=== PATIENT | male | born 1995 | race Caucasian/White ===

== ENCOUNTER 2023-04-11 09:01 | Outpatient (AMB) | payer BC, SELFPAY ==
--- NOTE | 2023-04-11 09:06 | MHC.PC.OV ---
Vital Signs 04/11/23 09:08 Height 6 ft Weight 235 lb BMI 31.9 BP 110/74 Blood Pressure Location Lt brachial Position Sitting Respiration 12 Pulse 70 Pulse Source Pulse Oximeter Temp 97.3 F Temp Source Temporal Artery Scan Pulse Oximetry (%) 98 Oxygen Delivery Method Room Air Intake Visit Reasons: discuss medical concerns Intake Note: Patient states that he is interested in getting a full blood screening. Patient states that he has a cyst on his left testicle that hasnt gone away but hasn't been painful. Patient states he has gotten a ultrasound of cyst and was told it was benign. Patient states he would also like cholesterol checked as well as A1c. Patient states he has thyroid disorder and needs T3 and T4 checked as well. Rental Coordinator Required: No Accompanied by: Self / Same As Patient Allergies No Known Allergies Allergy (Verified 04/11/23 09:37) Medication List - Last Reconciled 04/11/23 by Ashish Noriega CNP levothyroxine 150 mcg PO DAILY Tobacco use date assessed: 04/11/23 Dental Screening Dental Screen Date: 04/11/23 Did you have a dental visit in the last 12 months?: Yes Did you have a dental problem in the last 6 months where you did not have access to dental care?: No Was dental information given to patient?: Yes HPI HPI Comments History of Present Illness Details 28-year-old male presents to [facility] care. He notes that he was last evaluated by his former PCP and had blood work done on . He has past medical history significant for ADD, anxiety, palpitations, and hypothyroidism s/p iodine treatment for hyperthyroidism He is on levothyroxine 150 mcg daily. He states that he has never been on mediations for anxiety. He was on a medication for ADD which he does not recall, between 2006 and 2007. His mother stopped the mediations because he was reading a lot while on the medication. He notes that he was followed by cardiology for palpitations, he had a holter monitor no remarkable finding. He reports a painless cyst to his left testicle, found by ultrasound in 2021. He requests a new ultrasound. He notes that he is sexually active, in a monogamous relationship, and practices safe sex. He denies symptoms. He states that he has been eating healthy and exercising regularly. [facility] Medical History (Updated 04/11/23 @ 10:35 by Ashish Noriega CNP) ADD (attention deficit disorder) Anxiety Heart palpitations Hypothyroid Irregular heart beat Male circumcision Surgical History (Updated 04/11/23 @ 09:21 by Kalina Peters MA) History of placement of ear tubes [place] teeth extracted Family History (Updated 04/11/23 @ 09:22 by Kalina Peters MA) Father Thyroid disease Mother Thyroid disease Lymphoma Melanoma Breast cancer Social History Housing: Condominium Patient Tobacco Use Status: Former Tobacco user e-Cigarette/Vaping Use: Currently Using (THC PEN) service: No Current occupational status: employed 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 1. Little interest or pleasure in doing things: several days 2. Feeling down, depressed, or hopeless: several days 3. Trouble falling or staying asleep, or sleeping too much: nearly every day 4. Feeling tired or having little energy: several days 5. Poor appetite or overeating: nearly every day 6. Feeling bad about yourself - or that you are a failure or have let yourself or your family down: more than half the days 7. Trouble concentrating on things, such as reading the newspaper or watching television: nearly every day 8. Moving or speaking so slowly that other people could have noticed. Or the opposite - being so fidgety or restless that you have been moving around a lot more than usual: not at all 9. Thoughts that you would be better off or of hurting yourself in some way: not at all Total score: 14 Depression Screening Interpretation: Positive Depression Screening Follow-up: Declines treatment Source: Developed by Drs. Marcelino Agrawal, Eugenia El, Jerrell Gates and colleagues, with an educational carlos from [facility]. Thrive Questionnaire Date Thrive assessed: 04/11/23 I am a: Patient What is your living situation today?: I have a steady place to live Within the past 12 months, did the food you bought not last and you didn't have the money to get more?: Never true Within the past 12 months, did you worry whether your food would run out before you got money to buy more?: Never true Do you have trouble paying for medicines?: No Do you have trouble getting transportation to medical appointments?: No Do you have trouble paying your heating and electricity bill?: No Do you have trouble taking care of your child, family member or friend?: No Do you have trouble with day-to-day activities such as bathing, preparing meals, shopping, managing finances, etc.?: No Are you currently unemployed and looking for a job?: No Are you interested in more education?: Yes Please select the resources that you would like help with: Education Currently or been in a relationship where the following occur: no concerns reported AUDIT C Alcohol Use Questionnaire (AUDIT-C) 1. How often do you have a drink containing alcohol?: Monthly or less 2. How many drinks containing alcohol do you have on a typical day when you are drinking?: 3 or 4 3. How often do you have six or more drinks on one occasion?: Never Total Score: 2 VINAY-7 AMB Questionnaire VINAY-7 Date VINAY - 7 assessed: 04/11/23 Feeling nervous, anxious, or on edge: 3 = Nearly every day Not being able to stop or control worryin = More than half the days Worrying too much about different things: 2 = More than half the days Trouble relaxin = More than half the days Being so restless that it is hard to sit still: 1 = Several days Becoming easily annoyed or irritable: 1 = Several days Feeling afraid as if something awful might happen: 2 = More than half the days Total VINAY-7 score (0-4 normal; 5-9 mild; 10-14 moderate; 15-21 severe): 13 Source: Developed by Drs. Marcelino Agrawal, Eugenia El, Jerrell Gates and colleagues, with an educational carlos from [facility]. Review of Systems Const Details: Const Denies chills, Denies fatigue, Denies fever(s), Denies headache(s) and Denies weakness ENT Denies dizziness and Denies headache(s) Card Denies chest pain, Denies lightheadedness, Denies dyspnea and Denies other (Palpitations) Resp Denies cough, Denies dyspnea, Denies wheezing and Denies other ( shortness of breath) GI Denies abdominal pain, Denies melena, Denies hematochezia, Denies change in bowel habits, Denies dyspepsia and Denies nausea Reports left testicular cyst, Denies hematuria and Denies dysuria Musc Denies abnormal gait, Denies myalgias, Denies arthralgias, Denies numbness and Denies tingling Skin/Breast Denies rash, Denies unusual bruising and Denies wounds Neuro Denies abnormal gait, Denies dizziness, Denies headache(s), Denies memory loss, Denies numbness, Denies Sensory deficit (Neuro), Denies tingling and Denies weakness Psych Reports anxiety and Denies depression Endo Denies fatigue Aller/Immun Denies wheezing Physical exam (Primary Care) Vital Signs: Last Vital Signs Temp 97.3 F 04/11/23 09:08 Pulse 70 04/11/23 09:08 Resp 12 04/11/23 09:08 BP 110/74 04/11/23 09:08 Pulse Ox 98 04/11/23 09:08 Oxygen Delivery Method Room Air 04/11/23 09:08 BMI result Body Mass Index 31.9 Tobacco/Smoking Status: Tobacco use Status Tobacco use date assessed 04/11/23 04/11/23 09:26 Patient Tobacco Use Status Former Tobacco user 04/11/23 09:26 e-Cigarette/Vaping Use Currently Using (THC PEN) 04/11/23 09:26 PHQ-9: PHQ-9 Score PHQ-9: Total score 14 04/11/23 09:43 Depression Screening Interpretation: Positive Depression Screening Follow-up: Declines treatment Thrive Assessment: Date of Thrive Assessment Date Thrive assessed 04/11/23 04/11/23 09:26 Currently or been in a relationship where the following occur: no concerns reported Const Other: General: no acute distress and well developed Nutritional Appearance: well nourished Orientation/consciousness: patient oriented x3 HENMT Head: Yes normocephalic and Yes atraumatic Eyes General: appearance normal, both eyes and all related structures Pupils: Equal, round and reactive pupils present EOM: EOMs intact bilaterally Resp Effort & Inspection: normal respiratory effort Auscultation: clear to auscultation bilaterally Cardio Rate: regular rate Rhythm: regular rhythm Heart sounds: S1 normal heart sound present, S2 normal heart sound present, no gallops, no murmurs and no rubs GI Palpation (GI): No Abdominal aortic bruit present, Soft to palpation, nontender, No hepatosplenomegaly present and No Rebound tenderness present Auscultation: normal bowel sounds General: Yes no CVA tenderness Scrotum: Normal testicular exam Back/Spine/Pelvis Back: no CVA tenderness Cervical Spine: cervical ROM normal and No Cervical spine tenderness Thoracic/Lumbar Spine: thoraco-lumbar ROM normal, No pain with thoraco-lumbar ROM, No thoracic spinal tenderness and No lumbar spinal tenderness Extrem General: Yes normal to inspection, No edema and No calf tenderness Skin General: warm and dry. Normal skin color. Normal skin turgor Lesions: no lesions Rashes: no rashes Trauma: no lacerations or abrasions Wounds: no wounds Nails: normal Neuro General: patient oriented x3, gait normal and no focal neuro deficit Cranial nerves: Yes Equal, round and reactive pupils present Cognition (Neuro): normal cognition Gait exam (Neuro): Normal gait present Motor exam (neuro): 5/5 motor strength present throughout Sensory Exam: No Sensory deficit (Neuro) Psych Appearance: grossly normal Affect: normal affect Attitude: cooperative Thought process: Normal thought process present Assessment and Plan Assessment & Plan (1) Postablative hypothyroidism: Code(s): E89.0 - Postprocedural hypothyroidism Plan: Reports hypothyroidism s/p iodine treatment for hyperthyroidism Currently on levothyroxine 150 mcg daily. Continue to take daily as prescribed TSH/T4 ordered Will review lab results and make changes to his care plan if warranted (2) Anxiety and depression: Code(s): F41.9 - Anxiety disorder, unspecified; F32.A - Depression, unspecified Plan: PHQ-9 and VINAY-7 scores revealed moderate depression and anxiety respectively Declines therapy or medication treatment He states that he will continue to eat healthy and exercise Healthy diet and routine exercise encouraged Advised to inform his PCP if he changes his mind on therapy or medication treatment Follow-up in 1 month or return sooner with worsening or new symptoms Verbalized understanding and agreed with treatment plan. (3) Testicular cyst: Code(s): N44.2 - Benign cyst of testis Plan: He reports a painless cyst to his left testicle, found by ultrasound in 2021. Ultrasound ordered He will be contacted by ultrasound department schedule appointment Return with symptoms or concerns Verbalized understanding and agreed with treatment plan. (4) Laboratory tests ordered as part of a complete physical exam (CPE): Code(s): Z00.00 - Encounter for general adult medical examination without abnormal findings Plan: Fasting labs ordered as part of a complete physical exam. Advised to fast for at least 10 hours before getting labs drawn. May drink water Verbalized understanding and agreed with treatment plan. Orders: Orders Comprehensive Dike. Panel Fast Today Z00.00 - Encounter for general adult medical examination without abnormal findings Lipid Panel Today Z00.00 - Encounter for general adult medical examination without abnormal findings TSH reflex Free T4 Today Z00.00 - Encounter for general adult medical examination without abnormal findings Complete Blood Count Auto Diff Today Z00.00 - Encounter for general adult medical examination without abnormal findings UA CC w/rflx Micro + Cult Today Z00.00 - Encounter for general adult medical examination without abnormal findings US scrotum Today N44.2 - Benign cyst of testis Coding Level of Care Code New Pt Level 3 (77991) Diagnoses Postablative hypothyroidism E89.0 Anxiety and depression F41.9; F32.A Testicular cyst N44.2 Laboratory tests ordered as part of a complete physical exam (CPE) Z00.00
[2023-04-11 09:08] VITALS: BP 110/74; PULSE 70; RESP 12; TEMP 36.3; O2SAT 98; BMI 31.9
== END 2023-04-11 10:16 | disposition home or self-care (01) ==
PROVIDERS: PCP Nurse Practitioner Family; Visit Provider Nurse Practitioner Family
DX: E89.0 Postprocedural hypothyroidism (principal); F41.9 Anxiety disorder, unspecified; F32.A Depression, unspecified; N44.2 Benign cyst of testis; Z00.00 Encounter for general adult medical examination without abnormal findings
CPT/HCPCS: 99203

== ENCOUNTER 2023-04-11 10:25 | Outpatient (REF) | payer BC, SELFPAY ==
[2023-04-11 14:27] LABS: MANUAL DIFF FLAG NO
[2023-04-11 14:31] LABS: Appearance Urine Clear; Color Urine Yellow; Glucose Urine UA Negative (Negative); Leukocyte Esterase Urine Negative (Negative); Nitrite Urine Negative (Negative); PH 6.5 (5.0-9.0); Urine Blood Negative (Negative); Urine Ketones Negative (Negative); Urine Protein Negative (Neg-Trace)
[2023-04-11 14:41] LABS: Basophils Percent Auto 0.6 % (0-2); Eosinophils Absolute Auto 0.1 X10*3/uL (0.0-0.4); Eosinophils Percent Auto 1.1 % (0-4); Hematocrit 45.1 % (42.0-52.0); Hemoglobin 14.7 g/dl (14.0-18.0); Imm Gran Abs Auto 0.01 X10*3/uL (0.00-0.03); Imm Gran Pct Auto 0.2 % (0.0-0.4); Lymphocytes Absolute Auto 1.9 X10*3/uL (1.2-4.9); Lymphocytes Percent Auto 35.7 % (20-40); Mean Corpuscular HGB Conc 32.6 g/dl (31.0-36.0); Mean Corpuscular Hemoglobin 27.6 pg (27.0-33.0); Mean Corpuscular Volume 84.6 fL (80.0-98.0); Mean Platelet Volume 9.5 fL (9.4-12.4); Monocytes Absolute Auto 0.5 X10*3/uL (0.1-1.2); Neutrophils Absolute Auto 2.8 x10*3/uL (2.0-8.3); Neutrophils Percent Auto 52.4 % (45-73); Platelet Count 295 X10*3/uL (160-400); Red Blood Count 5.33 X10*6/uL (4.60-5.80); Red Cell Distribution Width 12.7 % (11.0-16.0); White Blood Count 5.3 X10*3/uL (4.8-10.8)
[2023-04-12 01:56] LABS: Alanine Aminotransferase 38 U/L (0-40); Albumin Level 4.8 g/dL (3.5-5.0); Alkaline Phosphatase 47 U/L (39-117); Anion Gap 11 (12-20); Aspartate Amino Transferase 23 U/L (5-37); Bilirubin Total 0.7 mg/dL (0.0-1.0); Blood Urea Nitrogen 18 mg/dL (9-16); Calcium 9.5 mg/dL (8.4-10.2); Carbon Dioxide 28 mmol/L (22-29); Chloride 104 mmol/L (96-108); Cholesterol 152 mg/dL; Estimated Glomerular Filt Rate > 60; Glucose Fasting 84 mg/dL (60-99); HDL Cholesterol 54 mg/dL; LDL Cholesterol Calculated 81 mg/dl; Potassium 4.5 mmol/L (3.3-5.1); Sodium 138 mmol/L (135-145); Total Protein 7.4 g/dL (6.5-8.0); Triglycerides 89 mg/dL
[2023-04-12 02:13] LABS: TSH reflex Free T4 2.71 uIU/mL (0.32-4.0)
== END 2023-04-11 10:26 | disposition home or self-care (01) ==
LOC: HO.WFDLDS 10:25
PROVIDERS: Visit Provider Nurse Practitioner Family
DX: Z00.00 Encounter for general adult medical examination without abnormal findings (principal); N44.2 Benign cyst of testis
CPT/HCPCS: 36415; 80053; 80061; 81003; 84443; 85025

== ENCOUNTER 2023-04-16 08:52 | Outpatient (REF) | payer BC, SELFPAY ==
--- NOTE | ~2023-04-16 | US_ITS ---
EXAMINATION: US SCROTUM CLINICAL INFORMATION: 28-year-old male with left testicular pain radiating to the shoulder. COMPARISON: None available. TECHNIQUE: A sonogram of the scrotum was performed assessing fontana-scale appearance and color Doppler flow. Spectral Doppler analysis of the arterial and venous flow were performed in the testes bilaterally. FINDINGS: RIGHT: Right testicle measures 5.0 x 2.3 x 3.7 cm, volume 22.3 mL. No focal testicular parenchymal lesions are visualized. Spectral Doppler analysis of the arterial and venous flow is mildly diminished in the right testis, in comparison to the left. Right epididymal head is normal in size, with 0.4 x 0.3 x 0.5 cm simple cyst.. No right hydrocele or varicocele is seen. Right epididymal Doppler flow is normal. LEFT: Left testicle measures 5.0 x 2.3 x 3.3 cm, volume 20 mL. No focal testicular parenchymal lesions are visualized. Spectral Doppler analysis of the arterial and venous flow is normal in the left testis. Left epididymal head is normal in size. Is mild hydrocele but no varicocele on the left. Left epididymal Doppler flow is normal. There is Left epididymal head 0.4 x 0.5 x 0.7 cm appendix. US/US scrotum IMPRESSION: Trace of hydrocele on the left. Simple cyst in the right epididymal head is mildly diminished flow or in the right testicle
== END 2023-04-16 08:53 | disposition home or self-care (01) ==
LOC: HO.HMGCX 08:52
PROVIDERS: PCP Nurse Practitioner Family; Visit Provider Nurse Practitioner Family
DX: N44.2 Benign cyst of testis (principal)
CPT/HCPCS: 76870

== ENCOUNTER 2023-05-11 09:53 | Outpatient (AMB) | payer BC, SELFPAY ==
--- NOTE | 2023-05-11 10:10 | A.OFFVIS_ITS ---
Intake Intake Visit Reasons: Benign cyst of testis Intake Note: New Patient presents for initial visit benign cyst of testis Urology Medications: none Blood Thinner: none Management Liaison Required: No Accompanied by: Self / Same As Patient Allergies No Known Allergies Allergy (Verified 05/11/23 11:03) Medication List - Last Reconciled 05/11/23 by SAVANNAH Mederos levothyroxine 150 mcg PO DAILY HPI HPI Comments History of Present Illness0 Details Lon is a very pleasant 28-year-old male patient of Dr. Noriega. He has a past medical history of ADD, anxiety, hypothyroidism, and palpitations. He presents to the office today as a new patient for left-sided hydrocele. Recent scrotal ultrasound results reviewed with the patient today. Trace hydrocele on left. Simple cyst in the right epididymal head. In discussion with the patient today he reports noting fluid filled sac to left testicle many years ago. He reports having followed-up with [facility] over 2 years ago at which time a scrotal ultrasound was ordered and reassurance was provided. Patient reports he recently moved here to [place] and would like to establish urological care. When asked he denies urinary urgency, urinary frequency, incontinence, nocturia, hematuria, dysuria, foul smelling urine, changes to urinary stream, flank pain, fever, and or chills. He is happy with his current voiding parameters. In assessment of the patient today small left- sided hydrocele present. Otherwise no masses, lesions, and or drainage noted to bilateral scrotum/ testicles/ and or penis. No pain elicited on exam today. In office urinalysis results reviewed with the patient today. Patient otherwise offers no other issues or concerns at this time. 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 Cognitive needs: No Hearing needs: No Vision needs: No Review of Systems Const Reports as per HPI Eyes Reports no additional complaints ENT Reports no additional complaints Card Reports as per HPI Resp Reports no additional complaints GI Reports no additional complaints Reports as per HPI Musc Reports no additional complaints Neuro Reports as per HPI Psych Reports as per HPI Endo Reports no additional complaints Physical Exam Const General: cooperative, healthy appearing, comfortable, no acute distress, well developed, alert and awake Orientation/consciousness: patient oriented x3 Limitations: no limitations HEENT Head: Yes normal to inspection, Yes normocephalic and Yes atraumatic Ears: hearing grossly normal bilaterally Eyes General: appearance normal, both eyes and all related structures Neck Neck: Yes normal visual inspection and Yes trachea midline Chest Chest palpation & inspection: normal inspection of the chest Resp Effort & Inspection: normal respiratory effort and able to speak in complete sentences Cardio Rate: regular rate GI Inspection: Yes normal to inspection General: Yes no CVA tenderness Penis: normal penis and circumcised Scrotum: Varicocele present (small ) on the left Testes: Testes normal Back/Spine/Pelvis Back: no CVA tenderness Skin General skin exam: no rashes or lesions noted Neuro General: patient oriented x3 Extrem General: Yes normal to inspection Psych Appearance: grossly normal and well kempt Mental Status: mental status grossly normal Speech and movement: Normal speech and movement present and Clear speech present Affect: normal affect Attitude: cooperative Thought process: Normal thought process present Thought content: Normal thought content present Insight: Good insight present (Psych) Judgement: Good judgement present (Psych) Results AMB Urinalysis, Automated UA Leukoctes 0 Michaela/uL Last Edit by [employer] on 05/11/23 10:25 UA Nitrite Last Edit by [employer] on 05/11/23 10:25 UA Urobilinogen 0.2 mg/dL Last Edit by [employer] on 05/11/23 10:25 UA Protein 15 mg/dL Last Edit by [employer] on 05/11/23 10:25 UA pH 8.5 Last Edit by [employer] on 05/11/23 10:25 UA Blood 0 Rigoberto/uL Last Edit by [employer] on 05/11/23 10:25 UA Specific [place] 1.010 Last Edit by Juany Gandhi on 05/11/23 10:25 UA Ketone Negative Last Edit by Juany Gandhi on 05/11/23 10:25 UA Bilirubin 0 mg/dL Last Edit by Juany Gandhi on 05/11/23 10:25 UA Glucose 0 mg/dL Last Edit by Juany Gandhi on 05/11/23 10:25 Results Reviewed Results Reviewed: Laboratory Last Values Urine pH (Auto) 8.5 05/11/23 10:11 Specific [place] (Auto) 1.010 05/11/23 10:11 Urine Protein (Auto) 15 mg/dL 05/11/23 10:11 Glucose (UA)(Auto) 0 mg/dL 05/11/23 10:11 Urine Ketones (Auto) Negative 05/11/23 10:11 Urine Blood (Auto) 0 Rigoberto/uL 05/11/23 10:11 Urine Bilirubin (Auto) 0 mg/dL 05/11/23 10:11 Urine Urobilinogen (Auto) 0.2 mg/dL 05/11/23 10:11 Leukocyte Esterase (Auto) 0 Michaela/uL 05/11/23 10:11 Date of Service: 04/16/23 EXAMINATION: US SCROTUM FINDINGS: RIGHT: Right testicle measures 5.0 x 2.3 x 3.7 cm, volume 22.3 mL. No focal testicular parenchymal lesions are visualized. Spectral Doppler analysis of the arterial and venous flow is mildly diminished in the right testis, in comparison to the left. Right epididymal head is normal in size, with 0.4 x 0.3 x 0.5 cm simple cyst.. No right hydrocele or varicocele is seen. Right epididymal Doppler flow is normal. LEFT: Left testicle measures 5.0 x 2.3 x 3.3 cm, volume 20 mL. No focal testicular parenchymal lesions are visualized. Spectral Doppler analysis of the arterial and venous flow is normal in the left testis. Left epididymal head is normal in size. Is mild hydrocele but no varicocele on the left. Left epididymal Doppler flow is normal. There is Left epididymal head 0.4 x 0.5 x 0.7 cm appendix. IMPRESSION: Trace of hydrocele on the left. Simple cyst in the right epididymal head is mildly diminished flow or in the right testicle Assessment & Plan Assessment & Plan (1) Hydrocele: Code(s): N43.3 - Hydrocele, unspecified Plan In office urinalysis results reviewed with the patient today. Recent scrotal ultrasound results reviewed with the patient today; as noted above. Reassurance provided. Small left-sided hydrocele present; patient denies pain Discussed at length potential causes for hydroceles. Discussed surveillance monitoring verses hydrocelectomy; discussed risks and benefits of noted interventions/treatment options All questions were answered Patient reports to be happy with current voiding parameters Discussed follow-up PRN however patient would like to continue with surveillance monitoring with imaging. Scrotal ultrasound in 6 months. Follow-up in 6 months with imaging to be completed prior; or sooner with any issues, concerns, and or questions. Orders: Orders US scrotum 6 Months N43.3 - Hydrocele, unspecified AMB Urinalysis Automated 05/11/23 Z13.9 - Encounter for screening, unspecified Patient Instructions: The patient had an opportunity to ask questions regarding the treatment plan. All questions were answered. Physical exam, labs, and imaging were discussed and reviewed in detail. As well as risks, benefits, and discussion of treatment choices. No major barriers to understanding were identified. The patient expressed understanding and agreement with the above treatment plan. The patient was made aware they should contact our office by phone for worsening of their current condition, the appearance of new symptoms, or with any ques tions or concerns. Compliance is encouraged with any medications and follow up testing that is ordered. It is a privilege to be allowed the opportunity to participate in? your urological care.? Again, if you have any questions or concerns If you have any questions or concerns please do not hesitate to contact me. The office is [phone]. This note is constructed using voice recognition software. While every effort has been made to ensure accuracy fireman errors may have been included. Yours sincerely, SAVANNAH Mederos Coding Level of Care Code New Pt Level 3 (01701) Diagnoses Hydrocele N43.3
== END 2023-05-11 11:42 | disposition home or self-care (01) ==
PROVIDERS: PCP Nurse Practitioner Family; Visit Provider Nurse Practitioner Family
DX: N43.3 Hydrocele, unspecified (principal)
CPT/HCPCS: 99203

== ENCOUNTER → 2023-05-11 09:53 | Outpatient (BNVA) | payer BC, SELFPAY | PROVIDERS: PCP Nurse Practitioner Family; Visit Provider Nurse Practitioner Family | DX: N43.3 Hydrocele, unspecified (principal) | CPT/HCPCS: 81003 ==

== ENCOUNTER 2023-05-15 08:19 | Outpatient (AMB) | payer BC, SELFPAY ==
--- NOTE | 2023-05-14 09:19 | ...WebTmpl.AM.PHNO ---
Nursing Note MA called patient to confirm appointment, completed the screening for VINAY-7 and PHQ-9. Patient reports he is aware that he struggles with anxiety and depression, he reports he does not feel he is in an active anxiety episode. Patient reports the appointment should be more about his concern for testicular cancer, which patient reports he does not have, and the urology referral. VINAY-7 AMB Questionnaire VINAY-7 Date VINAY - 7 assessed: 05/14/23 Feeling nervous, anxious, or on edge: 3 = Nearly every day Not being able to stop or control worryin = Several days Worrying too much about different things: 3 = Nearly every day Trouble relaxin = Several days Being so restless that it is hard to sit still: 3 = Nearly every day Becoming easily annoyed or irritable: 1 = Several days Feeling afraid as if something awful might happen: 1 = Several days Total VINAY-7 score (0-4 normal; 5-9 mild; 10-14 moderate; 15-21 severe): 13 Source: Developed by Drs. Marcelino Agrawal, Eugenia El, Jerrell Gates and colleagues, with an educational carlos from [employer]. PHQ-9 Over the last 2 weeks, how often have you been bothered by any of the following problems? 1. Little interest or pleasure in doing things: not at all 2. Feeling down, depressed, or hopeless: not at all 3. Trouble falling or staying asleep, or sleeping too much: more than half the days 4. Feeling tired or having little energy: several days 5. Poor appetite or overeating: more than half the days 6. Feeling bad about yourself - or that you are a failure or have let yourself or your family down: nearly every day 7. Trouble concentrating on things, such as reading the newspaper or watching television: more than half the days 8. Moving or speaking so slowly that other people could have noticed. Or the opposite - being so fidgety or restless that you have been moving around a lot more than usual: not at all 9. Thoughts that you would be better off or of hurting yourself in some way: not at all Total score: 10 Source: Developed by Drs. Marcelino Agrawal, Eugenia El, Jerrell Gates and colleagues, with an educational carlos from [employer]
--- NOTE | 2023-05-15 08:26 | A.OFFPC_ITS ---
Vital Signs 05/15/23 08:32 Height 6 ft Weight 236 lb 4 oz BMI 32.0 BP 116/76 Blood Pressure Location Rt brachial Position Sitting Respiration 12 Pulse 69 Pulse Source Pulse Oximeter Temp 98.1 F Temp Source Temporal Artery Scan Pulse Oximetry (%) 99 Oxygen Delivery Method Room Air Intake Visit Reasons: 1 mos CPE, anxiety, depression, urology Intake Note: Patient reports he is aware that he struggles with anxiety and depression, he reports he does not feel he is in an active anxiety episode. Patient reports the appointment should be more about his concern for testicular cancer, which patient reports he does not have, and the urology referral. Pet Technologist Required: No Accompanied by: Self / Same As Patient Allergies No Known Allergies Allergy (Verified 05/15/23 08:45) Medication List - Last Reconciled 05/15/23 by Ashish Noriega CNP levothyroxine 150 mcg PO DAILY Tobacco use date assessed: 04/11/23 Dental Screening Dental Screen Date: 05/15/23 Did you have a dental visit in the last 12 months?: Yes Did you have a dental problem in the last 6 months where you did not have access to dental care?: No Was dental information given to patient?: Patient has dentist HPI HPI Comments History of Present Illness Details 28-year-old male presents for anxiety and depression follow-up. He established care last month. He declined talk therapy and medication regimen. He noted he will continue with lifestyle modifications. An ultrasound was performed for reports of painless cyst to his left testicle with the following findings: IMPRESSION: Trace of hydrocele on the left. Simple cyst in the right epididymal head is mildly diminished flow or in the right testicle He was seen by Urology last week. The is to continue with surveillance monitoring with imaging. He is scheduled to have scrotal ultrasound in 6 months.?Discussed follow-up PRN however patient would like to continue with surveillance monitoring with imaging. Scrotal ultrasound in 6 months.? He denies acute symptoms today. 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 1. Little interest or pleasure in doing things: not at all 2. Feeling down, depressed, or hopeless: not at all 3. Trouble falling or staying asleep, or sleeping too much: more than half the days 4. Feeling tired or having little energy: several days 5. Poor appetite or overeating: more than half the days 6. Feeling bad about yourself - or that you are a failure or have let yourself or your family down: nearly every day 7. Trouble concentrating on things, such as reading the newspaper or watching television: more than half the days 8. Moving or speaking so slowly that other people could have noticed. Or the opposite - being so fidgety or restless that you have been moving around a lot more than usual: not at all 9. Thoughts that you would be better off or of hurting yourself in some way: not at all Total score: 10 Depression Screening Interpretation: Positive Depression Screening Follow-up: Existing condition and Declines treatment Source: Developed by Drs. Marcelino Agrawal, Eugeina El, Jerrell Gates and colleagues, with an educational carlos from [employer]. Thrive Questionnaire Date Thrive assessed: 04/11/23 VINAY-7 AMB Questionnaire VINAY-7 Date VINAY - 7 assessed: 05/15/23 Feeling nervous, anxious, or on edge: 3 = Nearly every day Not being able to stop or control worryin = Several days Worrying too much about different things: 3 = Nearly every day Trouble relaxin = Several days Being so restless that it is hard to sit still: 3 = Nearly every day Becoming easily annoyed or irritable: 1 = Several days Feeling afraid as if something awful might happen: 1 = Several days Total VINAY-7 score (0-4 normal; 5-9 mild; 10-14 moderate; 15-21 severe): 13 Source: Developed by Drs. Marcelino Agrawal, Eugenia El, Jerrell Gates and colleagues, with an educational carlos from [employer]. Review of Systems Const Details: Denies chills, Denies fatigue, Denies fever(s), Denies headache(s) and Denies weakness HEENT Denies change in vision, Denies dizziness, Denies headache(s), Denies hearing loss, Denies nasal congestion, Denies sinus pain, Denies sinus pressure and Denies sore throat Card Denies chest pain, Denies lightheadedness, Denies dyspnea and Denies other (palpitations) Resp Denies cough, Denies dyspnea and Denies wheezing GI Denies abdominal pain, Denies melena, Denies hematochezia, Denies change in bowel habits, Denies dyspepsia and Denies nausea Denies hematuria and Denies dysuria Musc Denies abnormal gait, Denies myalgias, Denies arthralgias, Denies numbness and Denies tingling Skin/Breast Denies rash, Denies unusual bruising and Denies wounds Neuro Denies abnormal gait, Denies dizziness, Denies headache(s), Denies memory loss, Denies numbness, Denies Sensory deficit (Neuro), Denies tingling and Denies weakness Psych Denies anxiety, Denies depression and Denies memory loss Endo Denies cold intolerance, Denies fatigue, Denies heat intolerance, Denies polydipsia and Denies polyuria Evaristo/Lymph Denies easy bleeding and Denies easy bruising Aller/Immun Denies wheezing Physical exam (Primary Care) Vital Signs: Last Vital Signs Temp 98.1 F 05/15/23 08:32 Pulse 69 05/15/23 08:32 Resp 12 05/15/23 08:32 BP 116/76 05/15/23 08:32 Pulse Ox 99 05/15/23 08:32 Oxygen Delivery Method Room Air 05/15/23 08:32 BMI result Body Mass Index 32.0 Tobacco/Smoking Status: Tobacco use Status Tobacco use date assessed 04/11/23 05/15/23 08:27 Patient Tobacco Use Status Former Tobacco user 08/22/23 08:27 e-Cigarette/Vaping Use Currently Using (THC PEN) 05/15/23 08:27 PHQ-9: PHQ-9 Score PHQ-9: Total score 10 05/15/23 08:53 Depression Screening Interpretation: Positive Depression Screening Follow-up: Existing condition and Declines treatment Thrive Assessment: Date of Thrive Assessment Date Thrive assessed 04/11/23 05/15/23 08:27 Const Other: General: no acute distress, well developed, alert and awake Nutritional Appearance: well nourished Orientation/consciousness: patient oriented x3 HENMT Head: Yes normocephalic and Yes atraumatic Ears: hearing grossly normal bilaterally and TM's normal bilaterally General nose exam: Normal external nose present and Normal nares present Mouth: Normal oral and palatal mucosa present and moist mucous membranes Teeth and gingiva: dentition normal Throat: Yes oropharynx normal Eyes Pupils: Equal, round and reactive pupils present and Pupil accommodation reflex normal EOM: EOMs intact bilaterally Neck Neck: Yes normal visual inspection, Yes no lymphadenopathy and Yes trachea midline Thyroid: Thyroid normal Carotids: no bruits Lymphatic: no lymphadenopathy noted Chest Chest palpation & inspection: normal inspection of the chest Resp Effort & Inspection: normal respiratory effort Auscultation: clear to auscultation bilaterally Cardio Rate: regular rate Rhythm: regular rhythm Heart sounds: S1 normal heart sound present, S2 normal heart sound present, no gallops, no murmurs and no rubs Bruits: no abdominal aortic bruits and no carotid bruits GI Palpation (GI): No Abdominal aortic bruit present, Soft to palpation, nontender, No hepatosplenomegaly present and No Rebound tenderness present Auscultation: normal bowel sounds General: Yes no CVA tenderness Back/Spine/Pelvis Back: no CVA tenderness Cervical Spine: cervical ROM normal and No Cervical spine tenderness Thoracic/Lumbar Spine: thoraco-lumbar ROM normal, No pain with thoraco-lumbar ROM, No thoracic spinal tenderness and No lumbar spinal tenderness Skin General: warm and dry. Normal skin color. Normal skin turgor Lesions: no lesions Rashes: no rashes Trauma: no lacerations or abrasions Wounds: no wounds Nails: normal Neuro General: patient oriented x3, gait normal and CN's II-XI intact bilaterally Cranial nerves: Yes Equal, round and reactive pupils present Cognition (Neuro): normal cognition Gait exam (Neuro): Normal gait present Motor exam (neuro): 5/5 motor strength present throughout Sensory Exam: No Sensory deficit (Neuro) Deep tendon reflexes (DTR's): Right patellar reflex intensity grade: 2+ and Left patellar reflex intensity grade: 2+ Extrem General: Yes normal to inspection, No edema and No calf tenderness Psych Appearance: grossly normal Affect: normal affect Attitude: cooperative Thought process: Normal thought process present Assessment and Plan Assessment & Plan (1) Normal physical examination, routine: Code(s): Z00.00 - Encounter for general adult medical examination without abnormal findings Plan: No significant physical restrictions or limitations noted Recent blood work reviewed with the patient; results were unremarkable Follow-up in 6 months for hypothyroidism Return sooner with concerns or symptoms Verbalized understanding and agreed with treatment plan. (2) Anxiety and depression: Code(s): F41.9 - Anxiety disorder, unspecified; F32.A - Depression, unspecified Plan: PHQ-9 and VINAY-7 scores revealed moderate depression and anxiety He declines talk therapy and medication regimen He will continue with lifestyle modification Healthy diet and routine exercise encouraged Advised to follow-up with his PCP if he changes his mind on therapy or medication treatment or if his symptoms persist or worsen Verbalized understanding and agreed with treatment plan. (3) Hydrocele: Code(s): N43.3 - Hydrocele, unspecified Plan: Continue follow-up with urology as planned Verbalized understanding and agreed with the plan. (4) Postablative hypothyroidism: Code(s): E89.0 - Postprocedural hypothyroidism Plan: Recent TSH is normal Continue with current treatment regimen Follow-up in 6 months. Perform TSH/T4 blood work before next visit Verbalized understanding and agreed with treatment plan. Coding Level of Care Code Est Pt Prev Care 18-39y(99215) Diagnoses Normal physical examination, routine Z00.00 Anxiety and depression F41.9; F32.A Hydrocele N43.3 Postablative hypothyroidism E89.0
[2023-05-15 08:32] VITALS: BP 116/76; PULSE 69; RESP 12; TEMP 36.7; O2SAT 99; BMI 32.0
== END 2023-05-15 09:10 | disposition home or self-care (01) ==
PROVIDERS: PCP Nurse Practitioner Family; Visit Provider Nurse Practitioner Family
DX: Z00.00 Encounter for general adult medical examination without abnormal findings (principal); F41.9 Anxiety disorder, unspecified; F32.A Depression, unspecified; N43.3 Hydrocele, unspecified; E89.0 Postprocedural hypothyroidism
CPT/HCPCS: 99395

== ENCOUNTER 2023-07-04 13:42 | Outpatient (AMB) | payer BC, SELFPAY ==
--- NOTE | 2023-07-04 13:46 | A.OFFPC_ITS ---
Vital Signs 07/04/23 13:47 Height 6 ft Weight 241 lb 2 oz BMI 32.7 BP 110/72 Blood Pressure Location Lt brachial Position Sitting Respiration 13 Pulse 93 Pulse Source Pulse Oximeter Temp 97.7 F Temp Source Oral Pulse Oximetry (%) 97 Oxygen Delivery Method Room Air Intake Visit Reasons: ? sinus infection, sore throat Intake Note: Patient states that he believes he got sick when traveling on a plane. Patient states that he wasnt feeling well on 06/05/23 and by 06/13/23 he started feeling better and went to the gym. Patient states that he went to a concert on 06/23/23 - 06/24/23 and when he got home and woke up he states that he had the worst post nasal drip. He states that when he blew his nose he had bright green mucus and dark phlegm when he coughs. Patient states that he has tight tension in back of neck as well as body aches and pains. Patient also has diarrhea. Tripe Scraper Required: No Accompanied by: Self / Same As Patient Allergies No Known Allergies Allergy (Verified 07/04/23 14:26) Medication List - Last Reconciled 07/04/23 by Ashish Noriega CNP ibuprofen (Advil) 400 mg PO Q6H levothyroxine 150 mcg PO DAILY Tobacco use date assessed: 04/11/23 Dental Screening Dental Screen Date: 07/04/23 Did you have a dental visit in the last 12 months?: Yes Did you have a dental problem in the last 6 months where you did not have access to dental care?: No Was dental information given to patient?: Patient has dentist HPI HPI Comments History of Present Illness Details 28-year-old male presents with complaint s of a sore throat for the past 8-9 days. He reports associated runny nose with green discharge, productive cough with dark-green phlegm, body aches, fatigue, and diarrhea. He denies fever, chills, weakness. He has been taking Advil with improvement improvement of the aches. He denies sick contacts. He had multiple negative rapid COVID tests. 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 Marcelino Agrawal, Eugenia El, Jerrell Gates and colleagues, with an educational carlos from [employer]. Review of Systems Const Details: Const Denies chills, Reports fatigue, Denies fever(s), Denies headache(s) and Denies weakness ENT Reports sore throat, Denies dizziness and Denies headache(s) Card Denies chest pain, Denies lightheadedness, Denies dyspnea and Denies other (Palpitations) Resp Reports cough, Denies dyspnea, Denies wheezing and Denies other ( shortness of breath) GI Denies abdominal pain, Denies melena, Denies hematochezia, Denies change in bowel habits, Denies dyspepsia and Denies nausea Denies hematuria and Denies dysuria Musc Denies abnormal gait, Denies myalgias, Denies arthralgias, Denies numbness and Denies tingling Skin/Breast Denies rash, Denies unusual bruising and Denies wounds Neuro Denies abnormal gait, Denies dizziness, Denies headache(s), Denies memory loss, Denies numbness, Denies Sensory deficit (Neuro), Denies tingling and Denies weakness Psych Denies anxiety, Denies depression, Denies memory loss Endo Denies cold intolerance, Denies fatigue, Denies heat intolerance, Denies polydipsia and Denies polyuria Aller/Immun Denies wheezing Physical exam (Primary Care) Vital Signs: Last Vital Signs Temp 97.7 F 07/04/23 13:47 Pulse 93 07/04/23 13:47 Resp 13 07/04/23 13:47 BP 110/72 07/04/23 13:47 Pulse Ox 97 07/04/23 13:47 Oxygen Delivery Method Room Air 07/04/23 13:47 BMI result Body Mass Index 32.7 Tobacco/Smoking Status: Tobacco use Status Tobacco use date assessed 04/11/23 07/04/23 13:56 Patient Tobacco Use Status Never used Tobacco 07/04/23 13:56 e-Cigarette/Vaping Use Currently Using (THC PEN) 07/04/23 13:56 Thrive Assessment: Date of Thrive Assessment Date Thrive assessed 04/11/23 07/04/23 13:56 Const Other: General: no acute distress and well developed Nutritional Appearance: well nourished Orientation/consciousness: patient oriented x3 HENMT Head is normocephalic Bilateral ear canal and TM are normal Nasal turbinates with significant erythema, no edema or discharge noted Oropharynx is pink and moist Sinuses are nontender with palpation No auricular or cervical lymphadenopathy Eyes General: appearance normal, both eyes and all related structures Pupils: Equal, round and reactive pupils present EOM: EOMs intact bilaterally Resp Effort & Inspection: normal respiratory effort Auscultation: clear to auscultation bilaterally Cardio Rate: regular rate Rhythm: regular rhythm Heart sounds: S1 normal heart sound present, S2 normal heart sound present, no gallops, no murmurs and no rubs GI Palpation (GI): No Abdominal aortic bruit present, Soft to palpation, nontender, No hepatosplenomegaly present and No Rebound tenderness present Auscultation: normal bowel sounds General: Yes no CVA tenderness Back/Spine/Pelvis Back: no CVA tenderness Cervical Spine: cervical ROM normal and No Cervical spine tenderness Thoracic/Lumbar Spine: thoraco-lumbar ROM normal, No pain with thoraco-lumbar ROM, No thoracic spinal tenderness and No lumbar spinal tenderness Extrem General: Yes normal to inspection, No edema and No calf tenderness Skin General: warm and dry. Normal skin color. Normal skin turgor Lesions: no lesions Rashes: no rashes Trauma: no lacerations or abrasions Wounds: no wounds Nails: normal Neuro General: patient oriented x3, gait normal and no focal neuro deficit Cranial nerves: Yes Equal, round and reactive pupils present Cognition (Neuro): normal cognition Gait exam (Neuro): Normal gait present Sensory Exam: No Sensory deficit (Neuro) Psych Appearance: grossly normal Affect: normal affect Attitude: cooperative Thought process: Normal thought process present Assessment and Plan Assessment & Plan (1) Viral upper respiratory illness: Code(s): J06.9 - Acute upper respiratory infection, unspecified Plan: Likely viral illness though possibly allergies. No exam evidence of bacterial infection Rapid strep test is negative Viral illness There is no antibiotic medication for viruses.? They must run their course.? Most average 5-7 days but 7-10 days is not uncommon and up to 14 days is still possible.? A cough is often the last symptom to resolve and this can last for weeks in some cases. Rest Hydrate well -? Drink plenty of fluids.? Especially water. Tylenol or ibuprofen for muscle aches, headache, fever/discomfort Robitussin for cough Cannot rule out COVID-19/RSV/Flu infection Nasal swab acquired and will be sent to the lab Return for new or worsening symptoms Verbalized understanding and agreed with treatment plan. (2) Cough: Code(s): R05.9 - Cough, unspecified Qualifiers: Cough type: acute Qualified Code(s): R05.1 - Acute cough Plan: As above (3) Diarrhea: Code(s): R19.7 - Diarrhea, unspecified Qualifiers: Diarrhea type: presumed infectious Qualified Code(s): R19.7 - Diarrhea, unspecified Plan: Likely due to viral infection Advised to avoid contaminated food or water Effective hand washing encouraged May take Metamucil 1 tbsp makes in 8 oz of water daily and may increase to 2 tbsp if symptoms persist or worsen Return with new or worsening symptoms Verbalized understanding and agreed with treatment plan. (4) Rhinitis: Code(s): J31.0 - Chronic rhinitis Qualifiers: Allergic rhinitis trigger: unspecified Allergic rhinitis seasonality: unspecified Plan: Reports associated runny nose with green discharge Nasal turbinate with significant erythema, no edema noted Likely viral although allergies as possible There may be superimposed bacterial infection Z-José Antonio ordered. Take as prescribed May take Tylenol ibuprofen for pain or discomfort Follow-up with worsening or new symptoms Verbalized understanding and agreed with treatment plan. Orders: Orders SARS-CoV2/FLU/RSV Today J06.9 - Acute upper respiratory infection, unspecified AMB Rapid Strep Screen Today Z13.9 - Encounter for screening, unspecified Medications: New azithromycin (Zithromax Z-José Antonio) For 250 mg dose pack: take 500 mg today (day 1), then 250 mg for 4 days (days 2-5) PO 6 tabs 0RF Coding Level of Care Code Est Pt Level 3 (87510) Diagnoses Viral upper respiratory illness J06.9 Acute cough R05.1 Cough type: acute Diarrhea of presumed infectious origin R19.7 Diarrhea type: presumed infectious Rhinitis J31.0 Allergic rhinitis trigger: unspecified Allergic rhinitis seasonality: unspecified
[2023-07-04 13:47] VITALS: BP 110/72; PULSE 93; RESP 13; TEMP 36.5; O2SAT 97; BMI 32.7
== END 2023-07-04 14:40 | disposition home or self-care (01) ==
PROVIDERS: PCP Nurse Practitioner Family; Visit Provider Nurse Practitioner Family
DX: J06.9 Acute upper respiratory infection, unspecified (principal); R05.1 Acute cough; R19.7 Diarrhea, unspecified; J02.9 Acute pharyngitis, unspecified; J31.0 Chronic rhinitis
CPT/HCPCS: 87880; 99214

== ENCOUNTER 2023-07-04 14:40 | Outpatient (REF) | payer BC, SELFPAY ==
[2023-07-05 12:58] LABS: Influenza A PCR NEGATIVE (Negative); Influenza B PCR NEGATIVE (Negative); Resp Syncy Virus RNA Qual PCR NEGATIVE (Negative); SARS COV2 PCR INHOUSE NEGATIVE (Negative)
== END 2023-07-04 14:41 | disposition home or self-care (01) ==
LOC: HO.LAB 14:40
PROVIDERS: Visit Provider Nurse Practitioner Family
DX: J06.9 Acute upper respiratory infection, unspecified (principal)
CPT/HCPCS: 0241U

== ENCOUNTER 2023-09-10 09:10 | Outpatient (AMB) | payer BC, SELFPAY ==
[2023-09-10 09:33] VITALS: BP 130/80; PULSE 72; TEMP 36.4; O2SAT 97; BMI 33.6
--- NOTE | 2023-09-10 09:33 | AM.OFFWIN_ITS ---
Intake Vital Signs 09/10/23 09:33 Height 6 ft Weight 112.491 kg BMI 33.6 BP 130/80 Blood Pressure Location Rt brachial Position Sitting Pulse 72 Pulse Source Pulse Oximeter Temp 97.6 F Temp Source Temporal Artery Scan Pulse Oximetry (%) 97 Oxygen Delivery Method Room Air Intake Visit Reasons: EP phlem sinus pain sore throat [id number] Intake Note: pt is here today for sinus pain, sore throat started 1 week ago Patient Tobacco Use Status: Never used Tobacco Allergies No Known Allergies Allergy (Verified 09/10/23 09:34) Do you need a note to return to daycare/school/sports/work: No HPI HPI Comments History of Present Illness Details 28-year-old male presents to the clinic for sick visit patient reporting sinus congestion, fatigue, malaise, myalgias, sore throat for the past 7 days, does not seem to be improving on its own. Patient reports this feels like a typical sinus infection. Reports he had URI that just seemed to worsen. Denies headache, vision changes, dizziness, weakness, chest pain, shortness of breath, fevers, chills, nausea, vomiting, abdominal pain and diarrhea Physical exam benign Likely sinusitis versus viral illness versus pharyngitis. Unlikely epiglottitis, retropharyngeal or peritonsillar abscess, threat to airway, pneumonia, ACS, PE, meningitis or encephalitis Plan will discharge patient home with Augmentin. Educated patient on diagnosis and treatment plan, answered all question, patient verbalizes understanding. At this time patient will be discharged home, advised to return with new or worsening symptoms. Educated on worrisome signs and symptoms and when to return. At this time I feel comfortable discharge home. 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 Oriented X3.? No acute distress.? Head: Normocephalic, atraumatic, no step-offs or deformities Eyes: Pupils equal, round and reactive to light.? Neck: Normal inspection.? Neck supple.? CVS: Normal heart rate and rhythm.? Pulses normal.? Respiratory: No respiratory distress.? Breath sounds normal.? Abdomen: Soft and nontender.? Skin: Skin warm and dry.? Normal skin color.? Normal skin turgor.? Extremities: No lower extremity edema.? No calf ttp. 5/5 strength to bilateral upper and lower extremities Neuro: Oriented X 3.? No motor deficit.? No sensory deficit. CN 2-12 intact Assessment & Plan Assessment & Plan (1) Sinusitis: Code(s): J32.9 - Chronic sinusitis, unspecified Plan Take your medications as prescribed. If you were prescribed antibiotics today, it is important that you take your medication to their entirety, do not skip any doses, do not finish them early. Follow-up with your primary care provider this week. Return to the emergency department with new or worsening symptoms. Such as fevers, chills, chest pain, shortness of breath, nausea, vomiting, dizziness, headache, vision changes, lethargy In case of emergency call 911 Medications: New amoxicillin-pot clavulanate 875-125 mg 1 tab PO BID 10 days 20 tabs 0RF prednisone 20 mg PO DAILY 5 days 5 tabs 0RF Coding Level of Care Code Est Pt Level 3 (69687) Diagnoses Sinusitis J32.9
== END 2023-09-10 10:39 | disposition home or self-care (01) ==
PROVIDERS: PCP Nurse Practitioner Family; Visit Provider Physician Assistant
DX: J32.9 Chronic sinusitis, unspecified (principal)
CPT/HCPCS: 99213

== ENCOUNTER 2023-11-07 09:52 | Outpatient (REF) | payer BC, SELFPAY ==
--- NOTE | ~2023-11-07 | US_ITS ---
EXAMINATION: US SCROTUM CLINICAL INFORMATION: Hydrocele, unspecified. COMPARISON: Scrotal ultrasound 04/16/2023. TECHNIQUE: A sonogram of the scrotum was performed assessing fontana-scale appearance and color Doppler flow. Spectral Doppler analysis of the arterial and venous flow were performed in the testes bilaterally. FINDINGS: RIGHT: Right testicle measures 5.0 x 2.5 x 3.7 cm, volume 23.8 mL. No focal testicular parenchymal lesions are visualized. Spectral Doppler analysis of the arterial and venous flow is normal in the right testis. Right epididymal head is normal in size. A 3 mm right epididymal head cyst versus spermatocele is seen. No right varicocele is seen. Right epididymal Doppler flow is normal. There is a small hydrocele. LEFT: Left testicle measures 5.0 x 2.4 x 3.4 cm, volume 20.7 mL. No focal testicular parenchymal lesions are visualized. Spectral Doppler analysis of the arterial and venous flow is normal in the left testis. Left epididymal head is normal in size. No left varicocele is seen. Left epididymal Doppler flow is normal. There is a small hydrocele. US/US scrotum IMPRESSION: 1. A 3 mm right epididymal head cyst versus spermatocele is seen. 2. There are small bilateral hydroceles. 3. No testicular mass, torsion or varicocele is seen bilaterally.
== END 2023-11-07 09:53 | disposition home or self-care (01) ==
LOC: HO.HMGCX 09:52
PROVIDERS: PCP Nurse Practitioner Family; Visit Provider Nurse Practitioner Family
DX: N43.3 Hydrocele, unspecified (principal)
CPT/HCPCS: 76870

== ENCOUNTER 2023-11-19 09:57 | Outpatient (REF) | payer BC, SELFPAY ==
[2023-11-19 14:16] LABS: TSH reflex Free T4 1.17 uIU/mL (0.32-4.0)
== END 2023-11-19 09:58 | disposition home or self-care (01) ==
LOC: HO.HMGCLDS 09:57
PROVIDERS: PCP Nurse Practitioner Family; Visit Provider Nurse Practitioner Family
DX: E89.0 Postprocedural hypothyroidism (principal)
CPT/HCPCS: 36415; 84443

== ENCOUNTER 2023-11-20 09:31 | Outpatient (AMB) | payer BC, SELFPAY ==
--- NOTE | 2023-11-20 09:39 | A.OFFVIS_ITS ---
Intake Intake Visit Reasons: 6 month u/s(set) Intake Note: Patient presents today for follow up visit benign cyst of testis and ultrasound results Imagin11/07/23 Urology Medications: none Blood Thinner: none Patient stated he feels a little bit better, however he still feel uncomfortable when going to sleep, or when taking a shower. He noticed one testicle far from the other. Product Safety Engineer Required: No Accompanied by: Self / Same As Patient Allergies No Known Allergies Allergy (Verified 11/20/23 22:34) Medication List - Last Reconciled 11/20/23 by SAVANNAH Mederos levothyroxine 150 mcg PO DAILY 90 days HPI HPI Comments History of Present Illness Details Lon is a very pleasant 28-year-old male patient of Dr. Noriega. He has a past medical history of ADD, anxiety, hypothyroidism, and palpitations. He presents to the office today for follow-up of his left-sided hydrocele. Of note, patient was seen approximately 6 months ago at which time reassurance was provided and recommendations were made for p.r.n. follow-up however patient would like to continue with surveillance monitoring. Recent scrotal imaging results reviewed with the patient today. 3 mm right epididymal head cyst versus spermatocele is seen. There are small bilateral hydroceles. No testicular mass, torsion, or varicocele is noted bilaterally. In discussion with the patient today reports to be doing and feeling well. He denies any urinary issues. He reports noting after bathing one testicle sits higher than the other. He otherwise denies pain, nausea, and or vomiting. When asked he denies urinary urgency, urinary frequency, incontinence, nocturia, hematuria, dysuria, foul smelling urine, changes to urinary stream, flank pain, fever, and or chills. He is happy with his current voiding parameters. In office urinalysis results reviewed with the patient today. Patient otherwise offers no other issues or concerns at this time. 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 Cognitive needs: No Hearing needs: No Vision needs: No Review of Systems Const Reports as per HPI Eyes Reports no additional complaints ENT Reports no additional complaints Card Reports as per HPI Resp Reports no additional complaints GI Reports no additional complaints Reports as per HPI Musc Reports no additional complaints Neuro Reports as per HPI Psych Reports as per HPI Endo Reports no additional complaints Physical Exam Const General: cooperative, healthy appearing, comfortable, no acute distress, well developed, alert and awake Orientation/consciousness: patient oriented x3 Limitations: no limitations HEENT Head: Yes normal to inspection, Yes normocephalic and Yes atraumatic Ears: hearing grossly normal bilaterally Eyes General: appearance normal, both eyes and all related structures Neck Neck: Yes normal visual inspection and Yes trachea midline Chest Chest palpation & inspection: normal inspection of the chest Resp Effort & Inspection: normal respiratory effort and able to speak in complete sentences Cardio Rate: regular rate GI Inspection: Yes normal to inspection General: Yes no CVA tenderness Penis: normal penis and circumcised Back/Spine/Pelvis Back: no CVA tenderness Skin General skin exam: no rashes or lesions noted Neuro General: patient oriented x3 Extrem General: Yes normal to inspection Psych Appearance: grossly normal and well kempt Mental Status: mental status grossly normal Speech and movement: Normal speech and movement present and Clear speech present Affect: normal affect Attitude: cooperative Thought process: Normal thought process present Thought content: Normal thought content present Insight: Good insight present (Psych) Judgement: Good judgement present (Psych) Results AMB Urinalysis, Automated UA Leukoctes 0 Michaela/uL Last Edit by Kelsey Patel CMA on 11/20/23 09 :56 UA Nitrite Negative Last Edit by [employer] Patel, [facility] on 11/20/23 09: 56 UA Urobilinogen 0.2 mg/dL Last Edit by Kelsey Patelparveen Patel [facility] on 4 09:56 UA Protein 0 mg/dL Last Edit by Kelsey Patel, [facility] on 11/20/23 09:56 UA pH 6.0 Last Edit by Kelsey Patelparveen Patel, [facility] on 11/20/23 09:56 UA Blood 10 Rigoberto/uL Last Edit by [employer] Pat[employer], [facility] on 11/20/23 09:56 UA Specific [place] 1.015 Last Edit by Kelsey Patel, [facility] on 09:56 UA Ketone Negative Last Edit by Kelsey Patelparveen Patel, [facility] on 11/20/23 09:5 6 UA Bilirubin 0 mg/dL Last Edit by Kelsey Patelparveen Patel, [facility] on 11/20/23 09: 56 UA Glucose 0 mg/dL Last Edit by Kelsey Patelparveen Patel [facility] on 11/20/23 09:56 Results Reviewed Results Reviewed: Laboratory Last Values Urine pH (Auto) 6.0 11/20/23 09:55 Specific [place] (Auto) 1.015 11/20/23 09:55 Urine Protein (Auto) 0 mg/dL 11/20/23 09:55 Glucose (UA)(Auto) 0 mg/dL 11/20/23 09:55 Urine Ketones (Auto) Negative 11/20/23 09:55 Urine Blood (Auto) 10 Rigoberto/uL 11/20/23 09:55 Urine Nitrite (Auto) Negative 11/20/23 09:55 Urine Bilirubin (Auto) 0 mg/dL 11/20/23 09:55 Urine Urobilinogen (Auto) 0.2 mg/dL 11/20/23 09:55 Leukocyte Esterase (Auto) 0 Michaela/uL 11/20/23 09:55 Date of Service: 11/07/23 EXAMINATION: US SCROTUM FINDINGS: RIGHT: Right testicle measures 5.0 x 2.5 x 3.7 cm, volume 23.8 mL. No focal testicular parenchymal lesions are visualized. Spectral Doppler analysis of the arterial and venous flow is normal in the right testis. Right epididymal head is normal in size. A 3 mm right epididymal head cyst versus spermatocele is seen. No right varicocele is seen. Right epididymal Doppler flow is normal. There is a small hydrocele. LEFT: Left testicle measures 5.0 x 2.4 x 3.4 cm, volume 20.7 mL. No focal testicular parenchymal lesions are visualized. Spectral Doppler analysis of the arterial and venous flow is normal in the left testis. Left epididymal head is normal in size. No left varicocele is seen. Left epididymal Doppler flow is normal. There is a small hydrocele. IMPRESSION: 1. A 3 mm right epididymal head cyst versus spermatocele is seen. 2. There are small bilateral hydroceles. 3. No testicular mass, torsion or varicocele is seen bilaterally. Assessment & Plan Assessment & Plan (1) Hydrocele: Code(s): N43.3 - Hydrocele, unspecified Plan In office urinalysis results reviewed with the patient today. Recent scrotal ultrasound results reviewed with the patient today; as noted above. Reassurance provided. Discussed at length potential causes for hydroceles. Discussed surveillance monitoring verses hydrocelectomy; discussed risks and benefits of noted interventions/treatment options All questions were answered Patient reports to be happy with current voiding parameters Discussed follow-up PRN however patient would like to continue with surveillance monitoring with imaging. Scrotal ultrasound in 6 months. Follow-up in 6 months with imaging to be completed prior; or sooner with any issues, concerns, and or questions. Orders: Orders AMB Urinalysis Automated Today R33.9 - Retention of urine, unspecified US scrotum 6 Months N43.3 - Hydrocele, unspecified Patient Instructions: The patient had an opportunity to ask questions regarding the treatment plan. All questions were answered. Physical exam, labs, and imaging were discussed and reviewed in detail. As well as risks, benefits, and discussion of treatment choices. No major barriers to understanding were identified. The patient expre ssed understanding and agreement with the above treatment plan. The patient was made aware they should contact our office by phone for worsening of their current condition, the appearance of new symptoms, or with any questions or concerns. Compliance is encouraged with any medications and follow up testing that is ordered. It is a privilege to be allowed the opportunity to participate in? your urological care.? Again, if you have any questions or concerns If you have any questions or concerns please do not hesitate to contact me. The office is [phone]. This note is constructed using voice recognition software. While every effort has been made to ensure accuracy system operation superintendent errors may have been included. Yours sincerely, SARANYA Mederos-ALTAGRACIA Coding Level of Care Code Est Pt Level 3 (95860) Diagnoses Hydrocele N43.3
== END 2023-11-20 10:07 | disposition home or self-care (01) ==
PROVIDERS: PCP Nurse Practitioner Family; Visit Provider Nurse Practitioner Family
DX: N43.3 Hydrocele, unspecified (principal)
CPT/HCPCS: 99213

== ENCOUNTER → 2023-11-20 09:31 | Outpatient (BNVA) | payer BC, SELFPAY | PROVIDERS: PCP Nurse Practitioner Family; Visit Provider Nurse Practitioner Family | DX: N43.3 Hydrocele, unspecified (principal); R33.9 Retention of urine, unspecified | CPT/HCPCS: 81003 ==

== ENCOUNTER 2023-11-20 12:15 | Outpatient (AMB) | payer BC, SELFPAY ==
--- NOTE | 2023-11-20 12:23 | A.OFFPC_ITS ---
Vital Signs 11/20/23 12:27 Height 6 ft Weight 254 lb BMI 34.4 BP 112/64 Blood Pressure Location Lt brachial Position Sitting Respiration 13 Pulse 86 Pulse Source Pulse Oximeter Pulse Oximetry (%) 97 Oxygen Delivery Method Room Air Intake Visit Reasons: 6 mos hypothyroidism Intake Note: Patient is here for a follow up of his thyroid. Patient reports he is having gastrointestinal concerns. Aerodynamics Professor Required: No Accompanied by: Self / Same As Patient Allergies No Known Allergies Allergy (Verified 11/20/23 12:39) Medication List - Last Reconciled 11/20/23 by Ashish Noriega CNP levothyroxine 150 mcg PO DAILY 90 days Tobacco use date assessed: 04/11/23 HPI HPI Comments History of Present Illness Details 28 y/o male presents for hyothyroidism f ollow up He admits to taking Levothyroxine 150 mcg daily as prescribed Reports bright red rectal bleeding with wiping for about a year. He also reports frequent non-bloody diarrhea, 3-4 times in the morning, for a year. 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 Marcelino Agrawal, Eugenia El, Jerrell Gates and colleagues, with an educational carlos from [employer]. Review of Systems Const Details: Const Denies chills, Denies fatigue, Denies fever(s), Denies headache(s) and Denies weakness ENT Denies dizziness and Denies headache(s) Card Denies chest pain, Denies lightheadedness, Denies dyspnea and Denies other (Palpitations) Resp Denies cough, Denies dyspnea, Denies wheezing and Denies other ( shortness of breath) GI Denies abdominal pain, Denies melena, Denies hematochezia, Denies change in bowel habits, Denies dyspepsia and Denies nausea Denies hematuria and Denies dysuria Musc Denies abnormal gait, Denies myalgias, Denies arthralgias, Denies numbness and Denies tingling Skin/Breast Denies rash, Denies unusual bruising and Denies wounds Neuro Denies abnormal gait, Denies dizziness, Denies headache(s), Denies memory loss, Denies numbness, Denies Sensory deficit (Neuro), Denies tingling and Denies weakness Psych Denies anxiety, Denies depression, Denies memory loss Endo Denies cold intolerance, Denies fatigue, Denies heat intolerance, Denies polydipsia and Denies polyuria Aller/Immun Denies wheezing Physical exam (Primary Care) Vital Signs: Last Vital Signs Pulse 86 11/20/23 12:27 Resp 13 11/20/23 12:27 BP 112/64 11/20/23 12:27 Pulse Ox 97 11/20/23 12:27 Oxygen Delivery Method Room Air 11/20/23 12:27 BMI result Body Mass Index 34.4 Tobacco/Smoking Status: Tobacco use Status Tobacco use date assessed 04/11/23 11/20/23 12:26 Patient Tobacco Use Status Never used Tobacco 11/20/23 12:26 e-Cigarette/Vaping Use Currently Using 11/20/23 12:26 Thrive Assessment: Date of Thrive Assessment Date Thrive assessed 04/11/23 11/20/23 12:26 Const Other: General: no acute distress and well developed Nutritional Appearance: well nourished Orientation/consciousness: patient oriented x3 HENMT Head: Yes normocephalic and Yes atraumatic Eyes General: appearance normal, both eyes and all related structures Pupils: Equal, round and reactive pupils present EOM: EOMs intact bilaterally Resp Effort & Inspection: normal respiratory effort Auscultation: clear to auscultation bilaterally Cardio Rate: regular rate Rhythm: regular rhythm Heart sounds: S1 normal heart sound present, S2 normal heart sound present, no gallops, no murmurs and no rubs GI Palpation (GI): No Abdominal aortic bruit present, Soft to palpation, nontender, No hepatosplenomegaly present and No Rebound tenderness present Auscultation: normal bowel sounds General: Yes no CVA tenderness Back/Spine/Pelvis Back: no CVA tenderness Cervical Spine: cervical ROM normal and No Cervical spine tenderness Thoracic/Lumbar Spine: thoraco-lumbar ROM normal, No pain with thoraco-lumbar ROM, No thoracic spinal tenderness and No lumbar spinal tenderness Extrem General: Yes normal to inspection, No edema and No calf tenderness Skin General: warm and dry. Normal skin color. Normal skin turgor Neuro General: patient oriented x3, gait normal and no focal neuro deficit Cranial nerves: Yes Equal, round and reactive pupils present Cognition (Neuro): normal cognition Gait exam (Neuro): Normal gait present Sensory Exam: No Sensory deficit (Neuro) Psych Appearance: grossly normal Affect: normal affect Attitude: cooperative Thought process: Normal thought process present Results AMB Urinalysis, Automated UA Leukoctes 0 Michaela/uL Last Edit by Kelsey Patel CMA on 11/20/23 09 :56 UA Nitrite Negative Last Edit by Kelsey Patel CMA on 11/20/23 09: 56 UA Urobilinogen 0.2 mg/dL Last Edit by Kelsey Patel CMA on 4 09:56 UA Protein 0 mg/dL Last Edit by Kelsey Patel CMA on 11/20/23 09:56 UA pH 6.0 Last Edit by Kelsey Patel CMA on 11/20/23 09:56 UA Blood 10 Rigoberto/uL Last Edit by Kelsey Patel CMA on 11/20/23 09:56 UA Specific [place] 1.015 Last Edit by Kelsey Patel CMA on 09:56 UA Ketone Negative Last Edit by Kelsey Patel CMA on 11/20/23 09:5 6 UA Bilirubin 0 mg/dL Last Edit by Kelsey Patel CMA on 11/20/23 09: 56 UA Glucose 0 mg/dL Last Edit by Kelsey Patel CMA on 11/20/23 09:56 Assessment and Plan Assessment & Plan (1) Postablative hypothyroidism: Code(s): E89.0 - Postprocedural hypothyroidism Plan: Recent TSh level is normal Continue current treatment Advised to get routine fasting labs done before his next visit Follow up in 6 months for an extended physical exam Return sooner with symptoms or concerns Verbalized understanding and agreed with the plan (2) Rectal bleeding: Code(s): K62.5 - Hemorrhage of anus and rectum Plan: Reports bright red rectal bleeding with wiping and frequent non-bloody diarrhea for the past 1 year He has been doing sitz baths without improvement Bleeding is likely caused by external hemorrhoids May use hemorrhoidal cream as needed May continue sitz baths Referred to Gastroenterology Follow-up with worsening or new symptoms Verbalized understanding and agreed with treatment plan (3) Diarrhea: Code(s): R19.7 - Diarrhea, unspecified Qualifiers: Diarrhea type: presumed infectious Qualified Code(s): R19.7 - Diarrhea, unspecified Plan: As above (4) Laboratory tests ordered as part of a complete physical exam (CPE): Code(s): Z00.00 - Encounter for general adult medical examination without abnormal findings Plan: Fasting labs ordered in preparation for a complete physical exam. Advised to fast for at least 10 hours before getting labs drawn. May drink water Verbalized understanding and agreed with treatment plan. Orders: Orders Comprehensive Java. Panel Fast 6 Months Z00.00 - Encounter for general adult medical examination without abnormal findings Complete Blood Count Auto Diff 6 Months Z00.00 - Encounter for general adult medical examination without abnormal findings Lipid Panel 6 Months Z00.00 - Encounter for general adult medical examination without abnormal findings TSH reflex Free T4 6 Months Z00.00 - Encounter for general adult medical examination without abnormal findings UA CC w/rflx Micro + Cult 6 Months Z00.00 - Encounter for general adult medical examination without abnormal findings Referrals Gastroenterology Referral K62.5 - Hemorrhage of anus and rectum, R19.7 - D iarrhea, unspecified Coding Level of Care Code Est Pt Level 4 (80056) Diagnoses Postablative hypothyroidism E89.0 Rectal bleeding K62.5 Diarrhea of presumed infectious origin R19.7 Diarrhea type: presumed infectious Laboratory tests ordered as part of a complete physical exam (CPE) Z00.00
[2023-11-20 12:27] VITALS: BP 112/64; PULSE 86; RESP 13; O2SAT 97; BMI 34.4
== END 2023-11-20 12:58 | disposition home or self-care (01) ==
PROVIDERS: PCP Nurse Practitioner Family; Visit Provider Nurse Practitioner Family
DX: E89.0 Postprocedural hypothyroidism (principal); K62.5 Hemorrhage of anus and rectum; R19.7 Diarrhea, unspecified; Z00.00 Encounter for general adult medical examination without abnormal findings
CPT/HCPCS: 99214

== ENCOUNTER 2023-11-27 11:44 | Outpatient (AMB) | payer BC, SELFPAY ==
[2023-11-27 12:34] VITALS: BP 120/86; PULSE 87; TEMP 36.4; O2SAT 96; BMI 34.0
--- NOTE | 2023-11-27 12:34 | AM.OFFWIN_ITS ---
Intake Vital Signs 11/27/23 12:34 Height 6 ft Weight 251 lb BMI 34.0 BP 120/86 Blood Pressure Location Lt brachial Position Sitting Pulse 87 Pulse Source Pulse Oximeter Temp 97.5 F Temp Source Temporal Artery Scan Pulse Oximetry (%) 96 Oxygen Delivery Method Room Air Intake Visit Reasons: EP sore throat headache congestion [id number] Intake Note: pt is here today for ore throat headache congestion started 1 week ago Patient Tobacco Use Status: Never used Tobacco Allergies No Known Allergies Allergy (Verified 11/29/23 06:54) Medication List - Last Reconciled 11/29/23 by Torres Nova MD azithromycin take 500 mg today (day 1), then 250 mg for 4 days (days 2-5) PO levothyroxine 150 mcg PO DAILY 90 days Do you need a note to return to daycare/school/sports/work: No HPI EP sore throat headache congestion [id number] HPI Details 28 yr old male presents to the office fo r a sick visit. He is reporting sx of congestion, headaches and sore throat for the past few days. No fever or chills. 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 Pt is frustrated as he is having frequent URI. He has been sick 5-6 times in the past 6 months. He has been on abx atleast thrice. Sx subside and then recur. 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 Cognitive needs: No Hearing needs: No Vision needs: No Physical Exam Vital Signs: Last Vital Signs Temp 97.5 F 03/05/24 12:34 Pulse 87 11/27/23 12:34 BP 120/86 11/27/23 12:34 Pulse Ox 96 11/27/23 12:34 Oxygen Delivery Method Room Air 11/27/23 12:34 BMI result Body Mass Index 34.0 Const General: cooperative and healthy appearing Nutritional Appearance: well nourished Orientation/consciousness: patient oriented x3 Limitations: no limitations HEENT Head: Yes normal to inspection Eyes General: appearance normal, both eyes and all related structures Neck Neck: Yes normal visual inspection Chest Chest palpation & inspection: normal palpation of entire chest wall Resp Effort & Inspection: normal respiratory effort Neuro General: patient oriented x3 Results AMB Rapid Strep AMB Rapid Strep Negative Last Edit by Joey Josue on 11/27/23 13:00 Results Reviewed Results Reviewed: Laboratory Last Values Strep Scn Rapid Clinic Negative 11/27/23 12:59 Assessment & Plan Assessment & Plan (1) Cough: Code(s): R05.9 - Cough, unspecified Qualifiers: Cough type: acute Qualified Code(s): R05.1 - Acute cough Plan: Frequent URI. Blood work has been ordered. He should follow up with PCP if his sx persist. Chronic allergies should be considered. Orders: Orders Lipid Panel 11/27/23 R05.9 - Cough, unspecified Liver Panel 11/27/23 R05.9 - Cough, unspecified Thyroid Stimulating Hormone 11/27/23 R05.9 - Cough, unspecified Complete Blood Count no Diff 11/27/23 R05.9 - Cough, unspecified Basic Metabolic Panel 11/27/23 R05.9 - Cough, unspecified Erythrocyte Sedimentation Rate 11/27/23 R05.9 - Cough, unspecified Medications: New azithromycin take 500 mg today (day 1), then 250 mg for 4 days (days 2-5) PO 6 tabs 0RF Coding Level of Care Code Est Pt Level 3 (29790) Diagnoses Acute cough R05.1 Cough type: acute
== END 2023-11-27 13:47 | disposition home or self-care (01) ==
PROVIDERS: PCP Nurse Practitioner Family; Visit Provider Internal Medicine
DX: R05.1 Acute cough (principal)
CPT/HCPCS: 99213

== ENCOUNTER 2023-11-27 13:01 | Outpatient (REF) | payer BC, SELFPAY ==
[2023-11-27 16:22] LABS: Hematocrit 46.4 % (42.0-52.0); Hemoglobin 15.5 g/dl (14.0-18.0); Mean Corpuscular HGB Conc 33.4 g/dl (31.0-36.0); Mean Corpuscular Hemoglobin 27.1 pg (27.0-33.0); Mean Corpuscular Volume 81.3 fL (80.0-98.0); Mean Platelet Volume 9.4 fL (9.4-12.4); Platelet Count 252 X10*3/uL (160-400); Red Blood Count 5.71 X10*6/uL (4.60-5.80); Red Cell Distribution Width 12.3 % (11.0-16.0); White Blood Count 6.1 X10*3/uL (4.8-10.8)
[2023-11-27 17:07] LABS: Erythrocyte Sedimentation Rate 12 MM/HR (0-15)
[2023-11-27 17:11] LABS: Alanine Aminotransferase 58 U/L (0-40); Albumin Level 4.8 g/dL (3.5-5.0); Alkaline Phosphatase 62 U/L (39-117); Anion Gap 14 (12-20); Aspartate Amino Transferase 25 U/L (5-37); Bilirubin Direct 0.2 mg/dL (0.0-0.5); Bilirubin Total 0.7 mg/dL (0.0-1.0); Blood Urea Nitrogen 12 mg/dL (9-16); Calcium 10.2 mg/dL (8.4-10.2); Carbon Dioxide 29 mmol/L (22-29); Chloride 102 mmol/L (96-108); Cholesterol 154 mg/dL (<200); Estimated Glomerular Filt Rate > 60; Glucose Random 85 mg/dL (60-115); HDL Cholesterol 41 mg/dL (>40); LDL Cholesterol Calculated 70 mg/dL (<100); Potassium 4.5 mmol/L (3.3-5.1); Sodium 140 mmol/L (135-145); Triglycerides 216 mg/dL (<150)
[2023-11-27 17:19] LABS: Thyroid Stimulating Hormone 3.05 uIU/mL (0.32-4.0)
== END 2023-11-27 13:02 | disposition home or self-care (01) ==
LOC: HO.HMGCLDS 13:01
PROVIDERS: PCP Nurse Practitioner Family; Visit Provider Internal Medicine
DX: Z13.6 Encounter for screening for cardiovascular disorders (principal); R05.9 Cough, unspecified
CPT/HCPCS: 36415; 80048; 80061; 80076; 84443; 85027; 85652

== ENCOUNTER 2023-12-18 07:56 | Outpatient (REF) | payer BC, SELFPAY ==
[2023-12-18 09:47] LABS: C Reactive Protein 0.15 mg/dL (< or = 0.50); Lipase 43 U/L (8-78)
[2023-12-18 11:51] LABS: Folate 8.1 ng/mL (> or = 4.0); Vitamin B12 456 pg/mL (200-900)
[2023-12-22 15:14] LABS: Vitamin D 25-OH, D2 <4 ng/mL; Vitamin D 25-OH, D3 20 ng/mL; Vitamin D 25-OH, Total 20 ng/mL (30-100)
[2023-12-24 14:03] LABS: Transglutaminase Ab IgG 1.2 U/mL; Transglutaminase IgA <1.0 U/mL
== END 2023-12-18 07:57 | disposition home or self-care (01) ==
LOC: HO.LAB 07:56
PROVIDERS: PCP Nurse Practitioner Family; Visit Provider Nurse Practitioner Family
DX: R19.7 Diarrhea, unspecified (principal); K58.9 Irritable bowel syndrome, unspecified; K62.5 Hemorrhage of anus and rectum; R14.0 Abdominal distension (gaseous)
CPT/HCPCS: 36415; 82306; 82607; 82746; 83690; 86140; 86364

== ENCOUNTER 2023-12-18 07:56 | Outpatient (AMB) | payer BC, SELFPAY ==
--- NOTE | 2023-12-18 08:00 | MHC.OFFVIS ---
Intake Vital Signs 12/18/23 08:02 Height 6 ft Weight 251 lb 5.231 oz BMI 34.1 BP 133/79 Blood Pressure Location Lt brachial Position Sitting Pulse 68 Intake Visit Reasons: Hemorrhage of anus and rectum, Diarrhea Intake Note: Lon presents in the office as a new patient today for hemorrhage of anus and rectum. CC: HE states that bleeding comes and goes. He believes it could be hemorrhoids. Diarrhea all the time no constipation No pains in the stomach. Allergies No Known Allergies Allergy (Verified 12/18/23 08:02) HPI Hemorrhage of anus and rectum, Diarrhea HPI Details 28-year-old male with past medical history anxiety, ADD, depression, hypothyroidism, high do feel is here today for initial consultation. Patient was sent to us by his PCP. Patient is presenting symptoms postprandial diarrhea, abdominal bloating and frequent blood in the stool. Patient reports that he was diagnosed with hemorrhoids long time ago. His symptoms have been going on for sometimes. However he admits that symptoms got worse when he moved here to [place] from [place]. 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 Patient reports that one of his sisters was diagnosed with Crohn's and other sister had polyps. He was told that he should get a colonoscopy. Patient was never worked up for IBD. Patient does admit that certain food will make him feel worse with bloating and diarrhea afterwards. Patient denies any cramps or any abdominal discomfort when he has loose stools. Patient states that he tried probiotic in the past and feels like his symptoms got better. Patient tried MiraLax and she will fiber and his symptoms got worse. Patient denies any nausea or vomiting. Denies any fever or chills. Patient denies dyspepsia, dysphagia or odynophagia. 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 Cognitive needs: No Hearing needs: No Vision needs: No Review of Systems Const Denies weight gain and Denies weight loss ENT Reports no additional complaints, Denies dysphagia and Denies odynophagia Card Reports no additional complaints Resp Reports no additional complaints GI Denies abdominal pain, Denies belching, Denies melena, Denies bloating, Denies change in bowel habits, Denies dysphagia, Denies excessive flatus, Denies dyspepsia, Denies heartburn, Denies diarrhea, Reports loose stools, Denies nausea, Denies odynophagia and Denies vomiting Reports no additional complaints Musc Reports no additional complaints Neuro Reports no additional complaints Psych Reports no additional complaints Endo Reports no additional complaints Physical Exam Vital Signs: Last Vital Signs Pulse 68 12/18/23 08:02 BP 133/79 12/18/23 08:02 BMI result Body Mass Index 34.1 Const General: healthy appearing, no acute distress and well developed Nutritional Appearance: well nourished Orientation/consciousness: patient oriented x3 Resp Effort & Inspection: normal respiratory effort, able to speak in complete sentences, no tracheal deviation and symmetric chest movement Auscultation: clear to auscultation bilaterally Cardio Rate: regular rate GI Inspection: Yes normal to inspection, No distended and Yes obesity Palpation (GI): Soft to palpation, not firm, nontender and No hepatosplenomegaly present Auscultation: normal bowel sounds General: Yes no CVA tenderness Back/Spine/Pelvis Back: no CVA tenderness Skin General skin exam: elasticity normal, turgor normal and dry skin Neuro General: patient oriented x3 Psych Appearance: grossly normal Mental Status: mental status grossly normal Assessment & Plan Assessment & Plan (1) Rectal bleeding: Code(s): K62.5 - Hemorrhage of anus and rectum (2) Diarrhea: Code(s): R19.7 - Diarrhea, unspecified Qualifiers: Diarrhea type: presumed infectious Qualified Code(s): R19.7 - Diarrhea, unspecified (3) Postprandial abdominal bloating: Code(s): R14.0 - Abdominal distension (gaseous) (4) IBS (irritable bowel syndrome): Code(s): K58.9 - Irritable bowel syndrome without diarrhea Qualifiers: Irritable bowel syndrome type: with both diarrhea and constipation Qualified Code(s): K58.2 - Mixed irritable bowel syndrome Plan Family history of Crohn's will do IBD workup with CRP and fecal calprotectin. Will check vitamin B12, folate vitamin-D level. Will order transglutaminase even though patient does not report any postprandial abdominal pain. Will rule out pancreatic insufficiency, patient complains of postprandial abdominal bloating and loose stools. Will check lipase. I will see patient in 4 months, sooner on as needed basis. We might discuss patient going for possible colonoscopy if his symptoms still continue. Patient will start fiber therapy twice a day and will take senna in the evening if no bowel movement for 1-2 days. Most likely his symptoms are related to IBS. Patient will return in 4 months, sooner on as needed basis. Patient is agreeable to this plan and verbalizes. He was given the opportunity to ask questions and all questions answered. Thank you for allowing me to participate in his care Orders: Orders Transglutaminase Ab IgG Today R19.7 - Diarrhea, unspecified Transglutaminase IgA Today R19.7 - Diarrhea, unspecified Vitamin B12 and Folate Today R19.7 - Diarrhea, unspecified Vitamin D 25-OH (D2 and D3) Today R19.7 - Diarrhea, unspecified Calprotectin, Fecal Today R19.7 - Diarrhea, unspecified C Reactive Protein Today K58.9 - Irritable bowel syndrome without diarrhea Pancreatic Elastase-1 Today R10.9 - Unspecified abdominal pain Lipase Today R19.7 - Diarrhea, unspecified Medications: New sennosides (Natural Senna Laxative) 17.2 mg (2 x 8.6 mg) PO BEDTIME 60 tabs 1RF constipation K59.00 - Constipation, unspecified hydrocortisone 2.5% (Proctosol HC) 1 appl CO BID-QID PRN 30 grams 0RF hemorrhoids methylcellulose (laxative) (Citrucel) take it with full glass of water 500 mg PO BID 60 tabs 4RF K59.00 - Constipation, unspecified Coding Level of Care Code New Pt Level 4 (55551) Diagnoses Rectal bleeding K62.5 Diarrhea of presumed infectious origin R19.7 Diarrhea type: presumed infectious Postprandial abdominal bloating R14.0 Irritable bowel syndrome with both constipation and diarrhea K58.2 Irritable bowel syndrome type: with both diarrhea and constipation Time Spent (min) 45 Comment 30 minutes spent with patient and additional 15 minutes spent reviewing his records
[2023-12-18 08:02] VITALS: BP 133/79; PULSE 68; BMI 34.1
== END 2023-12-18 08:38 | disposition home or self-care (01) ==
PROVIDERS: PCP Nurse Practitioner Family; Visit Provider Nurse Practitioner Family
DX: K62.5 Hemorrhage of anus and rectum (principal); R19.7 Diarrhea, unspecified; R14.0 Abdominal distension (gaseous); K58.2 Mixed irritable bowel syndrome
CPT/HCPCS: 99204

== ENCOUNTER 2024-01-01 09:48 | Outpatient (REF) | payer BC, SELFPAY ==
[2024-01-06 23:58] LABS: Calprotectin, Fecal 5 mcg/g
[2024-01-07 22:39] LABS: Pancreatic Elastase-1 389 mcg/g
== END 2024-01-01 09:49 | disposition home or self-care (01) ==
LOC: HO.LNP 09:48
PROVIDERS: Visit Provider Nurse Practitioner Family
DX: R10.9 Unspecified abdominal pain (principal); R19.7 Diarrhea, unspecified
CPT/HCPCS: 82656; 83993

== ENCOUNTER 2024-05-09 15:42 | Outpatient (REF) | payer BC, SELFPAY ==
--- NOTE | ~2024-05-09 | US_ITS ---
EXAMINATION: US SCROTUM CLINICAL INFORMATION: Hydrocele, unspecified. COMPARISON: Ultrasound scrotum 11/07/2023. TECHNIQUE: A sonogram of the scrotum was performed assessing fontana-scale appearance and color Doppler flow. Spectral Doppler analysis of the arterial and venous flow were performed in the testes bilaterally. FINDINGS: RIGHT: Right testicle measures 4.9 x 2.2 x 3.3 cm, volume 18.7 mL. No focal testicular parenchymal lesions are visualized. Spectral Doppler analysis of the arterial and venous flow is normal in the right testis. Right epididymal head is normal in size. No right varicocele is seen. Small 4 mm epididymal head cyst previously 3 mm. A new 5 mm avascular multiseptated right epididymal head cyst without internal vascularity, recommend 3-6 month follow-up ultrasound. Right epididymal Doppler flow is normal. Trace fluid within the scrotal sac favored to be within physiologic limits for volume. No dominga hydrocele. LEFT: Left testicle measures 4.9 x 2.4 x 3.2 cm, volume 19.8 mL. No focal testicular parenchymal lesions are visualized. Spectral Doppler analysis of the arterial and venous flow is normal in the left testis. Left epididymal head is remarkable for an appendix epididymis. No left varicocele is seen. Left epididymal Doppler flow is normal. Trace fluid within the scrotal sac favored to be within physiologic limits for volume. No dominga hydrocele. US/US scrotum IMPRESSION: 1. A new 5 mm avascular multiseptated right epididymal head cyst without internal vascularity, recommend 3-6 month follow-up ultrasound given the multiplicity of septations to ensure no developing worrisome solid component. 2. A small 4 mm right epididymal head cyst previously 3 mm. 3. Trace fluid within the scrotal sac favored to be within physiologic limits for volume. No dominga hydrocele. Electronically signed by: Ashley Bruce MD 06/02/2024 06:48 PM EDT
== END 2024-05-09 15:43 | disposition home or self-care (01) ==
LOC: HO.US 15:42
PROVIDERS: PCP Nurse Practitioner Family; Visit Provider Nurse Practitioner Family
DX: N43.3 Hydrocele, unspecified (principal)
CPT/HCPCS: 76870

== ENCOUNTER 2024-05-28 09:42 | Outpatient (AMB) | payer BC, SELFPAY ==
--- NOTE | 2024-05-28 09:48 | A.OFFVIS_ITS ---
Intake Visit Reasons: 6m/US(set) Intake Note: Patient presents today for follow up visit on: hydrocele and ultrasound results Imaging Completed: 05/09/24 Urology Medications: none Blood Thinner: none Commissioner Of Officials Required: No Accompanied by: Self / Same As Patient Allergies No Known Allergies Allergy (Verified 05/28/24 10:57) Medication List - Last Reconciled 05/28/24 by SARANYA Mederos- bisacodyl (Dulcolax (bisacodyl)) 20 mg (4 x 5 mg) PO ONCE 1 day bisacodyl (Dulcolax (bisacodyl)) 20 mg (4 x 5 mg) PO ONCE 1 day cholecalciferol (vitamin D3) 50 mcg PO DAILY hydrocortisone 2.5% (Proctosol HC) 1 appl NM BID-QID PRN levothyroxine 150 mcg PO DAILY 90 days methylcellulose (laxative) (Citrucel) 500 mg PO BID polyethylene glycol 3350 (Miralax) 238 grams PO ONCE polyethylene glycol 3350 (Miralax) 238 grams PO ONCE 1 day sennosides (Natural Senna Laxative) 17.2 mg (2 x 8.6 mg) PO BEDTIME HPI Comments Details: Lon is a very pleasant 29-year-old male patient of Dr. Noriega. He has a past medical history of ADD, anxiety, hypothyroidism, and palpitations. He presents to the office today for follow-up of his left-sided hydrocele. Of note, patient was seen approximately 6 months ago at which time reassurance was provided and recommendations were made for p.r.n. follow-up however patient would like to continue with surveillance monitoring. Recent scrotal imaging results reviewed with the patient today. 3 mm-4mm right epididymal head cyst. Trace fluid within the scrotal sac. New 5 mm avascular multi septated right epididymal head cyst without internal vascularity recommend follow-up ultrasound given septation to ensure no developing worrisome solid component. On exam today very small bilateral hydroceles palpated. Otherwise no open areas, lesions, or drainage noted to the penis and or scrotum. In discussion with the patient today reports to be doing and feeling well. He reports noting intermittent episodes of discomfort at the end of the day. He denies any urinary issues. He reports noting after bathing one testicle sits higher than the other. He otherwise denies pain, nausea, and or vomiting. When asked he denies urinary urgency, urinary frequency, incontinence, nocturia, hematuria, dysuria, foul smelling urine, changes to urinary stream, flank pain, fever, and or chills. He is happy with his current voiding parameters. In office urinalysis results reviewed with the patient today. Patient otherwise offers no other issues or concerns at this time. 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 Cognitive needs: No Hearing needs: No Vision needs: No Review of Systems Const Reports as per HPI Eyes Reports no additional complaints ENT Reports no additional complaints Card Reports as per HPI Resp Reports no additional complaints GI Reports no additional complaints Reports as per HPI Musc Reports no additional complaints Neuro Reports as per HPI Psych Reports as per HPI Endo Reports no additional complaints Physical Exam Const General: cooperative, healthy appearing, comfortable, no acute distress, well developed, alert and awake Orientation/consciousness: patient oriented x3 Limitations: no limitations HEENT Head: Yes normal to inspection, Yes normocephalic and Yes atraumatic Ears: hearing grossly normal bilaterally Eyes General: appearance normal, both eyes and all related structures Neck Neck: Yes normal visual inspection and Yes trachea midline Chest Chest palpation & inspection: normal inspection of the chest Resp Effort & Inspection: normal respiratory effort and able to speak in complete sentences Cardio Rate: regular rate GI Inspection: Yes normal to inspection General: Yes no CVA tenderness Penis: normal penis and circumcised Back/Spine/Pelvis Back: no CVA tenderness Skin General skin exam: no rashes or lesions noted Neuro General: patient oriented x3 Extrem General: Yes normal to inspection Psych Appearance: grossly normal and well kempt Mental Status: mental status grossly normal Speech and movement: Normal speech and movement present and Clear speech present Affect: normal affect Attitude: cooperative Thought process: Normal thought process present Thought content: Normal thought content present Insight: Good insight present (Psych) Judgement: Good judgement present (Psych) Results AMB Urinalysis, Automated UA Leukoctes 0 Michaela/uL Last Edit by Juany Gandhi on 05/28/24 09:59 UA Nitrite Last Edit by Juany Gandhi on 05/28/24 09:59 UA Urobilinogen 0.2 mg/dL Last Edit by Juany Gandhi on 05/28/24 09:59 UA Protein 0 mg/dL Last Edit by Altius Educationyung Gandhi on 05/28/24 09:59 UA pH 6.0 Last Edit by Juany Gandhi on 05/28/24 09:59 UA Blood 10 Rigoberto/uL Last Edit by Juany Gandhi on 05/28/24 09:59 UA Specific [place] 1.020 Last Edit by Juany Gandhi on 05/28/24 09:59 UA Ketone Last Edit by Juany Gandhi on 05/28/24 09:59 UA Bilirubin 0 mg/dL Last Edit by Juany Gandhi on 05/28/24 09:59 UA Glucose 0 mg/dL Last Edit by Juany Gandhi on 05/28/24 09:59 Results Reviewed Results Reviewed: Laboratory Last Values Urine pH (Auto) 6.0 05/28/24 09:57 Specific [place] (Auto) 1.020 05/28/24 09:57 Urine Protein (Auto) 0 mg/dL 05/28/24 09:57 Glucose (UA)(Auto) 0 mg/dL 05/28/24 09:57 Urine Blood (Auto) 10 Rigoberto/uL 05/28/24 09:57 Urine Bilirubin (Auto) 0 mg/dL 05/28/24 09:57 Urine Urobilinogen (Auto) 0.2 mg/dL 05/28/24 09:57 Leukocyte Esterase (Auto) 0 Michaela/uL 05/28/24 09:57 Date of Service: 05/09/24 EXAMINATION: US SCROTUM FINDINGS: RIGHT: Right testicle measures 4.9 x 2.2 x 3.3 cm, volume 18.7 mL. No focal testicular parenchymal lesions are visualized. Spectral Doppler analysis of the arterial and venous flow is normal in the right testis. Right epididymal head is normal in size. No right varicocele is seen. Small 4 mm epididymal head cyst previously 3 mm. A new 5 mm avascular multiseptated right epididymal head cyst without internal vascularity, recommend 3-6 month follow-up ultrasound. Right epididymal Doppler flow is normal. Trace fluid within the scrotal sac favored to be within physiologic limits for volume. No dominga hydrocele. LEFT: Left testicle measures 4.9 x 2.4 x 3.2 cm, volume 19.8 mL. No focal testicular parenchymal lesions are visualized. Spectral Doppler analysis of the arterial and venous flow is normal in the left testis. Left epididymal head is remarkable for an appendix epididymis. No left varicocele is seen. Left epididymal Doppler flow is normal. Trace fluid within the scrotal sac favored to be within physiologic limits for volume. No dominga hydrocele. IMPRESSION: 1. A new 5 mm avascular multiseptated right epididymal head cyst without internal vascularity, recommend 3-6 month follow-up ultrasound given the multiplicity of septations to ensure no developing worrisome solid component. 2. A small 4 mm right epididymal head cyst previously 3 mm. 3. Trace fluid within the scrotal sac favored to be within physiologic limits for volume. No dominga hydrocele. Assessment & Plan Assessment & Plan (1) Hydrocele: Code(s): N43.3 - Hydrocele, unspecified Category: Medical Plan In office urinalysis results reviewed with the patient today. Recent scrotal ultrasound results reviewed with the patient today; as noted above. Reassurance provided. Discussed at length potential causes for hydroceles and epididymal head cysts. Discussed surveillance monitoring verses hydrocelectomy; discussed risks and benefits of noted interventions/treatment options. All questions were answered Patient reports to be happy with current voiding parameters Discussed follow-up PRN however patient would like to continue with surveillance monitoring with imaging. Scrotal ultrasound in 6 months. Follow-up in 6 months with imaging to be completed prior; or sooner with any issues, concerns, and or questions. Orders: Orders AMB Urinalysis Automated 05/28/24 Z13.9 - Encounter for screening, unspecified US scrotum 6 Months N50.3 - Cyst of epididymis Medications: Discontinued polyethylene glycol 3350 (Miralax) As directed by gastroenterology department at [facility] Discontinued Reason: Duplicate 238 grams PO ONCE 238 grams 0RF Z12.11 - Encounter for screening for malignant neoplasm of colon bisacodyl (Dulcolax (bisacodyl)) take 4 tabs at noon the day before your colonoscopy Discontinued Reason: Duplicate 20 mg (4 x 5 mg) PO ONCE 1 day 4 tabs 0RF constipation Z12.11 - Encounter for screening for malignant neoplasm of colon Patient Instructions: The patient had an opportunity to ask questions regarding the treatment plan. All questions were answered. Physical exam, labs, and imaging were discussed and reviewed in detail. As well as risks, benefits, and discussion of treatment choices. No major barriers to understanding were identified. The patient expressed understanding and agreement with the above treatment plan. The patient was made aware they should contact our office by phone for worsening of their current condition, the appearance of new symptoms, or with any questions or concerns. Compliance is encouraged with any medications and follow up testing that is ordered. It is a privilege to be allowed the opportunity to participate in? your urological care.? Again, if you have any questions or concerns If you have any questions or concerns please do not hesitate to contact me. The office is [phone]. This note is constructed using voice recognition software. While every effort has been made to ensure accuracy experimental preflight mechanic errors may have been included. Yours sincerely, SAVANNAH Mederos Coding Level of Care Code Est Pt Level 3 (82641) Diagnoses Hydrocele N43.3
== END 2024-05-28 10:56 | disposition home or self-care (01) ==
PROVIDERS: PCP Nurse Practitioner Family; Visit Provider Nurse Practitioner Family
DX: N43.3 Hydrocele, unspecified (principal)
CPT/HCPCS: 99213

== ENCOUNTER → 2024-05-28 09:42 | Outpatient (BNVA) | payer BC, SELFPAY | PROVIDERS: PCP Nurse Practitioner Family; Visit Provider Nurse Practitioner Family | DX: N43.3 Hydrocele, unspecified (principal) | CPT/HCPCS: 81003 ==

== ENCOUNTER 2024-06-03 07:52 | Outpatient (AMB) | payer BC, SELFPAY ==
--- NOTE | 2024-06-03 07:58 | A.OFFPC_ITS ---
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 [employer] Required: No Allergies No Known Allergies Allergy (Verified 06/03/24 08:16) Medication List - Last Reconciled 06/03/24 by Ashish Noriega CNP bisacodyl (Dulcolax (bisacodyl)) 20 mg (4 x 5 mg) PO ONCE 1 day cholecalciferol (vitamin D3) 50 mcg PO DAILY levothyroxine 150 mcg PO DAILY 90 days polyethylene glycol 3350 (Miralax) 238 grams PO ONCE 1 day Tobacco use date assessed: 06/03/24 Dental Screening Dental Screen Date: 06/03/24 Did you have a dental visit in the last 12 months?: Yes Did you have a dental problem in the last 6 months where you did not have access to dental care?: No Was dental information given to patient?: Patient has dentist HPI HPI Comments History of Present Illness Details 29-year-old male presents for an extende d physical exam He has past medical history significant for ADHD, anxiety, hypothyroidism, palpitations, hypertriglyceridemia, vitamin-D deficiency, obesity, and left- sided hydrocele He admits to taking his medications as prescribed without adverse reactions He reports stable mood and controlled ADHD symptoms He notes that he has not been eating healthy in the past 3 months. He admits to doing routine physical exercise. He generally sleeps well. He offers no complaints and denies acute symptoms at this time Nonsmoker. Drinks alcohol 2-3 glass of wine/cocktail or a mug of beer twice monthly. Vapes cannabis occasionally She is followed by [facility] urology [facility] Medical History Male circumcision Hypothyroid Anxiety ADD (attention deficit disorder) Heart palpitations Irregular heart beat Surgical History History of placement of ear tubes [place] teeth extracted Family History Father Thyroid disease Mother Thyroid disease Lymphoma Melanoma Breast cancer Social History Housing: Condominium Patient Tobacco Use Status: Never used Tobacco e-Cigarette/Vaping Use: Currently Using Second Hand Smoke Exposure: No service: No Current occupational status: employed Current occupation: [employer] Current occupational exposures/hazards: Yes Cognitive needs: No Hearing needs: No Vision needs: No Questionnaire PHQ-9 Over the last 2 weeks, how often have you been bothered by any of the following problems? 1. Little interest or pleasure in doing things: not at all 2. Feeling down, depressed, or hopeless: several days 3. Trouble falling or staying asleep, or sleeping too much: several days 4. Feeling tired or having little energy: not at all 5. Poor appetite or overeating: more than half the days 6. Feeling bad about yourself - or that you are a failure or have let yourself or your family down: several days 7. Trouble concentrating on things, such as reading the newspaper or watching television: several days 8. Moving or speaking so slowly that other people could have noticed. Or the op posite - being so fidgety or restless that you have been moving around a lot more than usual: several days 9. Thoughts that you would be better off or of hurting yourself in some way: not at all Total score: 7 Depression Screening Interpretation: Positive Depression Screening Follow-up: Existing condition Depression Screening Done: Yes 44001 - PHQ-9 Billing: Yes Source: Developed by Drs. Marcelino Agrawal, Eugenia El, Jerrell Gates and colleagues, with an educational carlos from [employer]. Thrive Questionnaire Date Thrive assessed: 06/03/24 I am a: Patient What is your living situation today?: I have a steady place to live Within the past 12 months, did the food you bought not last and you didn't have the money to get more?: Never true Within the past 12 months, did you worry whether your food would run out before you got money to buy more?: Never true Do you have trouble paying for medicines?: No Do you have trouble getting transportation to medical appointments?: No Do you have trouble paying your heating and electricity bill?: No Do you have trouble taking care of your child, family member or friend?: No Do you have trouble with day-to-day activities such as bathing, preparing meals, shopping, managing finances, etc.?: No Are you currently unemployed and looking for a job?: No Are you interested in more education?: No Please select the resources that you would like help with: None Currently or been in a relationship where the following occur: No concerns reported THRIVE Score: 0 AUDIT C Alcohol Use Questionnaire (AUDIT-C) 1. How often do you have a drink containing alcohol?: 2-4 times a month 2. How many drinks containing alcohol do you have on a typical day when you are drinking?: 1 or 2 3. How often do you have six or more drinks on one occasion?: Never Total Score: 2 Score Reviewed/Action Taken: Yes VINAY-7 AMB Questionnaire VINAY-7 Date VINAY - 7 assessed: 06/03/24 Feeling nervous, anxious, or on edge: 1 = Several days Not being able to stop or control worryin = Not at all Worrying too much about different things: 1 = Several days Trouble relaxin = Several days Being so restless that it is hard to sit still: 1 = Several days Becoming easily annoyed or irritable: 0 = Not at all Feeling afraid as if something awful might happen: 0 = Not at all Total VINAY-7 score (0-4 normal; 5-9 mild; 10-14 moderate; 15-21 severe): 4 Source: Developed by Drs. Marcelino Agrawal, Eugenia El, Jerrell Gates and colleagues, with an educational carlos from [employer]. VINAY-7 Assessment Billing VINAY-7 Assessment Tool: VINAY-7 Assessment 25736 Review of Systems Const Details: Denies chills, Denies fatigue, Denies fever(s), Denies headache(s) and Denies weakness HEENT Denies change in vision, Denies dizziness, Denies headache(s), Denies hearing loss, Denies nasal congestion, Denies sinus pain, Denies sinus pressure and Denies sore throat Card Denies chest pain, Denies lightheadedness, Denies dyspnea and Denies other ( palpitations) Resp Denies cough, Denies dyspnea and Denies wheezing GI Denies abdominal pain, Denies melena, Denies hematochezia, Denies change in bowel habits, Denies dyspepsia and Denies nausea Denies hematuria and Denies dysuria Musc Denies abnormal gait, Denies myalgias, Denies arthralgias, Denies numbness and Denies tingling Skin/Breast Denies rash, Denies unusual bruising and Denies wounds Neuro Denies abnormal gait, Denies dizziness, Denies headache(s), Denies memory loss, Denies numbness, Denies Sensory deficit (Neuro), Denies tingling and Denies weakness Psych Denies anxiety, Denies depression and Denies memory loss Endo Denies cold intolerance, Denies fatigue, Denies heat intolerance, Denies polydipsia and Denies polyuria Evaristo/Lymph Denies easy bleeding and Denies easy bruising Aller/Immun Denies wheezing Physical exam (Primary Care) Vital Signs: Last Vital Signs Temp 97.7 F 06/03/24 08:07 Pulse 67 06/03/24 08:07 Resp 16 06/03/24 08:07 BP 120/74 06/03/24 08:07 Pulse Ox 98 06/03/24 08:07 Oxygen Delivery Method Room Air 06/03/24 08:07 BMI result Body Mass Index 33.8 Tobacco/Smoking Status: Tobacco use Status Tobacco use date assessed 06/03/24 06/03/24 08:07 Patient Tobacco Use Status Never used Tobacco 06/03/24 08:02 e-Cigarette/Vaping Use Currently Using 06/03/24 08:02 PHQ-9: PHQ-9 Score PHQ-9: Total score 7 06/03/24 08:11 Depression Screening Interpretation: Positive Depression Screening Follow-up: Existing condition Thrive Assessment: Date of Thrive Assessment Date Thrive assessed 06/03/24 06/03/24 08:11 Currently or been in a relationship where the following occur: No concerns reported Const Other: General: no acute distress, well developed, alert and awake Nutritional Appearance: well nourished Orientation/consciousness: patient oriented x3 HENMT Head: Yes normocephalic and Yes atraumatic Ears: hearing grossly normal bilaterally and TM's normal bilaterally General nose exam: Normal external nose present and Normal nares present Mouth: Normal oral and palatal mucosa present and moist mucous membranes Teeth and gingiva: dentition normal Throat: Yes oropharynx normal Eyes Pupils: Equal, round and reactive pupils present and Pupil accommodation reflex normal EOM: EOMs intact bilaterally Neck Neck: Yes normal visual inspection, Yes no lymphadenopathy and Yes trachea midline Thyroid: Thyroid normal Carotids: no bruits Lymphatic: no lymphadenopathy noted Chest Chest palpation & inspection: normal inspection of the chest Resp Effort & Inspection: normal respiratory effort Auscultation: clear to auscultation bilaterally Cardio Rate: regular rate Rhythm: regular rhythm Heart sounds: S1 normal heart sound present, S2 normal heart sound present, no gallops, no murmurs and no rubs Bruits: no abdominal aortic bruits and no carotid bruits GI Palpation (GI): No Abdominal aortic bruit present, Soft to palpation, nontender, No hepatosplenomegaly present and No Rebound tenderness present Auscultation: normal bowel sounds General: Yes no CVA tenderness Back/Spine/Pelvis Back: no CVA tenderness Cervical Spine: cervical ROM normal and No Cervical spine tenderness Thoracic/Lumbar Spine: thoraco-lumbar ROM normal, No pain with thoraco-lumbar ROM, No thoracic spinal tenderness and No lumbar spinal tenderness Skin General: warm and dry. Normal skin color. Normal skin turgor Lesions: no lesions Rashes: no rashes Trauma: no lacerations or abrasions Wounds: no wounds Nails: normal Neuro General: patient oriented x3, gait normal and CN's II-XI intact bilaterally Cranial nerves: Yes Equal, round and reactive pupils present Cognition (Neuro): normal cognition Gait exam (Neuro): Normal gait present Motor exam (neuro): 5/5 motor strength present throughout Sensory Exam: No Sensory deficit (Neuro) Deep tendon reflexes (DTR's): Right patellar reflex intensity grade: 2+ and Left patellar reflex intensity grade: 2+ Extrem General: Yes normal to inspection, No edema and No calf tenderness Psych Appearance: grossly normal Affect: normal affect Attitude: cooperative Thought process: Normal thought process present Assessment and Plan Assessment & Plan (1) Normal physical examination, routine: Code(s): Z00.00 - Encounter for general adult medical examination without abnormal findings Plan: No significant physical restrictions or limitations noted Continue current treatment regimen Healthy diet and routine exercise encouraged Advised to get fasting blood work done and schedule a telehealth visit in 2-3 weeks for labs review Return with symptoms or concerns Verbalized understanding and agreed with the plan (2) Anxiety and depression: Code(s): F41.9 - Anxiety disorder, unspecified; F32.A - Depression, unspecified Plan: Controlled symptoms PHQ-9 score revealed mild depression. VINAY-7 score is normal Routine exercise encouraged Follow-up with symptoms or concerns Verbalized understanding and agreed with the plan (3) ADHD: Code(s): F90.9 - Attention-deficit hyperactivity disorder, unspecified type Plan: Reports as per HPI (4) Postablative hypothyroidism: Code(s): E89.0 - Postprocedural hypothyroidism Plan: Continue current treatment regimen Will check TSH/4 level and make changes as needed (5) Hydrocele: Code(s): N43.3 - Hydrocele, unspecified Plan: Followed by [facility] urology (6) Hypertriglyceridemia: Code(s): E78.1 - Pure hyperglyceridemia Plan: Recent triglyceride level was elevated, 216 Will check lipid panel level and make changes as needed Advised to limit foods high in saturated fat and avoid foods high in trans fat Routine exercise encouraged Verbalized understanding and agreed with the plan (7) Vitamin D deficiency: Code(s): E55.9 - Vitamin D deficiency, unspecified Plan: Recent vitamin-D level is low, 20 Continue current treatment regimen Will check vitamin-D level and make changes as needed Verbalized understanding and agreed with the plan (8) Obesity (BMI 30-39.9): Code(s): E66.9 - Obesity, unspecified Plan: He currently weighs 249 lb, BMI is 33.8 He has not been making healthy dietary choices. However, he has been doing routine physical exercise Healthy diet and routine exercise encouraged Follow-up with symptoms or concerns or requires dietitian or weight management referral Verbalized understanding and agreed with the plan Orders: Orders Vitamin D 25-OH Total Today E55.9 - Vitamin D deficiency, unspecified Coding Level of Care Code Est Pt Prev Care 18-39y(76106) Diagnoses Normal physical examination, routine Z00.00 Anxiety and depression F41.9; F32.A ADHD F90.9 Postablative hypothyroidism E89.0 Hydrocele N43.3 Hypertriglyceridemia E78.1 Vitamin D deficiency E55.9 Obesity (BMI 30-39.9) E66.9 Additional Codes VINAY-7 Assessment Billing - VINAY-7 Assessment Tool: VINAY-7 Assessment [id number] ([id number])
[2024-06-03 08:07] VITALS: BP 120/74; PULSE 67; RESP 16; TEMP 36.5; O2SAT 98; BMI 33.8
== END 2024-06-03 08:36 | disposition home or self-care (01) ==
PROVIDERS: PCP Nurse Practitioner Family; Visit Provider Nurse Practitioner Family
DX: Z00.00 Encounter for general adult medical examination without abnormal findings (principal); F41.9 Anxiety disorder, unspecified; F32.A Depression, unspecified; F90.9 Attention-deficit hyperactivity disorder, unspecified type; E89.0 Postprocedural hypothyroidism; N43.3 Hydrocele, unspecified; E78.1 Pure hyperglyceridemia; E55.9 Vitamin D deficiency, unspecified; E66.9 Obesity, unspecified
CPT/HCPCS: 96127; 99395

== ENCOUNTER 2024-06-03 08:46 | Outpatient (REF) | payer BC, SELFPAY ==
[2024-06-03 11:11] LABS: MANUAL DIFF FLAG NO
[2024-06-03 11:16] LABS: Appearance Urine Clear; Color Urine Yellow; Glucose Urine UA Negative (Negative); Leukocyte Esterase Urine Negative (Negative); Nitrite Urine Negative (Negative); PH 6.5 (5.0-9.0); Specific Gravity - Urine 1.015 (1.005-1.025); Urine Blood Negative (Negative); Urine Ketones Negative (Negative); Urine Protein Negative (Neg-Trace)
[2024-06-03 11:19] LABS: Basophils Percent Auto 0.7 % (0-2); Eosinophils Absolute Auto 0.1 X10*3/uL (0.0-0.4); Eosinophils Percent Auto 1.5 % (0-4); Hematocrit 45.2 % (42.0-52.0); Hemoglobin 15.1 g/dl (14.0-18.0); Imm Gran Abs Auto 0.01 X10*3/uL (0.00-0.03); Imm Gran Pct Auto 0.2 % (0.0-0.4); Lymphocytes Absolute Auto 1.9 X10*3/uL (1.2-4.9); Lymphocytes Percent Auto 32.1 % (20-40); Mean Corpuscular HGB Conc 33.4 g/dl (31.0-36.0); Mean Corpuscular Hemoglobin 27.4 pg (27.0-33.0); Mean Corpuscular Volume 81.9 fL (80.0-98.0); Mean Platelet Volume 9.6 fL (9.4-12.4); Monocytes Absolute Auto 0.6 X10*3/uL (0.1-1.2); Neutrophils Absolute Auto 3.3 x10*3/uL (2.0-8.3); Neutrophils Percent Auto 55.5 % (45-73); Platelet Count 279 X10*3/uL (160-400); Red Blood Count 5.52 X10*6/uL (4.60-5.80); White Blood Count 5.9 X10*3/uL (4.8-10.8)
[2024-06-03 12:22] LABS: Alanine Aminotransferase 72 U/L (0-40); Albumin Level 4.6 g/dL (3.5-5.0); Alkaline Phosphatase 50 U/L (39-117); Anion Gap 12 (12-20); Aspartate Amino Transferase 36 U/L (5-37); Bilirubin Total 0.6 mg/dL (0.0-1.0); Blood Urea Nitrogen 14 mg/dL (9-16); Calcium 9.7 mg/dL (8.4-10.2); Carbon Dioxide 28 mmol/L (22-29); Chloride 104 mmol/L (96-108); Cholesterol 139 mg/dL (<200); Estimated Glomerular Filt Rate > 60; Glucose Fasting 98 mg/dL (60-99); HDL Cholesterol 54 mg/dL (>40); LDL Cholesterol Calculated 65 mg/dL (<100); Potassium 4.4 mmol/L (3.3-5.1); Sodium 140 mmol/L (135-145); TSH reflex Free T4 2.27 uIU/mL (0.32-4.0); Total Protein 7.4 g/dL (6.5-8.0); Triglycerides 103 mg/dL (<150); Vitamin D 25-OH Total 40.9 ng/mL (>30)
== END 2024-06-03 08:47 | disposition home or self-care (01) ==
LOC: HO.WFDLDS 08:46
PROVIDERS: Visit Provider Nurse Practitioner Family
DX: Z00.00 Encounter for general adult medical examination without abnormal findings (principal); E55.9 Vitamin D deficiency, unspecified
CPT/HCPCS: 36415; 80053; 80061; 81003; 82306; 84443; 85025

== ENCOUNTER 2024-06-23 14:45 | Outpatient (AMB) | payer BC, SELFPAY ==
--- NOTE | 2024-06-23 07:58 | A.OFFPC_ITS ---
Intake Visit Reasons: Telehealth 2-3 wks labs review Allergies No Known Allergies Allergy (Verified 06/23/24 15:25) Medication List - Last Reconciled 06/23/24 by Ashish Noriega CNP bisacodyl (Dulcolax (bisacodyl)) 20 mg (4 x 5 mg) PO ONCE 1 day cholecalciferol (vitamin D3) 50 mcg PO DAILY levothyroxine 150 mcg PO DAILY 90 days polyethylene glycol 3350 (Miralax) 238 grams PO ONCE 1 day Tobacco use date assessed: 06/03/24 Dental Screening Dental Screen Date: 06/03/24 HPI HPI Comments History of Present Illness Details 29 y/o male presents for review of recen t lab results He admits to taking his medications as prescribed without adverse reactions He offers no complaints and denies acute symptoms at this time [facility] Medical History Male circumcision Hypothyroid Anxiety ADD (attention deficit disorder) Heart palpitations Irregular heart beat Surgical History History of placement of ear tubes [place] teeth extracted Family History Father Thyroid disease Mother Thyroid disease Lymphoma Melanoma Breast cancer Social History Housing: Condominium Patient Tobacco Use Status: Never used Tobacco e-Cigarette/Vaping Use: Currently Using Second Hand Smoke Exposure: No service: No Current occupational status: employed 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 Marcelino Agrawal, Eugenia El, Jerrell Gates and colleagues, with an educational carlos from [employer]. Review of Systems Const Details: Const Denies chills, Denies fatigue, Denies fever(s), Denies headache(s) and Denies weakness ENT Denies dizziness and Denies headache(s) Card Denies chest pain, Denies lightheadedness, Denies dyspnea and Denies other (Palpitations) Resp Denies cough, Denies dyspnea, Denies wheezing and Denies other ( shortness of breath) GI Denies abdominal pain, Denies melena, Denies hematochezia, Denies change in bowel habits, Denies dyspepsia and Denies nausea Denies hematuria and Denies dysuria Musc Denies abnormal gait, Denies myalgias, Denies arthralgias, Denies numbness and Denies tingling Skin/Breast Denies rash, Denies unusual bruising and Denies wounds Neuro Denies abnormal gait, Denies dizziness, Denies headache(s), Denies memory loss, Denies numbness, Denies Sensory deficit (Neuro), Denies tingling and Denies weakness Psych Denies anxiety, Denies depression, Denies memory loss Endo Denies cold intolerance, Denies fatigue, Denies heat intolerance, Denies polydipsia and Denies polyuria Aller/Immun Denies wheezing Physical exam (Primary Care) Tobacco/Smoking Status: Tobacco use Status Tobacco use date assessed 06/03/24 06/23/24 08:05 Patient Tobacco Use Status Never used Tobacco 06/23/24 08:05 e-Cigarette/Vaping Use Currently Using 06/23/24 08:05 Thrive Assessment: Date of Thrive Assessment Date Thrive assessed 06/03/24 06/23/24 08:05 Const Other: Telehealth visit. No physical exam Telehealth Telehealth Telehealth Platform: Telephone Location of provider rendering services: practice address Location of patient: address on file Patient Identification confirmed using: Name, : Yes Telehealth method: voice only Patient verbally consented to treatment: Yes Patient verbally consented to billing insurance company: Yes Patient informed of any privacy concerns related to visit: Yes Assessment and Plan Assessment & Plan (1) Elevated ALT measurement: Code(s): R74.01 - Elevation of levels of liver transaminase levels Plan: Recent lab results are unremarkable except for slightly elevated ALT He drinks alcohol occasionally. He is obese Likely d/t hepatic steatosis Healthy diet and routine exercise encouraged Will monitor liver enzymes periodically or based on symptoms Follow up on/after 06/03/2025 for an extended physical exam or return sooner with symptoms or concerns Verbalized understanding and agreed with the plan Medications: Refilled levothyroxine 150 mcg PO DAILY 90 days 90 tabs 3RF Coding Level of Care Code Tele Est Pt Level 3 (20148) Diagnoses Elevated ALT measurement R74.01 Time Spent (min) 10
== END 2024-06-23 15:27 | disposition home or self-care (01) ==
LOC: HO.HMCFM 14:45
PROVIDERS: PCP Nurse Practitioner Family; Visit Provider Nurse Practitioner Family
DX: R74.01 Elevation of levels of liver transaminase levels (principal)

== ENCOUNTER → 2024-06-23 14:45 | Outpatient (BNVA) | payer BC, SELFPAY | PROVIDERS: PCP Nurse Practitioner Family; Visit Provider Nurse Practitioner Family ==

== ENCOUNTER 2024-08-19 08:02 | Outpatient (AMB) | payer BC, SELFPAY ==
[2024-08-19 08:08] VITALS: BP 122/80; PULSE 64; TEMP 37; O2SAT 97
--- NOTE | 2024-08-19 08:08 | MHC.OFFWIV ---
Intake Vital Signs 08/19/24 08:08 Weight 242 lb 8 oz BP 122/80 Blood Pressure Location Rt brachial Position Sitting Pulse 64 Pulse Source Pulse Oximeter Temp 98.6 F Temp Source Oral Pulse Oximetry (%) 97 Oxygen Delivery Method Room Air Intake Visit Reasons: EP-laryngitis Intake Note: Patient here for laryngitis that has been present for 8 days. Patient Tobacco Use Status: Never used Tobacco Allergies No Known Allergies Allergy (Verified 08/19/24 08:11) Do you need a note to return to daycare/school/sports/work: No HPI HPI Comments History of Present Illness Details 29 y/o male patient who presents to the walk in clinic with c/o Sore throat for 8 days. He does report subjective fevers at home. He does endorse some coughing that started this morning. 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 Current occupational exposures/hazards: Yes Cognitive needs: No Hearing needs: No Vision needs: No Review of Systems Const All systems reviewed & are unremarkable except as noted in HPI and below Physical Exam Vital Signs: Last Vital Signs Temp 98.6 F 08/19/24 08:08 Pulse 64 08/19/24 08:08 BP 122/80 08/19/24 08:08 Pulse Ox 97 08/19/24 08:08 Oxygen Delivery Method Room Air 08/19/24 08:08 Const General: no acute distress Nutritional Appearance: overweight Orientation/consciousness: patient oriented x3 HEENT Head: Yes normocephalic Ears: external ears normal and TM abnormal with fluid behind the TM bilateral General nose exam: Normal external nose present Face and sinus: Yes sinuses nontender Mouth: moist mucous membranes and Abnormal oral and palatal mucosa present erythematous Throat: Yes abnormal tonsil (+3 Enlarged tonsils.) Resp Effort & Inspection: normal respiratory effort and able to speak in complete sentences Auscultation: clear to auscultation bilaterally, no crackles, no rales, no rhonchi and no wheezes Cardio Heart sounds: S1 normal heart sound present and S2 normal heart sound present Neuro General: patient oriented x3 Results AMB Rapid Strep AMB Rapid Strep Negative Last Edit by TELLO Landin on 08/19/24 08:31 Results Reviewed Results Reviewed: Laboratory Last Values Strep Scn Rapid Clinic Negative 08/19/24 08:30 Assessment & Plan Assessment & Plan (1) Acute pharyngitis: Code(s): J02.9 - Acute pharyngitis, unspecified Qualifiers: Pharyngitis/tonsillitis etiology: unspecified etiology Qualified Code(s): J02.9 - Acute pharyngitis, unspecified Plan: Rapid Strep negative. OTC cold/cough remedies Warm fluids with honey Rest Acetaminophen for pain relief. Orders: Orders AMB Rapid Strep Screen Today Z13.9 - Encounter for screening, unspecified Coding Level of Care Code Est Pt Level 3 (74765) Diagnoses Acute pharyngitis, unspecified etiology J02.9 Pharyngitis/tonsillitis etiology: unspecified etiology Time Spent (min) 15
== END 2024-08-19 08:37 | disposition home or self-care (01) ==
PROVIDERS: PCP Nurse Practitioner Family; Visit Provider Nurse Practitioner Family
DX: J02.9 Acute pharyngitis, unspecified (principal); Z13.9 Encounter for screening, unspecified

== ENCOUNTER → 2024-08-19 08:02 | Outpatient (BNVA) | payer BC, SELFPAY | PROVIDERS: PCP Nurse Practitioner Family; Visit Provider Nurse Practitioner Family | DX: J02.9 Acute pharyngitis, unspecified (principal) | CPT/HCPCS: 87880 ==

== ENCOUNTER 2024-09-25 10:58 | Outpatient (AMB) | payer BC, SELFPAY ==
--- NOTE | 2024-09-25 11:07 | A.OFFPC_ITS ---
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 Allergies No Known Allergies Allergy (Verified 09/25/24 11:45) Medication List - Last Reconciled 09/25/24 by Ashish Noriega CNP cholecalciferol (vitamin D3) 50 mcg PO DAILY levothyroxine 150 mcg PO DAILY 90 days Tobacco use date assessed: 09/25/24 Dental Screening Dental Screen Date: 09/25/24 Did you have a dental visit in the last 12 months?: Yes Did you have a dental problem in the last 6 months where you did not have access to dental care?: No Was dental information given to patient?: Patient has dentist HPI HPI Comments History of Present Illness Details 29-year-old male presents with complaint s of a painless lump to his left breast and a mole on the right side of his neck with intermittent pain. The lump in his left breast has been present for the past 2 months. He requests Dermatology referral to have skin tags removed. No constitutional symptoms. He admits to taking his medications as prescribed without adverse reactions. 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 1. Little interest or pleasure in doing things: several days 2. Feeling down, depressed, or hopeless: not at all 3. Trouble falling or staying asleep, or sleeping too much: several days 4. Feeling tired or having little energy: not at all 5. Poor appetite or overeating: more than half the days 6. Feeling bad about yourself - or that you are a failure or have let yourself or your family down: several days 7. Trouble concentrating on things, such as reading the newspaper or watching television: several days 8. Moving or speaking so slowly that other people could have noticed. Or the opposite - being so fidgety or restless that you have been moving around a lot more than usual: not at all 9. Thoughts that you would be better off or of hurting yourself in some way: not at all Total score: 6 Source: Developed by Drs. Marcelino Agrawal, Eugenia El, Jerrell Gates and colleagues, with an educational carlos from [employer]. Thrive Questionnaire Date Thrive assessed: 09/22/24 I am a: Patient What is your living situation today?: I have a steady place to live Within the past 12 months, did the food you bought not last and you didn't have the money to get more?: Never true Within the past 12 months, did you worry whether your food would run out before you got money to buy more?: Never true Do you have trouble paying for medicines?: No Do you have trouble getting transportation to medical appointments?: No Do you have trouble paying your heating and electricity bill?: No Do you have trouble taking care of your child, family member or friend?: No Do you have trouble with day-to-day activities such as bathing, preparing meals, shopping, managing finances, etc.?: No Are you currently unemployed and looking for a job?: No Are you interested in more education?: No Please select the resources that you would like help with: None Currently or been in a relationship where the following occur: No concerns reported THRIVE Score: 0 AUDIT C Alcohol Use Questionnaire (AUDIT-C) 1. How often do you have a drink containing alcohol?: 2-4 times a month 2. How many drinks containing alcohol do you have on a typical day when you are drinking?: 1 or 2 3. How often do you have six or more drinks on one occasion?: Never Total Score: 2 VINAY-7 AMB Questionnaire VINAY-7 Date VINAY - 7 assessed: 06/03/24 Feeling nervous, anxious, or on edge: 1 = Several days Not being able to stop or control worryin = Several days Worrying too much about different things: 1 = Several days Trouble relaxin = Several days Being so restless that it is hard to sit still: 0 = Not at all Becoming easily annoyed or irritable: 0 = Not at all Feeling afraid as if something awful might happen: 1 = Several days Total VINAY-7 score (0-4 normal; 5-9 mild; 10-14 moderate; 15-21 severe): 5 Source: Developed by Drs. Marcelino Agrawal, Eugenia El, Jerrell Gates and colleagues, with an educational carlos from [employer]. Review of Systems Const Details: Const Denies chills, Denies fatigue, Denies fever(s), Denies headache(s) and Denies weakness ENT Denies dizziness and Denies headache(s) Card Denies chest pain, Denies lightheadedness, Denies dyspnea and Denies other (Palpitations) Resp Denies cough, Denies dyspnea, Denies wheezing and Denies other ( shortness of breath) GI Denies abdominal pain, Denies melena, Denies hematochezia, Denies change in bowel habits, Denies dyspepsia and Denies nausea Denies hematuria and Denies dysuria Musc Denies abnormal gait, Denies myalgias, Denies arthralgias, Denies numbness and Denies tingling Skin/Breast Reports as per HPI Neuro Denies abnormal gait, Denies dizziness, Denies headache(s), Denies memory loss, Denies numbness, Denies Sensory deficit (Neuro), Denies tingling and Denies weakness Psych Denies anxiety, Denies depression, Denies memory loss Endo Denies cold intolerance, Denies fatigue, Denies heat intolerance, Denies polydipsia and Denies polyuria Aller/Immun Denies wheezing Physical exam (Primary Care) Vital Signs: Last Vital Signs Temp 98.7 F 09/25/24 11:10 Pulse 76 09/25/24 11:10 Resp 16 09/25/24 11:10 BP 132/76 09/25/24 11:10 Pulse Ox 100 09/25/24 11:10 Oxygen Delivery Method Room Air 09/25/24 11:10 BMI result Body Mass Index 33.8 Tobacco/Smoking Status: Tobacco use Status Tobacco use date assessed 09/25/24 09/25/24 11:14 Patient Tobacco Use Status Never used Tobacco 09/25/24 11:08 e-Cigarette/Vaping Use Currently Using 09/25/24 11:08 PHQ-9: PHQ-9 Score PHQ-9: Total score 6 09/25/24 11:08 Thrive Assessment: Date of Thrive Assessment Date Thrive assessed 09/22/24 09/25/24 11:08 Currently or been in a relationship where the following occur: No concerns reported Const Other: General: no acute distress and well developed Nutritional Appearance: well nourished Orientation/consciousness: patient oriented x3 HENMT Head: Yes normocephalic and Yes atraumatic Eyes General: appearance normal, both eyes and all related structures Pupils: Equal, round and reactive pupils present EOM: EOMs intact bilaterally Resp Effort & Inspection: normal respiratory effort Auscultation: clear to auscultation bilaterally Cardio Rate: regular rate Rhythm: regular rhythm Heart sounds: S1 normal heart sound present, S2 normal heart sound present, no gallops, no murmurs and no rubs Chest: Normal breast exam with normal breast tissues; no lumps/lesion; no tenderness with palpation GI Palpation (GI): No Abdominal aortic bruit present, Soft to palpation, nontender, No hepatosplenomegaly present and No Rebound tenderness present Auscultation: normal bowel sounds General: Yes no CVA tenderness Back/Spine/Pelvis Back: no CVA tenderness Cervical Spine: cervical ROM normal and No Cervical spine tenderness Thoracic/Lumbar Spine: thoraco-lumbar ROM normal, No pain with thoraco-lumbar ROM, No thoracic spinal tenderness and No lumbar spinal tenderness Extrem General: Yes normal to inspection, No edema and No calf tenderness Skin General: warm and dry. Normal skin color. Normal skin turgor Lesions: Small, round, coffee brown, skin tags noted to the neck; Two on the right side and one on her left. Rashes: no rashes Trauma: no lacerations or abrasions Wounds: no wounds Nails: normal Neuro General: patient oriented x3, gait normal and no focal neuro deficit Cranial nerves: Yes Equal, round and reactive pupils present Cognition (Neuro): normal cognition Gait exam (Neuro): Normal gait present Sensory Exam: No Sensory deficit (Neuro) Psych Appearance: grossly normal Affect: normal affect Attitude: cooperative Thought process: Normal thought process present Coding Level of Care Code Est Pt Level 3 (56520) Diagnoses Skin tag L91.8 Vitamin D deficiency E55.9 Postablative hypothyroidism E89.0 Assessment & Plan Assessment & Plan (1) Skin tag: Code(s): L91.8 - Other hypertrophic disorders of the skin Category: Medical Plan: Small, round, coffee brown, skin tags noted to the neck; Two on the right side and one on her left. May take Tylenol ibuprofen as needed for pain or discomfort. Warm/cool compresses encouraged. Referred to Dermatology as requested. Follow-up as needed. Verbalized understanding and agreed with the plan. (2) Vitamin D deficiency: Code(s): E55.9 - Vitamin D deficiency, unspecified Category: Medical Plan: Continue current treatment regimen. Perform blood work in 3-4 months. Will review results and make changes as needed. Verbalized understanding and agreed with the plan. (3) Postablative hypothyroidism: Code(s): E89.0 - Postprocedural hypothyroidism Category: Medical Plan: Plan as above Plan Normal breast exam with normal breast tissues; no lumps/lesion; no tenderness with palpation. Follow-up as needed. Orders: Orders TSH reflex Free T4 Today E89.0 - Postprocedural hypothyroidism Vitamin D 25-OH Total Today E55.9 - Vitamin D deficiency, unspecified Referrals Dermatology Referral L91.8 - Other hypertrophic disorders of the skin
[2024-09-25 11:10] VITALS: BP 132/76; PULSE 76; RESP 16; TEMP 37.1; O2SAT 100; BMI 33.8
== END 2024-09-25 11:58 | disposition home or self-care (01) ==
PROVIDERS: PCP Nurse Practitioner Family; Visit Provider Nurse Practitioner Family
DX: L91.8 Other hypertrophic disorders of the skin (principal); E55.9 Vitamin D deficiency, unspecified; E89.0 Postprocedural hypothyroidism

== ENCOUNTER 2024-10-30 06:57 | Day surgery (SDC) | payer BC, SELFPAY ==
[2024-10-28 10:52] VITALS: BMI 33.8
--- NOTE | 2024-10-29 09:50 | HO.ANESPROP2 ---
Documented by User: Josie Cope NP 10/29/24 09:50 HPI - Anesthesia Eval Consult details Narrative: 29yo M for Colonoscopy PMFSH Active Problems Active Problems: All Active Problems Skin tag (Acute) Elevated ALT measurement (Acute) Obesity (BMI 30-39.9) (Acute) ADHD (Acute) Hypertriglyceridemia (Acute) Vitamin D deficiency (Acute) Epididymal cyst (Acute) Rectal bleeding (Acute) Cough (Acute) Rhinitis (Acute) Diarrhea (Acute) Viral upper respiratory illness (Acute) Normal physical examination, routine (Acute) Hydrocele (Acute) Postablative hypothyroidism (Acute) Testicular cyst (Acute) Anxiety and depression (Acute) Laboratory tests ordered as part of a complete physical exam (CPE) (Acute) Past Medical History Medical History Arrhythmia Fatty liver Hypertriglyceridemia Depression Hypothyroid Anxiety ADD (attention deficit disorder) Heart palpitations Family History Family History Father Thyroid disease Mother Thyroid disease Lymphoma Melanoma Breast cancer Surgical History Surgical History Hx of circumcision History of placement of ear tubes [place] teeth extracted Social History Social History Housing: Condominium Patient Tobacco Use Status: Never used Tobacco e-Cigarette/Vaping Use: Currently Using Second Hand Smoke Exposure: No Use of substances other than those prescribed or required for medical reasons: Yes Advance Directives: No Advance Directives Information Provided: Yes Recently lost weight without trying: No Nutrition Risks: No Nutritional Risk Poor oral hygiene: No service: No Current occupational status: employed 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 Current occupational exposures/hazards: Yes Cognitive needs: No Hearing needs: No Vision needs: No Meds Allergies Allergy/AdvReac Type Severity Reaction Status Date / Time No Known Allergies Allergy Verified 09/25/24 11:45 Exam Height,Weight and Vital Signs: Height 6 ft Weight 112.945 kg Assessment and Plan Assessment Anesthesia Assessment: Chart Reviewed Documented by User: Alicia Vaca MD 10/30/24 07:37 PMFSH Past Medical History Medical History Arrhythmia Fatty liver Hypertriglyceridemia Depression Hypothyroid Anxiety ADD (attention deficit disorder) Heart palpitations Family History Family History Father Thyroid disease Mother Thyroid disease Lymphoma Melanoma Breast cancer Surgical History Surgical History Hx of circumcision History of placement of ear tubes [place] teeth extracted History of Problems with Anesthesia: No Social History Social History Housing: Condominium Patient Tobacco Use Status: Never used Tobacco e-Cigarette/Vaping Use: Currently Using Second Hand Smoke Exposure: No Use of substances other than those prescribed or required for medical reasons: Yes Advance Directives: No Advance Directives Information Provided: Yes Recently lost weight without trying: No Nutrition Risks: No Nutritional Risk Poor oral hygiene: No service: No Current occupational status: employed 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 Current occupational exposures/hazards: Yes Cognitive needs: No Hearing needs: No Vision needs: No Meds Allergies Allergy/AdvReac Type Severity Reaction Status Date / Time No Known Allergies Allergy Verified 09/25/24 11:45 Exam Airway Mallampati Class: III TM Dist: >3cm Neck ROM: Full Loose/Missing/Broken Teeth: No Heart: RRR Lungs: CTA Assessment and Plan Assessment Anesthesia Assessment: Anesthesia Plan Discussed Final Anesthetic Review History of Problems with Anesthesia: No NPO: Yes ASA Class: II and III Final Preanesthetic Review: Meds/Allgs Chart Reviewed, Consent Obtained/Reviewed and Anes Risks/Benef Reviewed Patient Risk: Low Procedure Risk: Low Anesthetic Plan Anesthetic Plan: MAC: Disposition: Standard PACU
[2024-10-30 07:15] VITALS: BMI 31.9
[2024-10-30 07:33] VITALS: BP 120/68; PULSE 87; RESP 16; TEMP 36.3; O2SAT 97
[2024-10-30] MEDS: Lactated Ringers 1,000 ML 100 ML IVCONT (07:42)
--- NOTE | 2024-10-30 07:52 | P.HPSUR_ITS ---
Pre-Procedural Eval Section A - 24 Hr Update-Section A only Date of Service: 10/30/24 Section B - Complete if H&P > 30 days Chief Complaint: Hemorrhage of anus and rectum Details of Present Illness: Male circumcision Hypothyroid Anxiety ADD (attention deficit disorder) Heart palpitations Irregular heart beat Surgical History History of placement of ear tubes [place] teeth extracted Allergies: Allergies Allergy/AdvReac Type Severity Reaction Status Date / Time No Known Allergies Allergy Verified 09/25/24 11:45 Review of Systems Review of Systems Comment: Ten point ROS negative Exam Exam Comment: Gen appear: No acute distress HEENT: no icterus Chest: No overt resp distress Abd: soft, nontender, nondistended Psych: Stable affect, answering questions appropriately Neuro: A/Ox3 noted to move all extremities spontaneously Ext: no peripheral edema Plan Diagnosis/Plan: Unchanged I have reviewed the history and physical and performed a pertinent physical examination on my patient. No changes have occurred unless specified. Time Spent With Patient Time: Total time managing care of this patient today ____ minutes.
[2024-10-30 08:38] VITALS: BP 103/71; PULSE 77; RESP 18; TEMP 36.2; O2SAT 99
[2024-10-30 08:53] VITALS: BP 103/79; PULSE 82; RESP 20; TEMP 36.3; O2SAT 98
--- NOTE | 2024-10-30 09:24 | HO.OPN-COLON ---
Colonoscopy Operative Note Operative Note Date of Service: 10/30/24 Narrative: Procedure: Colonoscopy Indication: Diarrhea Endoscopist: Priya Smith MD Anesthesia Provider: Dr Fern Vaca Anesthesia type: MAC Instrument: Olympus [id number]-[id number] Consent: Indication, risks vs benefits, and alternatives were discussed with the patient who gave written informed consent to proceed. EKG, pulse, pulse oximetry and blood pressure were monitored throughout the procedure. Please see anesthesia flowsheet. Procedure: The patient was brought to the procedure room and placed in the left lateral decubitus position. IV medications were administered by the anesthesia provider in attendance. A digital rectal exam was performed which was normal. A distal attachment cap was affixed to the tip of the colonoscope which was then inserted through the anus and advanced through the colon to the cecum at 75 cm,and terminal ileum. Appendiceal orifice and ileocecal valve were identified. Mucosa was carefully examined under high definition white light as the instrument was slowly withdrawn in a retrograde panoramic fashion. Retroflexion was performed in rectum. The procedure was not difficult. There were no immediate obvious complications. The quality of the prep was BBPS: 3+2+3 = adequate Withdrawal time 6 minutes. Limitations: No limitations. Findings: Mucosa: Normal to cecum and terminal ileum. Cold forceps biopsies were taken from the right and left side of the colon to rule out microscopic colitis. Impression: 1. Normal colon mucosa (biopsy) Recommendations: - Follow path results. - Colonoscopy for asymptomatic colorectal cancer screening to begin at 45 years of age
== END 2024-10-30 09:39 | disposition home or self-care (01) ==
PROVIDERS: PCP Nurse Practitioner Family; Visit Provider Internal Medicine
PROC: 0DJD8ZZ Inspection of Lower Intestinal Tract, Via Natural or Artificial Opening Endoscopic (ICD-10-PCS; CPT 45378; principal; 2024-10-30 08:10)
DX: K62.5 Hemorrhage of anus and rectum (principal); K58.2 Mixed irritable bowel syndrome; E03.9 Hypothyroidism, unspecified; F98.8 Other specified behavioral and emotional disorders with onset usually occurring in childhood and adolescence; F41.8 Other specified anxiety disorders; R00.2 Palpitations; Z79.899 Other long term (current) drug therapy
CPT/HCPCS: 45380; 88305; J2003; J2250; J2704

== ENCOUNTER → 2024-10-30 06:57 | Outpatient (BNV) | payer BC, SELFPAY | PROVIDERS: PCP Nurse Practitioner Family; Visit Provider Internal Medicine | DX: R19.7 Diarrhea, unspecified (principal) | CPT/HCPCS: 45380 ==

== ENCOUNTER 2024-11-12 09:58 | Outpatient (REF) | payer BC, SELFPAY ==
--- NOTE | ~2024-11-12 | US_ITS ---
CLINICAL HISTORY: N50.3 - Cyst of epididymis US Scrotum with Doppler Comparison: None Findings: Right testicle normal size and echotexture, 5 x 2 x 3.8 cm. Left testicle normal size and echotexture, 5 x 2.2 x 3.4 cm. Normal color flow and arterial/venous spectral tracing of both testicles. No testicular lesion. Epididymides are unremarkable, except for a simple 4 mm left-sided epididymal cyst. No hydroceles. IMPRESSION: 4 mm simple left epididymal cyst not requiring further follow-up/workup. This document has been electronically signed by: Vonda Tay MD on 11/13/2024 11:06:49
--- OUTSIDE RECORDS SUMMARY | 2024-11-12 10:28 | XMS_ITS | Data Portability ---
Author Organization [place] [facility], Main Office Address [address] [place] [address] Assessment No assessment recorded. Plan of Treatment Reminders Order Date Submit Date Provider Last Modified By Organization Details Last Modified Time Details Appointments None recorded. Lab lipid panel, serum 2018 019 [email or web address], [address], [address], [place], [address], 9 08:49:48 CMP, serum or plasma 2018 019 [facility], [address], [address], [place], [address], 9 08:49:49 TSH, serum or plasma 2018 019 [facility], [address], [address], [place], [address], 9 08:49:50 CBC w/ auto diff 2018 019 [facility], [address], [address], [place], [address], 9 08:49:50 CBC w/ auto diff 2018 019 lissette Armendariz Not available 9 09:37:48 CMP, serum or plasma 2018 019 [facility] Not available 9 18:35:13 lipid panel, serum 2018 019 [facility] Not available 9 18:35:12 TSH, serum, reflex free T4 2018 lissette Armendariz Not available 9 09:37:48 Referral None recorded. Procedures None recorded. Surgeries None recorded. Imaging None recorded. Medication Orders Lotrisone 1 %-0.05 % topical cream 2018 INTERFACE [id number], [address] [place], [address], 9 08:50:47 levothyrox ine 150 mcg tablet 2018 019 INTERFACE [id number], [address] [place], [address], 9 08:50:47 levothyrox ine 150 mcg tablet 2018 019 INTERFACE [id number], [address] [place], [address], 9 08:27:42 Patient TargetsNo targets recorded. Patient Instructions Encounter Date Encounter Id Patient Instructions Last Modified By Organization Details Last Modified Time 12/13/2018 [id number] 1. F/U when possible. 2. Got Tdap shot today. 3. Will call with lab results. 4. Sent medication to [facility] on [address]. 5. Any questions, please call office. [email or web address] Not available 12/13/2018 08:36:50 09/15/2019 [id number] 1. Keep skin cool and dry - wear cotton materials and loose clothing 2. Blood draw done today, will contact you with results of your labs 3. 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 He will call office if he needs to be seen or if he changes plans and stay in [place] pearl Not available 09/15/2019 08:58:08 Reason for Referral None Reported. Results Created Date Observation Date Name Description Value Unit Range Abnormal Flag Note LastModifiedBy Organization Detail LastModifiedTime 03/22/12/14/2018 lipid panel , serum cholesterol 129 mg/dL <200 Not Available [facility] ([employer]) [address], [place], [address], 12/14/2018 18:35:12 12/14/19 19 12/14/2018 lipid panel , serum HDL chol., direct 49 mg/dL >40 Not Available [facility] ([employer]) [address], [place], [address], 12/14/2018 18:35:12 12/14/1912/14/2018 lipid panel , serum triglyceride s 132 mg/dL <150 Not Available [facility] ([employer]) [address], [place], [address], 12/14/2018 18:35:12 12/14/19 19 12/14/2018 lipid panel , serum HDL % of cholesterol 38 % >14 Evalu ation : BELOW AVERA GE RISK Not Available [facility] ([employer] [employer]) [address], [place], [address], 12/14/2018 18:35:12 12/14/19 19 12/14/2018 lipid panel , serum chol/HDL ratio 2.6 <7.4 Evalu ation : BELOW AVERA GE RISK Not Available [facility] ([employer] [facility]) [address], [place], [address], 12/14/2018 18:35:12 12/14/19 19 12/14/2018 lipid panel , serum LDL/HDL ratio 1.10 <3.56 Not Available [facility] ([employer] [facility]) [address], [place], [address], 12/14/2018 18:35:12 12/14/19 19 12/14/2018 lipid panel , serum LDL cholesterol 54 mg/dL <100 Not Available [facility] ([facility]) [address], [place], [address], 12/14/2018 18:35:12 12/14/19 19 12/14/2018 lipid panel , serum VLDL, calculated 26 mg/dL 7-[address] [facility] ([facility]) [address], [place], [address], 12/14/2018 18:35:12 12/14/19 19 12/14/2018 lipid panel , serum non-HDL cholesterol 80 mg/dL <130 Not Available [facility] ([facility]) [address], [place], [address], 12/14/2018 18:35:12 12/14/19 19 12/14/2018 CBC WBC 5.51 x10(3 )/uL 3.66-1 0.60 Not Available [facility] ([facility]) [address], [place], [address], 12/14/2018 18:35:12 12/14/19 19 12/14/2018 CBC RBC 5.50 x10(6 )/uL 3.94-5 .76 Not Available [facility] ([facility]) [address], [place], [address], 12/14/2018 18:35:12 12/14/19 19 12/14/2018 CBC HGB 15.1 gm/dL 12.0-1 6.9 Not Available [facility] ([facility]) [address], [place], [address], 12/14/2018 18:35:12 12/14/19 19 12/14/2018 CBC HCT 45.9 % 34.6-4 9.6 Not Available [facility] [place] [facility] ([facility]) [address], [place], [address], 12/14/2018 18:35:12 12/14/19 19 12/14/2018 CBC MCV 83.5 fL 78.0-9 8.0 Not Available [facility] [place] [facility] ([facility]) [address], [place], [address], 12/14/2018 18:35:12 12/14/19 19 12/14/2018 CBC MCH 27.5 pg 25.8-3 3.1 Not Available [facility] [place] [facility] ([facility]) [address], [place], [address], 12/14/2018 18:35:12 12/14/19 19 12/14/2018 CBC MCHC 32.9 gm/dL 31.7-3 5.3 Not Available [facility] ([facility] [address], [place], [address], 12/14/2018 18:35:12 12/14/19 19 12/14/2018 CBC RDW 13.1 % 12.2-1 5.3 Not Available [facility] ([facility]) [address], [place], [address], 12/14/2018 18:35:12 12/14/19 19 12/14/2018 CBC polys 52.0 % 34.9-7 5.3 Not Available [facility] ([facility]) [address], [place], [address], 12/14/2018 18:35:12 12/14/19 19 12/14/2018 CBC lymphs 33.6 % 14.0-5 1.8 Not Available [facility] ([facility]) [address], [place], [address], 12/14/2018 18:35:12 12/14/19 19 12/14/2018 CBC monos 12.2 % 3.5-13 .2 Not Available [facility] ([facility] [address], [place], [address], 12/14/2018 18:35:12 12/14/19 19 12/14/2018 CBC eos 1.5 % 0.0-6. 2 Not Available [facility] ([facility]) [address], [place], [address], 12/14/2018 18:35:12 12/14/19 19 12/14/2018 CBC basos 0.5 % 0.0-1. 0 Not Available [facility] ([facility]) [address], [place], [address], 12/14/2018 18:35:12 12/14/19 19 12/14/2018 CBC immature granulocytes 0.2 % 0.0-1. 0 Not Available [facility] ([facility]) [address], [place], [address], 12/14/2018 18:35:12 12/14/19 19 12/14/2018 CBC platelet count 233 x10(3 )/uL 140-42 5 Not Available [facility] ([facility]) [address], [place], [address], 12/14/2018 18:35:12 12/14/19 19 12/14/2018 CBC MPV 10.1 fL 8.6-12 .1 Not Available [facility] ([facility]) [address], [place], [address], 12/14/2018 18:35:12 12/14/19 19 12/14/2018 TSH, serum or plasm a TSH 0.920 uIU/m L 0.178- 4.530 Not Available [facility] ([facility]) [address], [place], [address], 12/14/2018 18:35:13 12/14/19 19 12/14/2018 CMP, serum or plasm a total protein 7.5 g/dL 5.9-8. 4 Not Available [facility] ([facility]) [address], [place], [address], 12/14/2018 18:35:13 12/14/19 19 12/14/2018 CMP, serum or plasm a albumin 5.0 g/dL 3.5-5. 2 Not Available [facility] ([facility]) [address], [place], [address], 12/14/2018 18:35:13 12/14/19 19 12/14/2018 CMP, serum or plasm a globulin 2.5 g/dL 1.7-3. 7 Not Available [facility] ([facility]) [address], [place], [address], 12/14/2018 18:35:13 12/14/19 19 12/14/2018 CMP, serum or plasm a A/G ratio 2.0 1.1-2. 9 Not Available [facility] ([facility]) [address], [place], [address], 12/14/2018 18:35:13 12/14/19 19 12/14/2018 CMP, serum or plasm a sodium 142 mmol/ L 136-14 5 Not Available [facility] ([facility]) [address], [place], [address], 12/14/2018 18:35:13 12/14/19 19 12/14/2018 CMP, serum or plasm a potassium 4.0 mmol/ L 3.6-5. 6 Not Available [facility] ([facility]) [address], [place], [address], 12/14/2018 18:35:13 12/14/19 19 12/14/2018 CMP, serum or plasm a chloride 100 mmol/ L 96-108 Not Available [facility] ([facility]) [address], [place], [address], 12/14/2018 18:35:13 12/14/19 19 12/14/2018 CMP, serum or plasm a CO2 26 mmol/ L 22-29 Not Available [facility] ([facility]) [address], [place], [address], 12/14/2018 18:35:13 12/14/19 19 12/14/2018 CMP, serum or plasm a BUN 14 mg/dL 6-20 Not Available [facility] ([facility]) [address], [place], [address], 12/14/2018 18:35:13 12/14/19 19 12/14/2018 CMP, serum or plasm a creatinine 0.79 mg/dL 0.67-1 .31 Not Available [facility] ([facility]) [address], [place], [address], 12/14/2018 18:35:13 12/14/19 19 12/14/2018 CMP, serum or plasm a E-GFR 126 mL/mi n >or=60 Not Available [facility] ([facility]) [address], [place], [address], 12/14/2018 18:35:13 12/14/19 19 12/14/2018 CMP, serum or plasm a E-GFR, 146 mL/mi n >or=60 Not Available [facility] ([facility]) [address], [place], [address], 12/14/2018 18:35:13 12/14/19 19 12/14/2018 CMP, serum or plasm a BUN/creat ratio 17.7 10.0-2 8.0 Not Available [facility] ([facility]) [address], [place], [address], 12/14/2018 18:35:13 12/14/19 19 12/14/2018 CMP, serum or plasm a calcium 9.8 mg/dL 8.6-10 .4 Not Available [facility] ([facility]) [address], [place], [address], 12/14/2018 18:35:13 12/14/19 19 12/14/2018 CMP, serum or plasm a bilirubin, total 0.8 mg/dL <1.2 Not Available [facility] ([facility]) [address], [place], [address], 12/14/2018 18:35:13 12/14/19 19 12/14/2018 CMP, serum or plasm a alk phos 55 U/L 40-156 Not Available [facility] ([facility]) [address], [place], [address], 12/14/2018 18:35:13 12/14/19 19 12/14/2018 CMP, serum or plasm a AST 22 U/L <40 Not Available [facility] ([facility]) [address], [place], [address], 12/14/2018 18:35:13 12/14/19 19 12/14/2018 CMP, serum or plasm a ALT 38 U/L <41 Not Available [facility] ([facility]) [address], [place], [address], 12/14/2018 18:35:13 12/14/19 19 12/14/2018 CMP, serum or plasm a glucose 103 mg/dL 70-99 high Not Available [facility] ([facility]) [address], [place], [address], 12/14/2018 18:35:13 09/15/20 19 09/16/2019 lipid panel , serum cholesterol, total 140 mg/dL <200 normal Not Available [facility] [address], [place], [address], 09/16/2019 08:49:48 09/15/20 19 09/16/2019 lipid panel , serum HDL cholesterol 61 mg/dL >40 normal Not Available [facility] [address], [place], [address], 09/16/2019 08:49:48 09/15/2009/16/2019 lipid panel , serum triglyceride s 98 mg/dL <150 normal Not Available [facility] [address], [place], [address], 09/16/2019 08:49:48 09/15/2009/16/2019 lipid panel , serum LDL-choleste rol 61 mg/dL _(nelson c) normal Refer ence range : <100 Kings able range <100 mg/dL for prima ry preve ntion ; <70 mg/dL for patie nts with CHD or diabe tic patie nts with > or = 2 CHD risk facto rs. LDL-C is now calcu lated using the Annalee n-Hop kins calcu diana n, which is a valid ated novel amita millan accur acy than the Fried gi equat ion in the estim ation of LDL-C . Annalee n SS et al. DORON. 2013; 310(1 9): 2061- 2068 (http ://ed ucati on.Qu estDi GradeBeams. com/f aq/FA Q164) Not Available [facility] [place] [facility] [address], [place], [address], 09/16/2019 08:49:48 09/15/2009/16/2019 lipid panel , serum chol/HDLC ratio 2.3 (calc ) <5.0 normal Not Available [facility] [place] [facility] [address], [place], [address], 09/16/2019 08:49:48 09/15/2009/16/2019 lipid panel , serum non HDL cholesterol 79 mg/dL _(nelson c) <130 normal For patie nts with diabe kanika plus 1 major ASCVD risk facto r, treat ing to a non-H DL-C goal of <100 mg/dL (LDL- C of <70 mg/dL ) is consi dered a thera peuti c optio n. Not Available [facility] [place] [facility] [address], [place], [address], 09/16/2019 08:49:48 09/15/2009/16/2019 CMP, serum or plasm a glucose 101 mg/dL 65-99 high Fasti ng refer ence inter astrid For someo ne witho ut known diabe kanika, a gluco se value betwe en 100 and 125 mg/dL is consi stent with predi abete s and shoul d be confi rmed with a follo w-up test. Not Available [facility] [place] [facility] [address], [place], [address], 09/16/2019 08:49:49 09/15/20 19 09/16/2019 CMP, serum or plasm a urea nitrogen (BUN) 16 mg/dL 7-25 normal Not Available [facility] [address] [place], [address], 09/16/2019 08:49:49 09/15/20 19 09/16/2019 CMP, serum or plasm a creatinine 0.91 mg/dL 0.60-1 .35 normal Not Available [facility] [address], [place], [address], 09/16/2019 08:49:49 09/15/2009/16/2019 CMP, serum or plasm a eGFR non-afr. palestinian 117 mL/mi n/1.7 3m2 > or = 60 normal Not Available [facility] [address], [place], [address], 09/16/2019 08:49:49 09/15/2009/16/2019 CMP, serum or plasm a eGFR 135 mL/mi n/1.7 3m2 > or = 60 normal Not Available [facility] [address], [place], [address], 09/16/2019 08:49:49 09/15/2009/16/2019 CMP, serum or plasm a BUN/creatini ne ratio NOT APPLIC ABLE (calc ) 6-22 Not Available [facility] [address], [place], [address], 09/16/2019 08:49:49 09/15/2009/16/2019 CMP, serum or plasm a sodium 141 mmol/ L 135-14 6 normal Not Available [facility] [address], [place], [address], 09/16/2019 08:49:49 09/15/20 19 09/16/2019 CMP, serum or plasm a potassium 4.0 mmol/ L 3.5-5. 3 normal Not Available [facility] [address], [place], [address], 09/16/2019 08:49:49 09/15/20 19 09/16/2019 CMP, serum or plasm a chloride 102 mmol/ L 98-110 normal Not Available [facility] [address], [place], [address], 09/16/2019 08:49:49 09/15/20 19 09/16/2019 CMP, serum or plasm a carbon dioxide 25 mmol/ L 20-32 normal Not Available [facility] [address], [place], [address], 09/16/2019 08:49:49 09/15/20 19 09/16/2019 CMP, serum or plasm a calcium 9.7 mg/dL 8.6-10 .3 normal Not Available [facility] [address], [place], [address], 09/16/2019 08:49:49 09/15/2009/16/2019 CMP, serum or plasm a protein, total 7.7 g/dL 6.1-8. 1 normal Not Available [facility] [address], [place], [address], 09/16/2019 08:49:49 09/15/2009/16/2019 CMP, serum or plasm a albumin 5.0 g/dL 3.6-5. 1 normal Not Available [facility] [address], [place], [address], 09/16/2019 08:49:49 09/15/2009/16/2019 CMP, serum or plasm a globulin 2.7 g/dL_ (calc ) 1.9-3. 7 normal Not Available [facility] [address], [place], [address], 09/16/2019 08:49:49 09/15/20 19 09/16/2019 CMP, serum or plasm a albumin/glob ulin ratio 1.9 (calc ) 1.0-2. 5 normal Not Available [employer] [facility] [address], [place], [address], 09/16/2019 08:49:49 09/15/20 19 09/16/2019 CMP, serum or plasm a bilirubin, total 0.7 mg/dL 0.2-1. 2 normal Not Available [facility] [address], [place], [address], 09/16/2019 08:49:49 09/15/2009/16/2019 CMP, serum or plasm a alkaline phosphatase 57 U/L 40-115 normal Not Available [facility] [address], [place], [address], 09/16/2019 08:49:49 09/15/20 19 09/16/2019 CMP, serum or plasm a AST 66 U/L 10-40 high Not Available [employer] [facility] [address], [place], [address], 09/16/2019 08:49:49 09/15/20 19 09/16/2019 CMP, serum or plasm a ALT 40 U/L 9-46 normal Not Available [employer] [facility] [address], [place], [address], 09/16/2019 08:49:49 09/15/2009/16/2019 TSH, serum or plasm a TSH 4.19 mIU/L 0.40-4 .50 normal Not Available [facility] [address], [place], [address], 09/16/2019 08:49:50 09/15/20 19 09/16/2019 CBC w/ auto diff white blood cell count 6.6 thous and/u L 3.8-10 .8 normal Not Available [facility] [place] [facility] [address], [place], [address], 09/16/2019 08:49:50 09/15/2009/16/2019 CBC w/ auto diff red blood cell count 5.43 kosta on/uL 4.20-5 .80 normal Not Available [facility] [address], [place], [address], 09/16/2019 08:49:50 09/15/2009/16/2019 CBC w/ auto diff hemoglobin 15.2 g/dL 13.2-1 7.1 normal Not Available [facility] [address], [place], [address], 09/16/2019 08:49:50 09/15/2009/16/2019 CBC w/ auto diff hematocrit 44.6 % 38.5-5 0.0 normal Not Available [facility] [address], [place], [address], 09/16/2019 08:49:50 09/15/2009/16/2019 CBC w/ auto diff MCV 82.1 fL 80.0-1 00.0 normal Not Available [facility] [address], [place], [address], 09/16/2019 08:49:50 09/15/2009/16/2019 CBC w/ auto diff MCH 28.0 pg 27.0-3 3.0 normal Not Available [facility] [address], [place], [address], 09/16/2019 08:49:50 09/15/2009/16/2019 CBC w/ auto diff MCHC 34.1 g/dL 32.0-3 6.0 normal Not Available [facility] [address], [place], [address], 09/16/2019 08:49:50 09/15/20 19 09/16/2019 CBC w/ auto diff RDW 12.8 % 11.0-1 5.0 normal Not Available [facility] [place] [facility] [address], [place], [address], 09/16/2019 08:49:50 09/15/20 19 09/16/2019 CBC w/ auto diff platelet count 290 thous and/u L 140-40 0 normal Not Available [facility] [place] [facility] [address], [place], [address], 09/16/2019 08:49:50 09/15/2009/16/2019 CBC w/ auto diff MPV 9.6 fL 7.5-12 .5 normal Not Available [facility] [place] [facility] [address], [place], [address], 09/16/2019 08:49:50 09/15/2009/16/2019 CBC w/ auto diff absolute neutrophils 3366 cells /uL 1500-7 800 normal Not Available [facility] [place] [facility] [address], [place], [address], 09/16/2019 08:49:50 09/15/20 19 09/16/2019 CBC w/ auto diff absolute lymphocytes 2416 cells /uL 850-39 00 normal Not Available [facility] [place] [facility] [address], [place], [address], 09/16/2019 08:49:50 09/15/2009/16/2019 CBC w/ auto diff absolute monocytes 667 cells /uL 200-95 0 normal Not Available [facility] [place] [facility] [address], [place], [address], 09/16/2019 08:49:50 09/15/2009/16/2019 CBC w/ auto diff absolute eosinophils 99 cells /uL 15-500 normal Not Available [facility] [address], [place], [address], 09/16/2019 08:49:50 09/15/20 19 09/16/2019 CBC w/ auto diff absolute basophils 53 cells /uL 0-200 normal Not Available [facility] [address], [place], [address], 09/16/2019 08:49:50 09/15/2009/16/2019 CBC w/ auto diff neutrophils 51 % normal Not Available [facility] [address], [place], [address], 09/16/2019 08:49:50 09/15/2009/16/2019 CBC w/ auto diff lymphocytes 36.6 % normal Not Available [facility] [address], [place], [address], 09/16/2019 08:49:50 09/15/2009/16/2019 CBC w/ auto diff monocytes 10.1 % normal Not Available [facility] [address], [place], [address], 09/16/2019 08:49:50 09/15/2009/16/2019 CBC w/ auto diff eosinophils 1.5 % normal Not Available [facility] [address], [place], [address], 09/16/2019 08:49:50 09/15/2009/16/2019 CBC w/ auto diff basophils 0.8 % normal Not Available [facility] [address], [place], [address], 09/16/2019 08:49:50 Result Notes None recorded. 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 Entered By: Sadnhya castro Signed By: Glenda Joya Not Available [facility] 06:12:[address] Concept Active 2016 Entered By: Sandhya castro Signed By: Glenda Joya Not Available [facility] 8 06:12:53 Adult health examination Active 2016 Entered By: Glenda Joya Signed By: Glenda Joya Not Available [facility] 8 06:12:53 Hypothyroid ism 34752500 Active 2016 Entered By: Glenda Joya Signed By: Glenda Joya Not Available [facility] 8 06:12:53 Body mass index 30+ - obesity 155518301 Active 2016 Entered By: Glenda Joya Signed By: Glenda Joya Not Available [facility] 8 06:12:53 Problem Notes None recorded. Medical Equipment None Reported. Allergies No known drug allergies Medications Name Sig Start Date Stop Date Status Note LastModified by Organization Details LastModified Time cephalexin 500 mg capsule 09/15 completed Not Available Not Available Not Available clotrimazol e-betametha sone 1 %-0.05 % topical cream APPLY TO THE AFFECTED AND SURROUNDI NG AREAS OF SKIN BY TOPICAL ROUTE 2 TIMES PER DAY IN THE MORNING AND EVENING FOR 2 WEEKS active Not Available Not Available No t Available levothyroxi ne 150 mcg tablet TAKE ONE TABLET BY MOUTH DAILY ON EMPTY STOMACH active Not Available Not Available No t Available Vitals Date Recorded Respiratory rate Body weight Body temperature Systolic blood pressure Diastolic blood pressure Provider Name and Address Organization Details Last Updated DateTime 9 18 /min 695075. 1 g 97.8 [degF] 120 mm[Hg] 78 mm[Hg] Royer Mckeon [facility] 9 08:07:28 Date Recorded Body height Body mass index (BMI) Provider Name and Address Organization Details Last Updated DateTime 12/13/2018 182.88 cm 30.2 kg/m2 Ernie Ley [facility] 12/13/2018 08:21:37 Date Recorded Body height Respiratory rate Body mass index (BMI) Body weight Heart rate Body temperature Oxygen saturation Oxygen saturation in Arterial blood by Pulse oximetry Systolic blood pressure Diastolic blood pressure Provider Name and Address Organization Details Last Updated DateTime 9 182.88 cm 18 /min 29.7 kg/m2 30732.7 3 g 97.9 /min 18 [degF] 98 % 98 % 122 mm[Hg] 74 mm[Hg] Cynthia Heredia [facility] 9 08:29:53 Social History Question Answer Notes LastModified by Organizat ion Details LastModified Time Tobacco Smoking Status Never Smoker Cynthia Heredia [facility] 09/15/2019 08:21:58 What Is Your Level Of Caffeine Consumption? Occasional Information not available 09/15/2019 How Much Tobacco Do You Chew? None [email or web address] Information not available 09/15/2019 Education 4 Year College [email or web address] Informat ion not available 09/15/2019 What Is Your Occupation? 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 Single Level Home Information not available 09/15/2019 Live Alone Or With Others? With Others [email or web address] Information not available 09/15/2019 Obese No [email or web address] Information not available 09/15/2019 Overweight No [email or web address] Information not available 09/15/2019 Are You Sexually Active? Yes [email or web address] Information not available 09/15/2019 Do You Or Have You Ever Used Smokeless Tobacco? Never Used Smokeless Tobacco [email or web address] Information not available 09/15/2019 How Much Tobacco Do You Smoke? No [email or web address] Information not available 09/15/2019 General Stress Level Medium [email or web address] Information not available 09/15/2019 How Many Years Have You Smoked Tobacco? 0 [email or web address] Information not available 09/15/2019 Sex: Unknown Functional Status Question Answer Note LastModified by Organizat ion Details LastModified Time What is your exercise level? Occasional [email or web address] Information not available 09/15/2019 Mental Status None recorded. Family History Relationship Description Onset Age of this Age Resolved Age Notes LastModified by Organization Details LastModified Time Father Disorder of thyroid gland [email or web address] Not available 08:21:29 Mother Malignant tumor of breast [email or web address] Not available 08:21:35 Notes:02/27/2017: Father (bi ol.): Has Family History of Thyroid Disorder Mother (biol.): Has Family History of Breast Cancer, Has Family History of Other Cancer, Has Family History of Thyroid Disorder Mother-Lymphoma, PGF-Prostate CA PGF: Has Family History of Other Cancer Medical History Condition Response Coronary Artery Disease N Gout N Other N Kidney Stones N Blood Diseases N Hyperthyroidism Y Breast Cancer N Blood Transfusion N Hypothyroidism N Lung Disease N Depression Y COPD N Anxiety Disorder Y Meniere's disease N Muscle, Joint, or Bone Problems N Obesity N Vision or Eye Problems N Arthritis N Infertility N Polyps N Cancer N Stroke N Varicosities N Endometriosis N Bladder or Kidney Problems N High Cholesterol N Liver Disease N Fibromyalgia N Headaches N Kidney Disease N Allergies/Hayfever N Ear or Hearing Problems N Hospitalizations N Thyroid Problems N Anemia N Mental Illness N Diabetes N Ovarian Cancer N Seizures/Epilepsy N Tuberculosis N Congestive Heart Failure (CHF) N Eczema N Diverticulitis N Asthma N Reflux/GERD N Hepatitis N Heart Disease N Pulmonary Embolism N Hypertension N Osteoporosis N Thrombophilias N Immunizations Vaccine Type Date Status Note Provider Nam e and Address Organization Details Recorded Time Hep B, unspecified formulation 5 completed Royer Mckeon [facility] 12/13/2018 08:06:04 DTaP 5 completed Royer Mckeon [facility] 12/13/2018 08:06:04 Hib (PRP-OMP) 5 [facility] Royer Mckeon [facility] 12/13/2018 08:06:04 DTaP 4 completed Royer Mckeon [facility] 12/13/2018 08:06:04 Hep B, unspecified formulation 4 completed Royer Mckeon [facility] 12/13/2018 08:06:04 Hib (PRP-OMP) 4 [facility] Royer Mckeon [facility] 12/13/2018 08:06:04 IPV 4 [facility] Royer Mckeon [facility] 12/13/2018 08:06:04 meningococcal MCV4, unspecified formulation 7 wen Mckeon [facility] 12/13/2018 08:06:04 MMR 5 completed Royer Mckeon [facility] 12/13/2018 08:06:04 MMR 9 completed Royer Mckeon [facility] 12/13/2018 08:06:04 Influenza, split virus, trivalent, preservative 8 completed Royer Mckeon [facility] 12/13/2018 08:06:04 DTaP 9 completed Royer Mckeon [facility] 12/13/2018 08:06:04 Td (adult), 2 Lf tetanus toxoid, preservative free, adsorbed 6 completed Royer Mckeon [facility] 12/13/2018 08:06:04 IPV 9 completed Royer Mckeon [facility] 12/13/2018 08:06:04 Hep B, unspecified formulation 4 completed Royer Mckeon [facility] 12/13/2018 08:06:04 Hib (PRP-OMP) 4 completed Royer Mckeon [facility] 12/13/2018 08:06:04 IPV 5 completed Royer Mckeon [facility] 12/13/2018 08:06:04 IPV 4 completed Royer Mckeon [facility] 12/13/2018 08:06:04 meningococcal MCV4, unspecified formulation 1 completed Royer Mckeon [facility] 12/13/2018 08:06:04 DTaP 4 completed Royer Mckeon [facility] 12/13/2018 08:06:04 Hib (PRP-OMP) 5 completed Royer Mckeon [facility] 12/13/2018 08:06:04 DTaP 6 completed Royer Mckeon null, [facility] 12/13/2018 08:06:05 [facility] 9 [facility]10 Past Encounters Encounter ID Performer Location Encounter Start Date Encounter Closed Date Diagnosis/Indication Diagnosis SNOMED-CT Code Diagnosis ICD10 Code Diagnosis Note [id number] Ernie Ley Main Office [address] [place] [address] 12/13/2018 07:58:22 12/13/2018 08:46:17 Hypothyroidism 29794754 E03.9 Adult heal th examination 710299049 Z00.00 Body mass index 30+ - obesity 703727443 Z68.30 BMI 30.2 Active or passive immunization 643194361 Z23 [id number] Mary Greenberg Main Office [address] [place] [address] 09/15/2019 08:18:48 09/15/2019 08:51:53 Hypothyroidism 12898422 E03.9 On levothyrox ine 150 mcg, continue current treatment. Blood drawn today. Recommend appointmen t every 6 months to monitor. Tinea corporis 56968032 B35.4 Treatment options and supportive measure discussed. Health Concerns Section Related Observation LastModified by Organization Detai ls LastModified Time None Recorded Concern Status LastModified by Organization Details LastModified Time None Recorded Advance Directives Directive None Recorded Payers Encounter Date Sequence Insurance Name Policy Number Policy Becker Covered Member ID Becker Member ID Guarantor Name 12/13/2018 1 [facility] [id number] Lon Oliva [id number] Lon Oliva 09/15/2019 1 [facility] [id number] Lonmini Oliva [id number] 2 Lon Lanceparveen Notes Date Note Type Note Provider Name and Address Organization Details Recorded Time 12/13/2018 text/html Annual WellnessReported bypatient.Diet and Nutrition:healthy diet Fracture Risk:no history of fractures; no recent explained fracture; no sudden unexplained fractures; no previous musculoskeletal injuries Physical Activity:exercises on a regular basis; recent increase in physical activity; good physical condition Additional Lifestyle Factors:no tobacco use; no alcohol intake; stopped drinking alcohol Depression Risk:never feels sad, empty, or tearful; no loss of interest in activities; no significant changes in weight; no sleep disturbances or insomnia; no agitation; no loss of energy; no feelings of worthlessness or guilt; no thoughts of suicide; no history of depression; no history of mood disorders Hearing:no loss of hearing Vision:no vision problems I saw patient today for annual preventive care and physical exam. PMH, PSH, FH, SH & Meds reviewed. 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 Has not had this season's flu shot and doesn't want it. Would like Tdap shot. No tobacco use. Patient is fasting, will do blood work. Ernie Jil nicole [facility] 12/13/2018 08:48:12 09/15/2019 text/html Patient presents today for 9 month follow up visit, requests blood draw. Declines having STD labs drawn today. He [place] in [place] where [place] is [place] PCP. He needs to go to urgent care or ER for any care (states the urgent care does not take his insurance, so he ends up going to ER for anything). 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 He was seen in ER in [place] several weeks ago for fungal infection in his left armpit. He has been applying lotrimin and cortizone which helped and rash resolved. He then had recurrence of the rash in his armpit and in his groin as well. He has been applying the creams again the the rash in groin has resolved and is almost resolved in his armpit. Mary rivera [facility] 09/15/2019 08:58:47
== END 2024-11-12 09:59 | disposition home or self-care (01) ==
LOC: HO.HMGCX 09:58
PROVIDERS: PCP Nurse Practitioner Family; Visit Provider Nurse Practitioner Family
DX: N50.3 Cyst of epididymis (principal)
CPT/HCPCS: 76870

== ENCOUNTER → 2024-11-12 09:58 | Outpatient (BNV) | payer BC, SELFPAY | PROVIDERS: PCP Nurse Practitioner Family; Visit Provider Radiology Diagnostic Radiology | DX: N50.3 Cyst of epididymis (principal) | CPT/HCPCS: 76870 ==

== ENCOUNTER 2024-11-27 09:27 | Outpatient (AMB) | payer BC, SELFPAY ==
--- NOTE | 2024-11-27 09:38 | A.OFFVIS_ITS ---
Intake Visit Reasons: 6m/US(set) Intake Note: Patient presents today for follow up visit on: hydrocele and ultrasound results Imaging Completed: 11/12/24 Urology Medications: none Blood Thinner: none Machined Parts Quality Inspector Required: No Accompanied by: Self / Same As Patient Allergies No Known Allergies Allergy (Verified 11/27/24 09:54) Medication List - Last Reconciled 11/27/24 by SAVANNAH Mederos cholecalciferol (vitamin D3) 50 mcg PO DAILY levothyroxine 150 mcg PO DAILY 90 days HPI Comments Details: Lon is a very pleasant 29-year-old male patient of Dr. Noriega. He has a past medical history of ADD, anxiety, hypothyroidism, and palpitations. He presents to the office today for follow-up of his left-sided hydrocele. In discussion with the patient today reports to be doing and feeling well. He denies having had any bothersome urinary issues or concerns since his last office visit here. Recent scrotal imaging results reviewed with the patient today 11/18 4 mm simple left epididymal cyst not requiring further follow-up per radiology report. He reports noting intermittent episodes of discomfort at the end of the day however feels this has been manageable independently. He denies any urinary issues. When asked he denies urinary urgency, urinary frequency, incontinence, nocturia, hematuria, dysuria, foul smelling urine, changes to urinary stream, flank pain, fever, and or chills. He is happy with his current voiding parameters. In office urinalysis results reviewed with the patient today. Patient otherwise offers no other issues or concerns at this time. [facility] Medical History Arrhythmia Fatty liver Hypertriglyceridemia Depression Hypothyroid Anxiety ADD (attention deficit disorder) Heart palpitations Surgical History Hx of circumcision History of placement of ear tubes [place] teeth extracted Family History Father Thyroid disease Mother Thyroid disease Lymphoma Melanoma Breast cancer Social History Housing: Condominium Patient Tobacco Use Status: Never used Tobacco e-Cigarette/Vaping Use: Currently Using Second Hand Smoke Exposure: No service: No Current occupational status: employed Current occupation: [employer] Current occupational exposures/hazards: Yes Cognitive needs: No Hearing needs: No Vision needs: No Review of Systems Const Reports as per HPI Eyes Reports no additional complaints ENT Reports no additional complaints Card Reports as per HPI Resp Reports no additional complaints GI Reports no additional complaints Reports as per HPI Musc Reports no additional complaints Neuro Reports as per HPI Psych Reports as per HPI Endo Reports no additional complaints Physical Exam Const General: cooperative, healthy appearing, comfortable, no acute distress, well developed, alert and awake Orientation/consciousness: patient oriented x3 Limitations: no limitations HEENT Head: Yes normal to inspection, Yes normocephalic and Yes atraumatic Ears: hearing grossly normal bilaterally Eyes General: appearance normal, both eyes and all related structures Neck Neck: Yes normal visual inspection and Yes trachea midline Chest Chest palpation & inspection: normal inspection of the chest Resp Effort & Inspection: normal respiratory effort and able to speak in complete sentences Cardio Rate: regular rate GI Inspection: Yes normal to inspection General: Yes no CVA tenderness Penis: normal penis and circumcised Back/Spine/Pelvis Back: no CVA tenderness Skin General skin exam: no rashes or lesions noted Neuro General: patient oriented x3 Extrem General: Yes normal to inspection Psych Appearance: grossly normal and well kempt Mental Status: mental status grossly normal Speech and movement: Normal speech and movement present and Clear speech present Affect: normal affect Attitude: cooperative Thought process: Normal thought process present Thought content: Normal thought content present Insight: Good insight present (Psych) Judgement: Good judgement present (Psych) Results AMB Urinalysis, Automated UA Leukoctes 0 Michaela/uL Last Edit by Juany Gandhi on 11/27/24 10:05 UA Nitrite Last Edit by Juany Gandhi on 11/27/24 10:05 UA Urobilinogen 0.2 mg/dL Last Edit by Juany Gandhi on 11/27/24 10:05 UA Protein 0 mg/dL Last Edit by Juany Gandhi on 11/27/24 10:05 UA pH 6.5 Last Edit by Juany Gandhi on 11/27/24 10:05 UA Blood 0 Rigoberto/uL Last Edit by Juany Gandhi on 11/27/24 10:05 UA Specific [place] 1.015 Last Edit by Juany Gandhi on 11/27/24 10:05 UA Ketone Negative Last Edit by Juany Gandhi on 11/27/24 10:05 UA Bilirubin 0 mg/dL Last Edit by Juany Gandhi on 11/27/24 10:05 UA Glucose 0 mg/dL Last Edit by Juany Gandhi on 11/27/24 10:05 Results Reviewed Results Reviewed: Laboratory Last Values Urine pH (Auto) 6.5 11/27/24 09:50 Specific [place] (Auto) 1.015 11/27/24 09:50 Urine Protein (Auto) 0 mg/dL 11/27/24 09:50 Glucose (UA)(Auto) 0 mg/dL 11/27/24 09:50 Urine Ketones (Auto) Negative 11/27/24 09:50 Urine Blood (Auto) 0 Rigoberto/uL 11/27/24 09:50 Urine Bilirubin (Auto) 0 mg/dL 11/27/24 09:50 Urine Urobilinogen (Auto) 0.2 mg/dL 11/27/24 09:50 Leukocyte Esterase (Auto) 0 Michaela/uL 11/27/24 09:50 Date of Service: 11/12/24 US Scrotum with Doppler Comparison: None Findings: Right testicle normal size and echotexture, 5 x 2 x 3.8 cm. Left testicle normal size and echotexture, 5 x 2.2 x 3.4 cm. Normal color flow and arterial/venous spectral tracing of both testicles. No testicular lesion. Epididymides are unremarkable, except for a simple 4 mm left-sided epididymal cyst. No hydroceles. IMPRESSION: 4 mm simple left epididymal cyst not requiring further follow-up/workup. Assessment & Plan Assessment & Plan (1) Hydrocele: Code(s): N43.3 - Hydrocele, unspecified Category: Medical Plan In office urinalysis results reviewed with the patient today. Recent scrotal ultrasound results reviewed with the patient today; as noted above. Reassurance provided. Discussed at length potential causes for hydroceles and epididymal head cysts. All questions were answered Patient reports to be happy with current voiding parameters. Follow-up PRN Orders: Orders AMB Urinalysis Automated Today Z13.9 - Encounter for screening, unspecified Patient Instructions: The patient had an opportunity to ask questions regarding the treatment plan. All questions were answered. Physical exam, labs, and imaging were discussed and reviewed in detail. As well as risks, benefits, and discussion of treatment choices. No major barriers to understanding were identified. The patient expressed understanding and agreement with the above treatment plan. The patient was made aware they should contact our office by phone for worsening of their current condition, the appearance of new symptoms, or with any questions or concerns. Compliance is encouraged with any medications and follow up testing that is ordered. It is a privilege to be allowed the opportunity to participate in? your urological care.? Again, if you have any questions or concerns If you have any questions or concerns please do not hesitate to contact me. The office is [phone]. This note is constructed using voice recognition software. While every effort has been made to ensure accuracy position classification specialist errors may have been included. Yours sincerely, SAVANNAH Mederos Coding Level of Care Code Est Pt Level 3 (43938) Diagnoses Hydrocele N43.3
--- OUTSIDE RECORDS SUMMARY | 2024-11-27 10:45 | XMS_ITS | Data Portability ---
Author Organization [place] - [employer], Main Office Address [address] [place] [address] Assessment No assessment recorded. Plan of Treatment Reminders Order Date Submit Date Provider Last Modified By Organization Details Last Modified Time Details Appointments None recorded. Lab lipid panel, serum 2018 019 [facility], [address], [address], [place], [address], 9 08:49:48 CMP, serum or plasma 2018 019 [facility], [address], [address], [place], [address], 9 08:49:49 TSH, serum or plasma 2018 019 [facility], [address], [address], [place], [address], 9 08:49:50 CBC w/ auto diff 2018 019 [facility], [address], [address], [place], [address], 9 08:49:50 CBC w/ auto diff 2018 [...] 1 %-0.05 % topical cream 2018 INTERFACE [id number], [address] [place], [address], 9 08:50:47 levothyrox ine 150 mcg tablet 2018 019 INTERFACE [id number], [address] [place], [address], 9 08:50:47 levothyrox ine 150 mcg tablet 2018 019 INTERFACE [id number], [address] [place], [address], 9 08:27:42 Patient TargetsNo targets recorded. Patient Instructions Encounter Date Encounter Id Patient Instructions Last Modified By Organization Details Last Modified Time 12/13/2018 [id number] 1. F/U when possible. 2. Got Tdap shot today. 3. Will call with lab results. 4. Sent medication to [facility] on [address]. 5. Any questions, please call office. [email or web address] Not available 12/13/2018 08:36:50 09/15/2019 [id number] 1. Keep skin cool and dry - wear cotton materials and loose clothing 2. Blood draw done today, will contact you with results of your labs 3. 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 He will call office if he needs to be seen or if he changes plans and stay in [place] pearl Not available 09/15/2019 08:58:08 Reason for Referral None Reported. Results Created Date Observation Date Name Description Value Unit Range Abnormal Flag Note LastModifiedBy Organization Detail LastModifiedTime 03/22/12/14/2018 lipid panel , serum cholesterol 129 mg/dL <200 Not Available [facility] ([employer]) [address], [place], [address], 12/14/2018 18:35:12 12/14/19 19 12/14/2018 lipid panel , serum HDL chol., direct 49 mg/dL >40 Not Available [facility] ([employer]) [address], [place], [address], 12/14/2018 18:35:12 12/14/1912/14/2018 lipid panel , serum triglyceride s 132 mg/dL <150 Not Available [facility] ([employer]) [address], [place], [address], 12/14/2018 18:35:12 12/14/19 19 12/14/2018 lipid panel , serum HDL % of cholesterol 38 % >14 Evalu ation : BELOW AVERA GE RISK Not Available [facility] ([employer]) [address], [place], [address], 12/14/2018 18:35:12 12/14/19 19 12/14/2018 lipid panel , serum chol/HDL ratio 2.6 <7.4 Evalu ation : BELOW AVERA GE RISK Not Available [facility] ([employer] [facility]) [address], [place], [address], 12/14/2018 18:35:12 12/14/19 19 12/14/2018 lipid panel , serum LDL/HDL ratio 1.10 <3.56 Not Available [facility] ([employer] [facility]) [address], [place], [address], 12/14/2018 18:35:12 12/14/19 19 12/14/2018 lipid panel , serum LDL cholesterol 54 mg/dL <100 Not Available [facility] ([facility]) [address], [place], [address], 12/14/2018 18:35:12 12/14/19 19 12/14/2018 lipid panel , serum VLDL, calculated 26 mg/dL 7-32 Not Available [facility] ([facility]) [address], [place], [address], 12/14/2018 18:35:12 12/14/19 19 12/14/2018 lipid panel , serum non-HDL cholesterol 80 mg/dL <130 Not Available [facility] ([facility]) [address], [place], [address], 12/14/2018 18:35:12 12/14/19 19 12/14/2018 CBC WBC 5.51 x10(3 )/uL 3.66-1 0.60 Not Available [facility] ([facility]) [address], [place], [address], 12/14/2018 18:35:12 12/14/19 19 12/14/2018 CBC RBC 5.50 x10(6 )/uL 3.94-5 .76 Not Available [facility] ([facility]) [address], [place], [address], 12/14/2018 18:35:12 12/14/19 19 12/14/2018 CBC HGB 15.1 gm/dL 12.0-1 6.9 Not Available [facility] ([facility]) [address], [place], [address], 12/14/2018 18:35:12 12/14/19 19 12/14/2018 CBC HCT 45.9 % 34.6-4 9.6 Not Available [facility] ([facility]) [address], [place], [address], 12/14/2018 18:35:12 12/14/19 19 12/14/2018 CBC MCV 83.5 fL 78.0-9 8.0 Not Available [facility] ([facility]) [address], [place], [address], 12/14/2018 18:35:12 12/14/19 19 12/14/2018 CBC MCH 27.5 pg 25.8-3 3.1 Not Available [facility] ([facility]) [address], [place], [address], 12/14/2018 18:35:12 12/14/19 19 12/14/2018 CBC MCHC 32.9 gm/dL 31.7-3 5.3 Not Available [facility] ([facility]) [address], [place], [address], 12/14/2018 18:35:12 12/14/19 19 12/14/2018 CBC RDW 13.1 % 12.2-1 5.3 Not Available [facility] ([facility]) [address], [place], [address], 12/14/2018 18:35:12 12/14/19 19 12/14/2018 CBC polys 52.0 % 34.9-7 5.3 Not Available [facility] ([facility]) [address], [place], [address], 12/14/2018 18:35:12 12/14/19 19 12/14/2018 CBC lymphs 33.6 % 14.0-5 1.8 Not Available [facility] ([facility]) [address], [place], [address], 12/14/2018 18:35:12 12/14/19 19 12/14/2018 CBC monos 12.2 % 3.5-13 .2 Not Available [facility] ([facility]) [address], [place], [address], 12/14/2018 18:35:12 12/14/19 19 12/14/2018 CBC eos 1.5 % 0.0-6. 2 Not Available [facility] ([facility]) [address], [place], [address], 12/14/2018 18:35:12 12/14/19 19 12/14/2018 CBC basos 0.5 % 0.0-1. 0 Not Available [facility] ([facility]) [address], [place], [address], 12/14/2018 18:35:12 12/14/19 19 12/14/2018 CBC immature granulocytes 0.2 % 0.0-1. 0 Not Available [facility] ([facility]) [address], [place], [address], 12/14/2018 18:35:12 12/14/19 19 12/14/2018 CBC platelet count 233 x10(3 )/uL 140-42 5 Not Available [facility] ([facility]) [address], [place], [address], 12/14/2018 18:35:12 12/14/19 19 12/14/2018 CBC MPV 10.1 fL 8.6-12 .1 Not Available [facility] ([facility]) [address], [place], [address], 12/14/2018 18:35:12 12/14/19 19 12/14/2018 TSH, serum or plasm a TSH 0.920 uIU/m L 0.178- 4.530 Not Available [facility] ([facility]) [address], [place], [address], 12/14/2018 18:35:13 12/14/19 19 12/14/2018 CMP, serum or plasm a total protein 7.5 g/dL 5.9-8. 4 Not Available [facility] ([facility]) [address], [place], [address], 12/14/2018 18:35:13 12/14/19 19 12/14/2018 CMP, serum or plasm a albumin 5.0 g/dL 3.5-5. 2 Not Available [facility] ([facility]) [address], [place], [address], 12/14/2018 18:35:13 12/14/19 19 12/14/2018 CMP, serum or plasm a globulin 2.5 g/dL 1.7-3. 7 Not Available [facility] ([facility]) [address], [place], [address], 12/14/2018 18:35:13 12/14/19 19 12/14/2018 CMP, serum or plasm a A/G ratio 2.0 1.1-2. 9 Not Available [facility] ([facility]) [address], [place], [address], 12/14/2018 18:35:13 12/14/19 19 12/14/2018 CMP, serum or plasm a sodium 142 mmol/ L 136-14 5 Not Available [facility] ([facility]) [address], [place], [address], 12/14/2018 18:35:13 12/14/19 19 12/14/2018 CMP, serum or plasm a potassium 4.0 mmol/ L 3.6-5. 6 Not Available [facility] ([facility]) [address], [place], [address], 12/14/2018 18:35:13 12/14/19 19 12/14/2018 CMP, serum or plasm a chloride 100 mmol/ L 96-108 Not Available [facility] ([facility]) [address], [place], [address], 12/14/2018 18:35:13 12/14/19 19 12/14/2018 CMP, serum or plasm a CO2 26 mmol/ L 22-29 Not Available [facility] ([facility]) [address], [place], [address], 12/14/2018 18:35:13 12/14/19 19 12/14/2018 CMP, serum or plasm a BUN 14 mg/dL 6-20 Not Available [facility] ([facility]) [address], [place], [address], 12/14/2018 18:35:13 12/14/19 19 12/14/2018 CMP, serum or plasm a creatinine 0.79 mg/dL 0.67-1 .31 Not Available [facility] ([facility]) [address], [place], [address], 12/14/2018 18:35:13 12/14/19 19 12/14/2018 CMP, serum or plasm a E-GFR 126 mL/mi n >or=60 Not Available [facility] ([facility]) [address], [place], [address], 12/14/2018 18:35:13 12/14/19 19 12/14/2018 CMP, serum or plasm a E-GFR, 146 mL/mi n >or=60 Not Available [facility] ([facility]) [address], [place], [address], 12/14/2018 18:35:13 12/14/19 19 12/14/2018 CMP, serum or plasm a BUN/creat ratio 17.7 10.0-2 8.0 Not Available [facility] ([facility]) [address], [place], [address], 12/14/2018 18:35:13 12/14/19 19 12/14/2018 CMP, serum or plasm a calcium 9.8 mg/dL 8.6-10 .4 Not Available [facility] ([facility]) [address], [place], [address], 12/14/2018 18:35:13 12/14/19 19 12/14/2018 CMP, serum or plasm a bilirubin, total 0.8 mg/dL <1.2 Not Available [facility] ([facility]) [address], [place], [address], 12/14/2018 18:35:13 12/14/19 19 12/14/2018 CMP, serum or plasm a alk phos 55 U/L 40-156 Not Available [facility] ([facility]) [address], [place], [address], 12/14/2018 18:35:13 12/14/19 19 12/14/2018 CMP, serum or plasm a AST 22 U/L <40 Not Available [facility] ([facility]) [address], [place], [address], 12/14/2018 18:35:13 12/14/19 19 12/14/2018 CMP, serum or plasm a ALT 38 U/L <41 Not Available [facility] ([facility]) [address], [place], [address], 12/14/2018 18:35:13 12/14/19 19 12/14/2018 CMP, serum or plasm a glucose 103 mg/dL 70-99 high Not Available [facility] ([facility]) [address], [place], [address], 12/14/2018 18:35:13 09/15/20 19 09/16/2019 lipid panel , serum cholesterol, total 140 mg/dL <200 normal Not Available [facility] [address], [place], [address], 09/16/2019 08:49:48 09/15/20 19 09/16/2019 lipid panel , serum HDL cholesterol 61 mg/dL >40 normal Not Available [facility] [address], [place], [address], 09/16/2019 08:49:48 09/15/2009/16/2019 lipid panel , serum triglyceride s 98 mg/dL <150 normal Not Available [facility] [address], [place], [address], 09/16/2019 08:49:48 09/15/2009/16/2019 lipid panel , serum [...] 2061- 2068 (http ://ed ucati on.Qu estDi LE TOTEs. com/f aq/FA Q164) Not Available [facility] [place] [facility] [address], [place], [address], 09/16/2019 08:49:48 09/15/2009/16/2019 lipid panel , serum chol/HDLC ratio 2.3 (calc ) <5.0 normal Not Available [facility] [place] [address], [place], [address], 09/16/2019 08:49:48 09/15/2009/16/2019 lipid panel , serum non HDL cholesterol 79 mg/dL _(nelson c) <130 normal For patie nts with diabe kanika plus 1 major ASCVD risk facto r, treat ing to a non-H DL-C goal of <100 mg/dL (LDL- C of <70 mg/dL ) is consi dered a thera peuti c optio n. Not Available [facility] [place] [address], [place], [address], 09/16/2019 08:49:48 09/15/2009/16/2019 CMP, serum or plasm a glucose 101 mg/dL 65-99 high Fasti ng refer ence inter astrid For someo ne witho ut known diabe kanika, a gluco se value betwe en 100 and 125 mg/dL is consi stent with predi abete s and shoul d be confi rmed with a follo w-up test. Not Available [facility] [place] [facility] [address], [place], [address], 09/16/2019 08:49:49 09/15/20 19 09/16/2019 CMP, serum or plasm a urea nitrogen (BUN) 16 mg/dL 7-25 normal Not Available [facility] [address] [place], [address], 09/16/2019 08:49:49 09/15/20 19 09/16/2019 CMP, serum or plasm a creatinine 0.91 mg/dL 0.60-1 .35 normal Not Available [facility] [address], [place], [address], 09/16/2019 08:49:49 09/15/2009/16/2019 CMP, serum or plasm a eGFR non-afr. russian 117 mL/mi n/1.7 3m2 > or = 60 normal Not Available [facility] [address], [place], [address], 09/16/2019 08:49:49 09/15/2009/16/2019 CMP, serum or plasm a eGFR 135 mL/mi n/1.7 3m2 > or = 60 normal Not Available [facility] [address], [place], [address], 09/16/2019 08:49:49 09/15/2009/16/2019 CMP, serum or plasm a BUN/creatini ne ratio NOT APPLIC ABLE (calc ) 6-22 Not Available [facility] [address], [place], [address], 09/16/2019 08:49:49 09/15/2009/16/2019 CMP, serum or plasm a sodium 141 mmol/ L 135-14 6 normal Not Available [facility] [address], [place], [address], 09/16/2019 08:49:49 09/15/20 19 09/16/2019 CMP, serum or plasm a potassium 4.0 mmol/ L 3.5-5. 3 normal Not Available [facility] [address], [place], [address], 09/16/2019 08:49:49 09/15/20 19 09/16/2019 CMP, serum or plasm a chloride 102 mmol/ L 98-110 normal Not Available [facility] [address], [place], [address], 09/16/2019 08:49:49 09/15/20 19 09/16/2019 CMP, serum or plasm a carbon dioxide 25 mmol/ L 20-32 normal Not Available [facility] [address], [place], [address], 09/16/2019 08:49:49 09/15/20 19 09/16/2019 CMP, serum or plasm a calcium 9.7 mg/dL 8.6-10 .3 normal Not Available [facility] [address], [place], [address], 09/16/2019 08:49:49 09/15/2009/16/2019 CMP, serum or plasm a protein, total 7.7 g/dL 6.1-8. 1 normal Not Available [facility] [address], [place], [address], 09/16/2019 08:49:49 09/15/2009/16/2019 CMP, serum or plasm a albumin 5.0 g/dL 3.6-5. 1 normal Not Available [facility] [address], [place], [address], 09/16/2019 08:49:49 09/15/2009/16/2019 CMP, serum or plasm a globulin 2.7 g/dL_ (calc ) 1.9-3. 7 normal Not Available [facility] [address], [place], [address], 09/16/2019 08:49:49 09/15/20 19 09/16/2019 CMP, serum or plasm a albumin/glob ulin ratio 1.9 (calc ) 1.0-2. 5 normal Not Available [facility] [address], [place], [address], 09/16/2019 08:49:49 09/15/20 19 09/16/2019 CMP, serum or plasm a bilirubin, total 0.7 mg/dL 0.2-1. 2 normal Not Available [facility] [address], [place], [address], 09/16/2019 08:49:49 09/15/2009/16/2019 CMP, serum or plasm a alkaline phosphatase 57 U/L 40-115 normal Not Available [facility] [address], [place], [address], 09/16/2019 08:49:49 09/15/20 19 09/16/2019 CMP, serum or plasm a AST 66 U/L 10-40 high Not Available [facility] [address], [place], [address], 09/16/2019 08:49:49 09/15/20 19 09/16/2019 CMP, serum or plasm a ALT 40 U/L 9-46 normal Not Available [facility] [address], [place], [address], 09/16/2019 08:49:49 09/15/2009/16/2019 TSH, serum or plasm a TSH 4.19 mIU/L 0.40-4 .50 normal Not Available [facility] [address], [place], [address], 09/16/2019 08:49:50 09/15/20 19 09/16/2019 CBC w/ auto diff white blood cell count 6.6 thous and/u L 3.8-10 .8 normal Not Available [facility] [place] [facility] [address], [place], [address], 09/16/2019 08:49:50 09/15/2009/16/2019 CBC w/ auto diff red blood cell count 5.43 kosta on/uL 4.20-5 .80 normal Not Available [facility] [address], [place], [address], 09/16/2019 08:49:50 09/15/2009/16/2019 CBC w/ auto diff hemoglobin 15.2 g/dL 13.2-1 7.1 normal Not Available [facility] [address], [place], [address], 09/16/2019 08:49:50 09/15/2009/16/2019 CBC w/ auto diff hematocrit 44.6 % 38.5-5 0.0 normal Not Available [facility] [address], [place], [address], 09/16/2019 08:49:50 09/15/2009/16/2019 CBC w/ auto diff MCV 82.1 fL 80.0-1 00.0 normal Not Available [facility] [address], [place], [address], 09/16/2019 08:49:50 09/15/2009/16/2019 CBC w/ auto diff MCH 28.0 pg 27.0-3 3.0 normal Not Available [facility] [address], [place], [address], 09/16/2019 08:49:50 09/15/2009/16/2019 CBC w/ auto diff MCHC 34.1 g/dL 32.0-3 6.0 normal Not Available [facility] [address], [place], [address], 09/16/2019 08:49:50 09/15/20 19 09/16/2019 CBC w/ auto diff RDW 12.8 % 11.0-1 5.0 normal Not Available [facility] [place] [facility] [address], [place], [address], 09/16/2019 08:49:50 09/15/20 19 09/16/2019 CBC w/ auto diff platelet count 290 thous and/u L 140-40 0 normal Not Available [facility] [place] [facility] [address], [place], [address], 09/16/2019 08:49:50 09/15/2009/16/2019 CBC w/ auto diff MPV 9.6 fL 7.5-12 .5 normal Not Available [facility] [place] [facility] [address], [place], [address], 09/16/2019 08:49:50 09/15/2009/16/2019 CBC w/ auto diff absolute neutrophils 3366 cells /uL 1500-7 800 normal Not Available [facility] [place] [facility] [address], [place], [address], 09/16/2019 08:49:50 09/15/20 19 09/16/2019 CBC w/ auto diff absolute lymphocytes 2416 cells /uL 850-39 00 normal Not Available [facility] [place] [address], [place], [address], 09/16/2019 08:49:50 09/15/2009/16/2019 CBC w/ auto diff absolute monocytes 667 cells /uL 200-95 0 normal Not Available [facility] [place] [facility] [address], [place], [address], 09/16/2019 08:49:50 09/15/2009/16/2019 CBC w/ auto diff absolute eosinophils 99 cells /uL 15-500 normal Not Available [facility] [address], [place], [address], 09/16/2019 08:49:50 09/15/20 19 09/16/2019 CBC w/ auto diff absolute basophils 53 cells /uL 0-200 normal Not Available [facility] [address], [place], [address], 09/16/2019 08:49:50 09/15/2009/16/2019 CBC w/ auto diff neutrophils 51 % normal Not Available [facility] [address], [place], [address], 09/16/2019 08:49:50 09/15/2009/16/2019 CBC w/ auto diff lymphocytes 36.6 % normal Not Available [facility] [address], [place], [address], 09/16/2019 08:49:50 09/15/2009/16/2019 CBC w/ auto diff monocytes 10.1 % normal Not Available [facility] [address], [place], [address], 09/16/2019 08:49:50 09/15/2009/16/2019 CBC w/ auto diff eosinophils 1.5 % normal Not Available [facility] [address], [place], [address], 09/16/2019 08:49:50 09/15/2009/16/2019 CBC w/ auto diff basophils 0.8 % normal Not Available [facility] [address], [place], [address], 09/16/2019 08:49:50 Result Notes None recorded. Problems Name Problem SNOMED Code Status Onset Date Resolution Date Notes Provider Name and Address Organization Details Recorded Time Thyrotoxico sis 39593447 Active 2016 Entered By: Sandhya castro Signed By: Glenda oJya Not Available [facility] 06:12:[address] Concept Active 2016 Entered By: Sandhya castro Signed By: Glenda Joya Not Available [facility] 8 06:12:53 Adult health examination Active 2016 Entered By: Glenda Joya Signed By: Glenda Joya Not Available [facility] 8 06:12:53 Hypothyroid ism 23326726 Active 2016 Entered By: Glenda Joya Signed By: Glenda Joya Not Available [facility] 8 06:12:53 Body mass index 30+ - obesity 970287927 Active 2016 Entered By: Glenda Joya Signed By: Glenda Joya Not Available [facility] 8 06:12:53 Problem Notes None recorded. Medical [...] Details Last Updated DateTime 9 18 /min 356947. 1 g 97.8 [degF] 120 mm[Hg] 78 mm[Hg] Royer Mckeon [facility] 9 08:07:28 Date Recorded Body height Body mass index (BMI) Provider Name and Address Organization Details Last Updated DateTime 12/13/2018 182.88 cm 30.2 kg/m2 Ernie Ley [facility] 12/13/2018 08:21:37 Date Recorded Body height Respiratory rate Body mass index (BMI) Body weight Heart rate Body temperature Oxygen saturation Oxygen saturation in Arterial blood by Pulse oximetry Systolic blood pressure Diastolic blood pressure Provider Name and Address Organization Details Last Updated DateTime 9 182.88 cm 18 /min 29.7 kg/m2 69954.7 3 g 97.9 /min 18 [degF] 98 % 98 % 122 mm[Hg] 74 mm[Hg] Cynthia Heredia [facility] 9 08:29:53 Social History Question Answer Notes LastModified by Organizat ion Details LastModified Time Tobacco Smoking Status Never Smoker Cynthia Heredia [facility] 09/15/2019 08:21:58 What Is Your Level Of Caffeine Consumption? Occasional [email or web address] Information not available 09/15/2019 How Much Tobacco Do You Chew? None [email or web address] Information not available 09/15/2019 Education 4 Year College [email or web address] Informat ion not available 09/15/2019 What Is Your Occupation? 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 Single Level Home [email or web address] Information not available 09/15/2019 Live Alone Or With Others? With Others [email or web address] Information not available 09/15/2019 Obese No [email or web address] Information not available 09/15/2019 Overweight No [email or web address] Information not available 09/15/2019 Are You Sexually Active? Yes [email or web address] Information not available 09/15/2019 Do You Or Have You Ever Used Smokeless Tobacco? Never Used Smokeless Tobacco [email or web address] Information not available 09/15/2019 How Much Tobacco Do You Smoke? No [email or web address] Information not available 09/15/2019 General Stress Level Medium [email or web address] Information not available 09/15/2019 How Many Years Have You Smoked Tobacco? 0 [email or web address] Information not available 09/15/2019 Sex: Unknown Functional Status Question Answer Note LastModified by Organizat ion Details LastModified Time What is your exercise level? Occasional [email or web address] Information not available 09/15/2019 Mental Status None recorded. Family History Relationship Description Onset Age of this Age Resolved Age Notes LastModified by Organization Details LastModified Time Father Disorder of thyroid gland [email or web address] Not available 08:21:29 Mother Malignant tumor of breast [email or web address] Not available 08:21:35 Notes:02/27/2017: Father (bi ol.): [...] B, unspecified formulation 5 completed Royer Mckeon [facility] 12/13/2018 08:06:04 DTaP 5 completed Royer Mckeon [facility] 12/13/2018 08:06:04 Hib (PRP-OMP) 5 [facility] Royer Mckeon [facility] 12/13/2018 08:06:04 DTaP 4 completed Royer Mckeon [facility] 12/13/2018 08:06:04 Hep B, unspecified formulation 4 completed Royer Mckeon [facility] 12/13/2018 08:06:04 Hib (PRP-OMP) 4 [facility] Royer Mckeon [facility] 12/13/2018 08:06:04 IPV 4 [facility] Royer Mckeon [facility] 12/13/2018 08:06:04 meningococcal MCV4, unspecified formulation 7 wen Mckeon [facility] 12/13/2018 08:06:04 MMR 5 completed Royer Mckeon [facility] 12/13/2018 08:06:04 MMR 9 completed Royer Mckeon [facility] 12/13/2018 08:06:04 Influenza, split virus, trivalent, preservative 8 completed Royer Mckeon [facility] 12/13/2018 08:06:04 DTaP 9 completed Royer Mckeon [facility] 12/13/2018 08:06:04 Td (adult), 2 Lf tetanus toxoid, preservative free, adsorbed 6 completed Royer Mckeon [facility] 12/13/2018 08:06:04 IPV 9 completed Royer Mckeon [facility] 12/13/2018 08:06:04 Hep B, unspecified formulation 4 completed Royer Mckeon [facility] 12/13/2018 08:06:04 Hib (PRP-OMP) 4 completed Royer Mckeon [facility] 12/13/2018 08:06:04 IPV 5 completed Royer Mckeon [facility] 12/13/2018 08:06:04 IPV 4 completed Royer Mckeon [facility] 12/13/2018 08:06:04 meningococcal MCV4, unspecified formulation 1 completed Royer Mckeon [facility] 12/13/2018 08:06:04 DTaP 4 completed Royer Mckeon [facility] 12/13/2018 08:06:04 Hib (PRP-OMP) 5 completed Royer Mckeon [facility] 12/13/2018 08:06:04 DTaP 6 completed Royer Mckeon null, [facility] 12/13/2018 08:06:05 [facility]10 Past Encounters Encounter ID Performer Location Encounter Start Date Encounter Closed Date Diagnosis/Indication Diagnosis SNOMED-CT Code Diagnosis ICD10 Code Diagnosis Note [id number] Ernie Ley Main Office [address] [place] [address] 12/13/2018 07:58:22 12/13/2018 08:46:17 Hypothyroidism 05981487 E03.9 Adult heal th examination 906424411 Z00.00 Body mass index 30+ - obesity 513859723 Z68.30 BMI 30.2 Active or passive immunization [id number] Z23 [id number] Mary Greenberg Main Office [address] [place] [address] 09/15/2019 08:18:48 09/15/2019 08:51:53 Hypothyroidism 33804995 E03.9 On levothyrox ine 150 mcg, continue current treatment. Blood drawn today. Recommend appointmen t every 6 months to monitor. Tinea corporis 26320537 B35.4 Treatment options and supportive measure discussed. Health Concerns Section Related Observation LastModified by Organization Detai ls LastModified Time None Recorded Concern Status LastModified by Organization Details LastModified Time None Recorded Advance Directives Directive None Recorded Payers Encounter Date Sequence Insurance Name Policy Number Policy Becker Covered Member ID Becker Member ID Guarantor Name 12/13/2018 1 [facility] [id number] Lon Oliva [id number] 2 Lon Oliva 09/15/2019 1 [facility] [id number] Lonmini Oliva [id number] 2 Lon Lanceparveen Notes Date Note Type [...] SH & Meds reviewed. 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 Has not had this season's flu shot and doesn't want it. Would like Tdap shot. No tobacco use. Patient is fasting, will do blood work. Ernie Jil nicole [facility] 12/13/2018 08:48:12 09/15/2019 text/html Patient presents today for 9 month follow up visit, requests blood draw. Declines having STD labs drawn today. He lives in [place] town where there is [place] PCP. He needs to go to urgent care or ER for any care (states the urgent care does not take his insurance, so he ends up going to ER for anything). 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 He was seen in ER in [place] several weeks ago for fungal infection in his left armpit. He has been applying lotrimin and cortizone which helped and rash resolved. He then had recurrence of the rash in his armpit and in his groin as well. He has been applying the creams again the the rash in groin has resolved and is almost resolved in his armpit. Mary rivera [facility] 09/15/2019 08:58:47
== END 2024-11-27 10:10 | disposition home or self-care (01) ==
PROVIDERS: PCP Nurse Practitioner Family; Visit Provider Nurse Practitioner Family
DX: Z13.9 Encounter for screening, unspecified (principal); N43.3 Hydrocele, unspecified
CPT/HCPCS: 99213

== ENCOUNTER → 2024-11-27 09:27 | Outpatient (BNVA) | payer BC, SELFPAY | PROVIDERS: PCP Nurse Practitioner Family; Visit Provider Nurse Practitioner Family | DX: N43.3 Hydrocele, unspecified (principal) | CPT/HCPCS: 81003 ==

== ENCOUNTER 2025-07-01 08:34 | Outpatient (REF) | payer OTHER, SELFPAY ==
[2025-07-01 11:48] LABS: MANUAL DIFF FLAG NO
[2025-07-01 11:52] LABS: Hematocrit 42.9 % (42.0-52.0); Hemoglobin 14.2 g/dl (14.0-18.0); Imm Gran Abs Auto 0.01 X10*3/uL (0.00-0.03); Imm Gran Pct Auto 0.2 % (0.0-0.4); Lymphocytes Absolute Auto 1.6 X10*3/uL (1.2-4.9); Mean Corpuscular HGB Conc 33.1 g/dl (31.0-36.0); Mean Corpuscular Hemoglobin 27.7 pg (27.0-33.0); Mean Corpuscular Volume 83.6 fL (80.0-98.0); NRBC Abs Auto 0.000 X10*3/uL (0.0-0.012); NRBC Pct Auto 0.0 /100WBC (0.0-0.2); Platelet Count 272 X10*3/uL (160-400); Red Blood Count 5.13 X10*6/uL (4.60-5.80); White Blood Count 5.3 X10*3/uL (4.8-10.8)
[2025-07-01 12:21] LABS: Alanine Aminotransferase 63 U/L (0-40); Albumin Level 5.0 g/dL (3.5-5.0); Alkaline Phosphatase 54 U/L (39-117); Anion Gap 11 (12-20); Aspartate Amino Transferase 38 U/L (5-37); Blood Urea Nitrogen 16 mg/dL (9-16); Calcium 9.7 mg/dL (8.4-10.2); Carbon Dioxide 29 mmol/L (22-29); Chloride 107 mmol/L (96-108); Cholesterol 119 mg/dL (<200); Estimated Glomerular Filt Rate > 60; HDL Cholesterol 46 mg/dL (>40); Potassium 4.3 mmol/L (3.3-5.1); Sodium 143 mmol/L (135-145); Total Protein 7.3 g/dL (6.5-8.0); Triglycerides 88 mg/dL (<150)
[2025-07-01 14:56] LABS: Appearance Urine Clear; Glucose Urine UA Negative (Negative); PH 6.0 (5.0-9.0); Specific Gravity - Urine 1.020 (1.005-1.025)
[2025-07-01 15:20] LABS: Microalbum/Creatinine Ratio Ur 4.2 ug/mg cr (<30)
== END 2025-07-01 08:35 | disposition home or self-care (01) ==
LOC: HO.WFDLDS 08:34
PROVIDERS: Nurse Practitioner Family; Visit Provider Physician Assistant
DX: Z00.00 Encounter for general adult medical examination without abnormal findings (principal); E66.9 Obesity, unspecified; R74.01 Elevation of levels of liver transaminase levels; E89.0 Postprocedural hypothyroidism; R73.01 Impaired fasting glucose; R30.0 Dysuria; E55.9 Vitamin D deficiency, unspecified; R79.89 Other specified abnormal findings of blood chemistry; R89.0 Abnormal level of enzymes in specimens from other organs, systems and tissues; F50.819 Binge eating disorder, unspecified; G25.81 Restless legs syndrome; G47.00 Insomnia, unspecified; N63.20 Unspecified lump in the left breast, unspecified quadrant; R07.89 Other chest pain; M25.552 Pain in left hip; Z79.890 Hormone replacement therapy; Z79.899 Other long term (current) drug therapy; Z68.31 Body mass index [BMI] 31.0-31.9, adult
CPT/HCPCS: 36415; 80053; 80061; 81003; 82043; 82306; 82570; 83036; 84443; 84481; 85025

== ENCOUNTER 2025-07-01 13:49 | Outpatient (AMB) | payer OTHER, SELFPAY ==
--- NOTE | 2025-07-01 13:59 | MHC.PC.OV ---
Vital Signs 07/01/25 14:02 Height 6 ft Weight 233 lb 4 oz BMI 31.6 BP 124/68 Blood Pressure Location Rt brachial Position Sitting Respiration 14 Pulse 90 Pulse Source Pulse Oximeter Pulse Oximetry (%) 98 Oxygen Delivery Method Room Air Intake Visit Reasons: SHIREEN from [facility] Intake Note: New patient visit Agronomy Specialist Required: No Allergies No Known Allergies Allergy (Verified 11/27/24 09:54) Medication List - Last Reconciled 07/01/25 by Pippa De Guzman PA-C cholecalciferol (vitamin D3) 50 mcg PO DAILY levothyroxine 150 mcg PO DAILY 90 days Tobacco use date assessed: 09/25/24 Dental Screening Dental Screen Date: 09/25/24 HPI SHIREEN from [facility] HPI Details Patient is a 30-year-old male who presents today to [facility]. He is transferring internally. Endo: Has a history of postablative hypothyroidism and is on levothyroxine 150 mcg. Last TSH was WNL. Chest: Over the last few months he has noticed that his chest feels tender with certain movements. He was pushing on his left breast and noted around the nipple it felt a little bit cisse/enlarged when compared to the other side and tender. He states when he stretches a certain way he can feel it. No shortness a breath or exertional chest pain. He states it is reproducible by certain movements and palpation. No family history of breast cancer. Psych: Has a history of binge eating disorder and states that for the last few weeks he has been a lot better and in control. He thinks his elevated liver tests were in direct relation to his eating habits. He is motivated to control his diet. He does not think he needs help with this at this point. He does have a history of restless legs and states that he does not sleep that well. He is often tired and suffers from insomnia. [facility] Medical History Arrhythmia Fatty liver Hypertriglyceridemia Depression Hypothyroid Anxiety ADD (attention deficit disorder) Heart palpitations Surgical History Hx of circumcision History of placement of ear tubes Sigel teeth extracted Family History Father Thyroid disease Mother Thyroid disease Lymphoma Melanoma Breast cancer Social History (Updated 07/01/25 @ 14:04 by Mariaelena Sykes CMA) Housing: Condominium Alcohol intake: former Comment: quit 05/2025 Patient Tobacco Use Status: Never used Tobacco e-Cigarette/Vaping Use: Former Use Second Hand Smoke Exposure: No Substance Use Type: Former Substance User and Marijuana service: No Current occupational status: employed 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 Current occupational exposures/hazards: Yes Cognitive needs: No Hearing needs: No Vision needs: No Questionnaire Thrive Questionnaire Date Thrive assessed: 09/25/24 I am a: Patient What is your living situation today?: I have a steady place to live Within the past 12 months, did the food you bought not last and you didn't have the money to get more?: Never true Within the past 12 months, did you worry whether your food would run out before you got money to buy more?: Never true Do you have trouble paying for medicines?: No Do you have trouble getting transportation to medical appointments?: No Do you have trouble paying your heating and electricity bill?: No Do you have trouble taking care of your child, family member or friend?: No Do you have trouble with day-to-day activities such as bathing, preparing meals, shopping, managing finances, etc.?: No Are you currently unemployed and looking for a job?: No Are you interested in more education?: No Please select the resources that you would like help with: None Currently or been in a relationship where the following occur: No concerns reported THRIVE Score: 0 VINAY-7 AMB Questionnaire VINAY-7 Date VINAY - 7 assessed: 06/03/24 Source: Developed by Drs. Marcelino Agrawal, Eugenia El, Jerrell Gates and colleagues, with an educational carlos from [employer]. Physical exam (Primary Care) Vital Signs: Last Vital Signs Pulse 90 07/01/25 14:02 Resp 14 07/01/25 14:02 BP 124/68 07/01/25 14:02 Pulse Ox 98 07/01/25 14:02 Oxygen Delivery Method Room Air 07/01/25 14:02 BMI result Body Mass Index 31.6 Tobacco/Smoking Status: Tobacco use Status Tobacco use date assessed 09/25/24 07/01/25 14:02 Patient Tobacco Use Status Never used Tobacco 07/01/25 14:04 e-Cigarette/Vaping Use Former Use 07/01/25 14:07 Thrive Assessment: Date of Thrive Assessment Date Thrive assessed 09/25/24 07/01/25 14:02 Currently or been in a relationship where the following occur: No concerns reported Const Orientation/consciousness: patient oriented x3 HENMT Ears: hearing grossly normal bilaterally Neck Thyroid: Thyroid normal Lymphatic: no lymphadenopathy noted Chest Other: There does appear to be a slight fullness when compared to the right side surrounding the left nipple. No drainage noted. No definite mass palpated. It was tender to palpation surrounding the nipple of the left breast. Chest palpation & inspection: normal inspection of the chest Breast/axilla inspection: normal inspection of the axillae Resp Auscultation: clear to auscultation bilaterally Cardio Rate: regular rate Rhythm: regular rhythm Heart sounds: S1 normal heart sound present and S2 normal heart sound present GI Inspection: Yes normal to inspection Palpation (GI): Soft to palpation and Other GI palpation findings present (nontender, no cva tenderness) Auscultation: normoactive bowel sounds Rectal Exam - Male: Yes deferred Skin General skin exam: no rashes or lesions noted Neuro General: patient oriented x3, gait normal and no focal motor deficits Coding Level of Care Code Est Pt Level 4 (68064) Complex EM visit Add On G2211 Diagnoses Elevated LFTs R79.89 Postablative hypothyroidism E89.0 Binge eating disorder, unspecified severity F50.819 Eating disorder severity or remission status: unspecified severity Restless leg G25.81 Insomnia G47.00 Left breast lump N63.20 Atypical chest pain R07.89 Left hip pain M25.552 Assessment & Plan Assessment & Plan (1) Elevated LFTs: Code(s): R79.89 - Other specified abnormal findings of blood chemistry Category: Medical Plan: recheck labs in 4-6 weeks currently following healthy diet us ordered (2) Postablative hypothyroidism: Code(s): E89.0 - Postprocedural hypothyroidism Category: Medical Plan: continue levothyroxine dosing (3) Binge eating disorder: Code(s): F50.819 - Binge eating disorder, unspecified Category: Medical Qualifiers: Eating disorder severity or remission status: unspecified severity Qualified Code(s): F50.819 - Binge eating disorder, unspecified Plan: currently in remission will let me know if anything changes (4) Restless leg: Code(s): G25.81 - Restless legs syndrome Category: Medical Plan: plan to do lab sleep study he will try magnesium/calm supplement (5) Insomnia: Code(s): G47.00 - Insomnia, unspecified Category: Medical Plan: as above (6) Left breast lump: Code(s): N63.20 - Unspecified lump in the left breast, unspecified quadrant Category: Medical Plan: u/s ordered (7) Atypical chest pain: Code(s): R07.89 - Other chest pain Category: Medical Plan: cxr ordered (8) Left hip pain: Code(s): M25.552 - Pain in left hip Category: Medical Plan: xr ordered pt ordered Orders: Orders US abdomen comp w elastography 07/01/25 E89.0 - Postprocedural hypothyroidism, F50.819 - Binge eating disorder, unspecified, R79.89 - Other specified abnormal findings of blood chemistry TSH reflex Free T4 07/01/25 G25.81 - Restless legs syndrome, R53.83 - Other fatigue, R79.89 - Other specified abnormal findings of blood chemistry, R94.5 - Abnormal results of liver function studies Hepatitis C Antibody 07/01/25 G25.81 - Restless legs syndrome, R53.83 - Other fatigue, R79.89 - Other specified abnormal findings of blood chemistry, R94.5 - Abnormal results of liver function studies US breast LT limited 07/01/25 N63.20 - Unspecified lump in the left breast, unspecified quadrant XR chest 2V 07/01/25 R07.89 - Other chest pain XR hip LT min 2V 07/01/25 M25.552 - Pain in left hip RT PSG in-lab sleep study 07/01/25 G25.81 - Restless legs syndrome, G47.00 - Insomnia, unspecified, R53.83 - Other fatigue Liver Panel 07/01/25 G25.81 - Restless legs syndrome, R53.83 - Other fatigue, R79.89 - Other specified abnormal findings of blood chemistry, R94.5 - Abnormal results of liver function studies Ferritin 07/01/25 G25.81 - Restless legs syndrome, R53.83 - Other fatigue, R79.89 - Other specified abnormal findings of blood chemistry, R94.5 - Abnormal results of liver function studies IRON PROFILE 07/01/25 G25.81 - Restless legs syndrome, R53.83 - Other fatigue, R79.89 - Other specified abnormal findings of blood chemistry, R94.5 - Abnormal results of liver function studies Vitamin B12 and Folate 07/01/25 G25.81 - Restless legs syndrome, R53.83 - Other fatigue, R79.89 - Other specified abnormal findings of blood chemistry, R94.5 - Abnormal results of liver function studies Gamma Glutamyl Transpeptidase 07/01/25 G25.81 - Restless legs syndrome, R53.83 - Other fatigue, R79.89 - Other specified abnormal findings of blood chemistry, R94.5 - Abnormal results of liver function studies Hepatitis B Surface Antigen 07/01/25 G25.81 - Restless legs syndrome, R53.83 - Other fatigue, R79.89 - Other specified abnormal findings of blood chemistry, R94.5 - Abnormal results of liver function studies PT Evaluation and Treatment 07/01/25 M25.552 - Pain in left hip, R07.89 - Other chest pain Medications: Refilled cholecalciferol (vitamin D3) 50 mcg PO DAILY 90 caps 3RF
[2025-07-01 14:02] VITALS: BP 124/68; PULSE 90; RESP 14; O2SAT 98; BMI 31.6
== END 2025-07-01 14:47 | disposition home or self-care (01) ==
LOC: HO.HMCFM 13:50
PROVIDERS: PCP Physician Assistant; Visit Provider Physician Assistant
DX: R79.89 Other specified abnormal findings of blood chemistry (principal); E89.0 Postprocedural hypothyroidism; F50.819 Binge eating disorder, unspecified; G25.81 Restless legs syndrome; G47.00 Insomnia, unspecified; N63.20 Unspecified lump in the left breast, unspecified quadrant; R07.89 Other chest pain; M25.552 Pain in left hip

== ENCOUNTER 2025-07-09 14:07 | Outpatient (REF) | payer OTHER, SELFPAY ==
--- NOTE | ~2025-07-09 | XR_ITS ---
EXAMINATION: XR HIP, LEFT CLINICAL INFORMATION: M25.552 - Pain in left hip COMPARISON: None available. TECHNIQUE: Two views of the left hip. FINDINGS: No visible acute fracture, dislocation or suspicious bony lesion. Hip joint space is maintained. Left SI joint appears unremarkable. Intact symphysis pubis. No abnormal soft tissue calcification. XR/XR hip LT min 2V IMPRESSION: No radiographic evidence of acute osseous findings. Electronically signed by: Elijah Russell MD 07/09/2025 02:29 PM EDT
--- NOTE | ~2025-07-09 | XR_ITS ---
EXAMINATION: XR CHEST CLINICAL INFORMATION: R07.89 - Other chest pain COMPARISON: None available. TECHNIQUE: 2 views of the chest were obtained. FINDINGS: The cardiomediastinal silhouette is within normal limits. The lungs are well expanded. There is no focal consolidation, edema, or effusion. No pneumothorax. No acute osseous abnormality. XR/XR chest 2V IMPRESSION: No acute cardiopulmonary disease Electronically signed by: Elijah Russell MD 07/09/2025 02:31 PM EDT
--- OUTSIDE RECORDS SUMMARY | 2025-07-09 17:54 | XMS_ITS | Clinical Summary ---
Author Organization [facility] Address [address] [place] [id number] Phone Care Team Providers Care Skin Former Name Role Phone Pcp, Unknown Primary Care Provider Unavailabl e Social History Tobacco Use Types Packs/Day Years Used Date Smoking Tobacco: Never Assessed Education Answer Date Recorded Are you interested in more education? Not on johanna e 11/08/2023 Are you concerned about learning? Not on file 11/08/2023 No 11/08/2023 No 11/08/2023 Digital Access Answer Date Recorded No 11/08/2023 No 11/08/2023 Reliable internet access at home? Not on file 11/08/2023 Device with a working camera? Not on file Sex and Gender Information Value Date Recorded Sex Assigned at Not on file Legal Sex Male 3:26 PM EST Gender Identity Not on file Sexual Orientation Not on file Plan of Treatment Health Maintenance Due Date Last Done Comments Adult Td,Tdap Booster 1994 DEPRESSION SCREENING 2006 SMOKING Hx and SMOKELESS TOB ACCO SCREENING 2007 HEPATITIS C SCREENING 2012 HIV ONE-TIME SCREENING (18-6 5 YEARS) 2012 INFLUENZA VACCINE (#1) 2025 COVID-19 VACCINE (2024-2 6 season) 2025 HEPATITIS A VACCINES Aged Out No long er eligible based on patient's age to complete this topic HIB VACCINES Aged Out No longer eligi ble based on patient's age to complete this topic MENINGOCOCCAL VACCINES (ACWY) Aged Out No longer eligible based on patient's age to complete this topic MENINGOCOCCAL VACCINES (B) Aged Out N o longer eligible based on patient's age to complete this topic PNEUMOCOCCAL VACCINES (0-49 years) Aged Out No longer eligible based on patient's age to complete this topic Medical Devices Not on [place] [address] [place] [address] [facility] [place] [address] [place] [address] Care Teams Skin Former Relationship Specialty Start Date End Date Pcp, Unknown PCP - General 11/08/23 Additional Source Comments The information contained in this document represents components of the legal health record. It is not the complete legal health record.[facility]
== END 2025-07-09 14:08 | disposition home or self-care (01) ==
LOC: HO.HMGCX 14:07
PROVIDERS: PCP Physician Assistant; Visit Provider Physician Assistant
DX: M25.552 Pain in left hip (principal); R07.89 Other chest pain
CPT/HCPCS: 71046; 73502

== ENCOUNTER → 2025-07-09 14:11 | Outpatient (BNV) | payer OTHER, SELFPAY | PROVIDERS: PCP Physician Assistant; Visit Provider Radiology Diagnostic Ultrasound | DX: M25.552 Pain in left hip (principal); R07.89 Other chest pain | CPT/HCPCS: 71046; 73502 ==

== ENCOUNTER 2025-07-10 07:12 | Outpatient (AMB) | payer OTHER, SELFPAY ==
--- OUTSIDE RECORDS SUMMARY | 2025-07-10 07:14 | XMS_ITS | Clinical Summary ---
Author Organization [facility] Address [address] [place] [phone] Phone Care Team Providers Care Pharm Tech Name Role Phone Pcp, Unknown Primary Care [...] topic Medical Devices Not on [place] [address] [place] [address] [facility] [place] [address] [place] [address] Care Teams Pharm Tech Relationship Specialty Start Date End Date Pcp, Unknown PCP - General 11/08/23 Additional Source Comments The information contained in this document represents components of the legal health record. It is not the complete legal health record.[facility]
--- NOTE | 2025-07-10 07:24 | MHC.OFFWIV ---
Intake Vital Signs 07/10/25 07:25 07/10/25 07:28 Height 6 ft Weight 231 lb BMI 31.3 BP 110/88 Blood Pressure Location Rt brachial Position Sitting Respiration 16 16 Pulse 71 63 Pulse Source Pulse Oximeter Pulse Oximeter Temp 98.0 F Temp Source Oral Pulse Oximetry (%) 97 98 Oxygen Delivery Method Room Air Room Air Intake Visit Reasons: ep heart palpitation Intake Note: Pt ambulated(I) gait steady to triage corner. Pt is a/o x 3, no shortness of breath noted. Pt speaks in full sentences. Pt c/o heart palpitation and skipping a beat since Sunday of this week. Pt stated as a youth he had hx of tachycardia. Pt is also c/o pain under left breast area with movement of bilateral arms. Pt appears slightly anxious. Lungs - cta. Heart sounds - regular. Skin pink warm and dry. Pt denied any chest pain, headache, dizziness/lightheadiness. [facility], provider was with another pt. Patient Tobacco Use Status: Never used Tobacco Allergies No Known Allergies Allergy (Verified 07/10/25 07:29) HPI HPI Comments History of Present Illness Details History of Present Illness - The patient is a 30-year-old male presenting with heart palpitations. - Heart palpitations began on Sunday morning, characterized by a sensation of a skipped or extra heartbeat, and an urge to swallow or take a deep breath, which did not alleviate the symptoms. - The palpitations occur at julianna and dusk, disrupting sleep but not associated with dizziness, shortness of breath, or pain. - The patient has a history of anxiety and childhood tachycardia, which was deemed benign. - Thyroid problems were noted to have started around age 11, with a normal TSH level checked recently. - Previous cardiac evaluations included a heart monitor in 2019, which showed no significant findings. Review of Systems - Cardiovascular: Reports palpitations, denies chest pain, dyspnea, or dizziness. - Endocrine: Reports history of thyroid problems, denies current symptoms. All systems reviewed and are unremarkable except as noted in HPI Physical Exam General: Cooperative, healthy appearing, comfortable, no acute distress and well developed Orientation: Patient oriented x3 Limitations: No limitations Head: Normal to inspection Ears: Hearing grossly normal bilaterally Nose: Normal External nose present Face and sinus: Normal facial exam Eyes: Appearance normal, both eyes and all related structures Neck: Normal visual inspection and Yes full ROM Respiratory: Normal respiratory effort and able to speak in complete sentences. Clear to auscultation Cardiac: regular rate and rhythem, normal s1 and s2 Skin: No rashes or lesions noted Neuro: Patient oriented x3 Extremities: Normal to inspection PFSH Medical History Arrhythmia Fatty liver Hypertriglyceridemia Depression Hypothyroid Anxiety ADD (attention deficit disorder) Heart palpitations Surgical History Hx of circumcision History of placement of ear tubes [place] teeth extracted Family History Father Thyroid disease Mother Thyroid disease Lymphoma Melanoma Breast cancer Social [facility] Alcohol intake: former Comment: quit 05/2025 Patient Tobacco Use Status: Never used Tobacco e-Cigarette/Vaping Use: Former Use Second Hand Smoke Exposure: No Substance Use Type: Former Substance User and Marijuana service: No Current occupational status: employed 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 - Recommend Holter monitor to capture heart rhythm over an extended period. Messaged PCP. - Possible referral to emergency room rn for further evaluation and management s/p monitor. - Consideration of anxiety as a contributing factor to palpitations, though not confirmed as the primary cause. - Monitor for recurrence and go to ED if associated with chest pain, dizziness, shortness of breath, sweating, abdominal pain, shoulder pain or neck pain. - Recent TSH levels normal, continue monitoring thyroid function as needed. Orders: Orders AMB EKG-In Office Today R00.2 - Palpitations Coding Level of Care Code Est Pt Level 4 (93674) Diagnoses Palpitations with regular cardiac rhythm R00.2
[2025-07-10 07:25] VITALS: PULSE 71; RESP 16; O2SAT 97
[2025-07-10 07:28] VITALS: BP 110/88; PULSE 63; RESP 16; TEMP 36.7; O2SAT 98; BMI 31.3
== END 2025-07-10 08:04 | disposition home or self-care (01) ==
PROVIDERS: PCP Physician Assistant; Visit Provider Physician Assistant
DX: R00.2 Palpitations (principal)

== ENCOUNTER 2025-08-05 11:16 | Outpatient (REF) | payer OTHER, SELFPAY ==
--- NOTE | ~2025-08-05 | US_ITS ---
EXAMINATION: MM DIAGNOSTIC DIGITAL BREAST TOMOSYNTHESIS, BILATERAL Limited left breast ultrasound. CLINICAL INFORMATION: 30-year-old female with palpable left breast lump upper outer left breast. Family history of breast cancer including mother at age 51. COMPARISON: Mammography: Comparison is made with relevant prior exams. TECHNIQUE: Digital breast mammography with tomosynthesis is performed in both the craniocaudal and mediolateral oblique views along with computer-aided detection (CAD). FINDINGS: Right: There are no significant masses, abnormal calcifications, or other abnormalities. Left: BB marker in the upper outer breast middle to posterior depth without underlying abnormal finding at site of patient's palpable lump. No suspicious masses calcifications or other abnormal findings. Targeted color Doppler ultrasound scanning in the left breast from 2- 6:00 in the area the patient's palpable lump demonstrates normal fibroglandular breast tissue. There is no sonographic abnormal findings. Results are discussed with the patient at time of visit. US/US Breast LT Limited Mamm Only IMPRESSION: Right: Negative. Left: No mammographic or sonographic abnormal finding to correlate with the patient's palpable left breast lump. Recommend clinical evaluation follow-up. If palpable lump and/or pain increases or persists recommend additional repeat diagnostic imaging for further evaluation. ASSESSMENT: BI-RADS Category 1: Negative RECOMMENDATION: Recommend clinical evaluation and followup Electronically signed by: Nelly Rogers DO 08/05/2025 12:43 PM NAE
--- OUTSIDE RECORDS SUMMARY | 2025-08-05 13:59 | XMS_ITS | Clinical Summary ---
Author Organization [facility] Address [address] [place] [phone] Phone Care Team Providers Care Forest Management Professor Name Role Phone Pcp, Unknown Primary Care [...] topic Medical Devices Not on file [place] [address] [place] [address] [facility] [place] [address] [place] [address] Care Teams Forest Management Professor Relationship Specialty Start Date End Date Pcp, Unknown PCP - General 11/08/23 Additional Source Comments The information contained in this document represents components of the legal health record. It is not the complete legal health record.[facility]
== END 2025-08-05 11:17 | disposition home or self-care (01) ==
LOC: HO.MAMMO 11:16
PROVIDERS: PCP Physician Assistant; Visit Provider Physician Assistant
DX: N63.21 Unspecified lump in the left breast, upper outer quadrant (principal)
CPT/HCPCS: 76642; 77062; 77066

== ENCOUNTER → 2025-08-05 11:30 | Outpatient (BNV) | payer OTHER, SELFPAY | PROVIDERS: PCP Physician Assistant; Visit Provider Internal Medicine | DX: N63.21 Unspecified lump in the left breast, upper outer quadrant (principal) | CPT/HCPCS: 76642; 77062; 77066 ==

== ENCOUNTER → 2025-08-11 20:30 | Outpatient (REF) | payer OTHER, SELFPAY | LOC: HO.SL 20:30 | PROVIDERS: PCP Physician Assistant; Visit Provider Physician Assistant | DX: G25.81 Restless legs syndrome (principal); G47.00 Insomnia, unspecified; R53.83 Other fatigue | CPT/HCPCS: 95810 ==

== ENCOUNTER 2025-09-04 13:22 | Outpatient (REF) | payer OTHER, SELFPAY ==
--- NOTE | ~2025-09-04 | US_ITS ---
EXAMINATION: US ABDOMEN COMPLETE WITH LIVER ELASTOGRAPHY HISTORY: F50.819 - Binge eating disorder, unspecified TECHNIQUE: Real-time grayscale ultrasound imaging of the abdomen was performed and images were reviewed. COMPARISON: There are no prior studies available for comparison. FINDINGS: Liver: The right lobe of the liver measures 13.2 cm in size. The left lobe of the liver measures 9.1 cm in size. The liver demonstrates normal homogeneous echotexture. No focal mass or intrahepatic biliary ductal dilatation is identified. There is normal hepatopedal flow in the portal vein. Ultrasound elastography of the liver was performed with 10 separate measurements of the liver parenchyma with the patient in the supine position. Measurements were obtained approximately 2 cm below Elsa's capsule and perpendicular to the capsule. The median shear wave velocity is 1.77 m/s. The interquartile range/median (IQR/median) is 0.15. Gallbladder and biliary tree: The gallbladder is unremarkable, without evidence of calculi, wall thickening, or pericholecystic fluid. There is no sonographic Malik sign. The common bile duct is normal in caliber measuring 3 mm. Kidneys: The right kidney measures 11.6 cm in length. The left kidney measures 12.6 cm in length. The kidneys are unremarkable, without evidence of masses, hydronephrosis, or calculi. Pancreas: The pancreatic head, neck, and body are unremarkable. The pancreatic tail is obscured by bowel gas. Spleen: The spleen is normal in size and contour, measuring 11.8 cm in length. Abdominal aorta and inferior vena cava: The visualized portions of the abdominal aorta and inferior vena cava are normal in caliber. There is no free fluid in the abdomen. US/US abdomen comp w elastography IMPRESSION: Unremarkable abdominal ultrasound. The median shear wave velocity in the liver is 1.77 m/s, corresponding to a median liver stiffness of 9.45 kPa. The IQR/median value is 0.15. This is indicative of a quality data set. Findings are indicative of a high elastography value suggestive of compensated advanced chronic liver disease. REFERENCE: Society of Radiologists in Ultrasound Liver Stiffness Thresholds (2019): LIVER STIFFNESS THRESHOLDS: *Shear wave velocity less than 1.3 m/s (Liver Stiffness equal or less than 5 kPa): High probability of being normal. *Shear wave velocity less than 1.7 m/s (Liver Stiffness less than 9 kPa): In the absence of other known clinical signs, rules out compensated advanced chronic liver disease. *Shear wave velocity between 1.7-2.1 m/s (Liver Stiffness 9-13 kPa): Suggestive of compensated advanced chronic liver disease but need further test for confirmation. *Shear wave velocity between 2.1-2.4 m/s (Liver Stiffness 13-17 kPa): Rules in compensated advanced chronic liver disease. *Shear wave velocity greater than 2.4 m/s (Liver Stiffness over 17 kPa): Suggestive of clinically significant portal hypertension. QUALITY OF DATA SET: *IQR/Median value equal or less than 0.15 implies a quality data set. *IQR/Median value over 0.15 implies a poor quality data set. SIGNIFICANT CHANGE FROM PRIOR EXAM: Significant change if liver stiffness measurement is 10% or greater from prior exam. OTHER CONSIDERATIONS: The stage of liver fibrosis may be overestimated in the setting of acute hepatitis, liver inflammation, elevated liver function tests, hepatic vascular congestion, obstructive cholestasis, non-fasting state, and infiltrative diseases such as amyloidosis and lymphoma. In some patients with NAFLD, the liver stiffness thresholds for compensated advanced chronic liver disease may be lower. In causes other than viral hepatitis and NAFLD, liver stiffness thresholds are not well established. Electronically signed by: Marcelino Horan MD 09/04/2025 02:09 PM NAE
== END 2025-09-04 13:23 | disposition home or self-care (01) ==
LOC: HO.US 13:22
PROVIDERS: PCP Physician Assistant; Visit Provider Physician Assistant
DX: E89.0 Postprocedural hypothyroidism (principal); R79.89 Other specified abnormal findings of blood chemistry; F50.819 Binge eating disorder, unspecified
CPT/HCPCS: 76700; 76981

== ENCOUNTER → 2025-09-04 13:27 | Outpatient (BNV) | payer OTHER, SELFPAY | PROVIDERS: PCP Physician Assistant; Visit Provider Radiology Diagnostic Radiology | DX: F50.819 Binge eating disorder, unspecified (principal) | CPT/HCPCS: 76700 ==